=== PATIENT | female | born 1990 | race Caucasian/White ===

== ENCOUNTER 2022-12-20 09:59 | Emergency (ER) | payer OTHER, SELFPAY ==
[2022-12-20] VITALS (14 sets, daily range): BP systolic 111–128; BP diastolic 77; PULSE 69–89; RESP 13–20; TEMP 36.8; O2SAT 100
--- NOTE | ~2022-12-20 | XR_ITS ---
EXAMINATION: XR chest 1V portable DATE: 12/20/2022 13:24 INDICATION: Cough and shortness of breath. TECHNIQUE: A single frontal view of the chest was obtained. COMPARISON: None. FINDINGS: There is no pneumonia, pleural effusion, or pneumothorax. The heart size is normal. IMPRESSION: 1. No acute cardiopulmonary disease. Reviewed, dictated and finalized at location A.
--- NOTE | ~2022-12-20 | US_ITS ---
EXAMINATION: US OB <=14 wk fetus w TV DATE: 12/20/2022 13:08 INDICATION: Left lower quadrant abdominal pain. Early . TECHNIQUE: Real-time transabdominal and transvaginal pelvic ultrasound was performed. COMPARISON: None. FINDINGS: TRANSABDOMINAL ULTRASOUND: The uterus measures 9.9 x 6.1 x 7.1 cm. TRANSVAGINAL ULTRASOUND: There is an intrauterine gestational sac. A yolk sac is identified. The fet al crown rump length measures 2.8 cm, which correlates with an estimated gestational age of 9 weeks a nd 4 day(s) (+/-) 6 day(s). heart motion is identified measuring 171 beats per minute (bpm) by M-mode Doppler. The right ovary measures 3.7 x 2.0 x 2.0 cm. The left ovary measures 2.8 x 1.5 x 1.5 cm. There is normal vascular flow in the ovaries. There is no free fluid in the pelvis. IMPRESSION: 1. Single living intrauterine gestation with estimated date of delivery of 07/21/2023. Reviewed, dictated and finalized at location A. IMPRESSION: 1. Single living intrauterine gestation with estimated date of delivery of .
[2022-12-20 10:35] LABS: Basophils Percent Auto 0.4 % (0.2-1.2); Eosinophils Absolute Auto 0.1 K/mm3 (0-0.3); Eosinophils Percent Auto 0.6 % (0-4.4); Hematocrit 38.6 % (37.0-47.0); Hemoglobin 12.6 g/dL (12.0-15.0); Immature Granulocyte Absolute 0.02 K/mm3 (0.00-0.031); Immature Granulocyte Percent A 0.2 % (0-0.5); Lymphocytes Absolute Auto 2.27 K/mm3 (0.9-3.2); Lymphocytes Percent Auto 27.1 % (18.3-44.2); Mean Corpuscular HGB Conc 32.6 g/dl (32-36); Mean Corpuscular Hemoglobin 28.2 pg (26-34); Mean Corpuscular Volume 86.4 fl (80-100); Mean Platelet Volume 8.4 fl (7.4-10.4); Monocytes Absolute Auto 0.6 K/mm3 (0.1-0.6); Monocytes Percent Auto 6.9 % (2.6-8.5); Neutrophils Absolute Auto 5.4 K/mm3 (1.3-6.7); Neutrophils Percent Auto 64.8 % (45.5-73.1); Platelet Count Result 299 k/mm3 (150-375); Red Blood Count 4.47 M/mm3 (4.2-5.4); Red Cell Distribution Width 13.8 % (11.5-14.5); White Blood Count 8.4 K/mm3 (4.5-10.0)
--- NOTE | 2022-12-20 12:11 | ED.FEMALEGU ---
HPI - Female Genitourinary General Chief complaint: Vaginal Bleeding Stated complaint: abdominal pain, vaginal bleeding, Time Seen by Provider: 12/20/22 12:02 History of Present Illness HPI Narrative: Patient is a 32-year-old female presenting with abdominal pain in the setting of early . Patient states that she often has irregular cycles. States that she has been bleeding off and on for the last 6 weeks. States that the vaginal bleeding stopped about 2 weeks ago and over the last several days she has had left-sided abdominal pain. States that she took a test 3 days ago and it was positive. States that she called a new ANIMAL RESCUER who advised that she come in for evaluation. States that if she remains still her abdominal pain resolved. States that movement and coughing exacerbates it. Associated with nausea and intermittent vomiting. Denies fevers or chills, chest pain, dysuria, hematuria, constipation, leg swelling. States that she has had a cough off and on for the last several days. Related Data Home Medications Medication Instructions Recorded Confirmed alprazolam 0.25 mg tablet 0.25 mg PO DAILY 10/09/19 01/08/20 aripiprazole 5 mg tablet 5 mg PO DAILY 10/09/19 01/08/20 buspirone 10 mg tablet 10 mg PO TID 10/09/19 01/08/20 multivitamin 1 tablet PO DAILY 10/09/19 01/08/20 duloxetine 60 mg capsule,delayed 60 mg PO DAILY 01/08/20 01/08/20 release Allergies Allergy/AdvReac Type Severity Reaction Status Date / Time amoxicillin Allergy unknown Verified 01/15/20 14:42 tetracycline AdvReac Anxiety Verified 01/15/20 14:42 Review of Systems Review of Systems: All systems reviewed & are unremarkable except as noted in HPI and below PMFSH Past Medical History Medical History Anxiety Anxiety and depression Olfactory hallucination Tetanus Social History Social History Smoking status: Never smoker Alcohol use details: rarely Substance use: never Occupation/Education: occupation 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 HEAD: Normocephalic, atraumatic. EYES: PERRLA and EOMI. ENT: Nares clear, no rhinorrhea or epistaxis. Mucous membranes moist. NECK: Supple. CHEST: Clear to auscultation. No respiratory distress. HEART: Regular rate and rhythm. Normal peripheral pulses. ABDOMEN: Soft, +LLQ tenderness, no guarding or rebound EXTREMITIES: Normal range of motion. No edema. SKIN: Warm, dry, no rash. NEURO: No focal deficits. Alert and oriented x3. PSYCH: Normal mood and affect. Course Vital Signs Vital signs: Vital Signs Temperature 98.2 F 12/20/22 10:14 Pulse Rate 89 12/20/22 10:14 Respiratory Rate 16 12/20/22 10:14 Blood Pressure 128/77 12/20/22 10:14 Pulse Oximetry 100 12/20/22 10:14 Oxygen Delivery Room Air 12/20/22 10:14 Temperature 98.2 F 12/20/22 10:14 Pulse Rate 83 12/20/22 14:18 Respiratory Rate 20 12/20/22 14:18 Blood Pressure 112/77 12/20/22 14:18 Pulse Oximetry 100 12/20/22 14:18 Oxygen Delivery Room Air 12/20/22 10:57 MDM - Female Genitourinary MDM Narrative Medical decision making narrative: Patient is a 32-year-old female presenting with left-sided abdominal pain in the setting of early . Vital signs within normal limits. Exam remarkable for the above. Hemoglobin is stable. Beta hCG is 188,000. Blood type is O+. Plan for pelvic ultrasound and CXR. Pelvic ultrasound shows single intrauterine gestation at approximately 9 weeks and 4 days gestation. heartbeat is around 170. Chest x-ray shows no acute abnormalities. Patient is negative for COVID and flu. On reevaluation, the patient is resting comfortably. Discu
[2022-12-20 13:01] LABS: Influenza A QL RT-PCR Negative (Negative); Influenza B QL RT-PCR Negative (Negative); SARS-CoV-2 RNA PCR Negative (Negative)
== END 2022-12-20 14:20 | disposition home or self-care (01) ==
PROVIDERS: Emergency Medicine; Emergency Provider Emergency Medicine; PCP Obstetrics & Gynecology
DX: O26.891 Other specified pregnancy related conditions, first trimester (principal); R10.9 Unspecified abdominal pain; O99.341 Other mental disorders complicating pregnancy, first trimester; F41.8 Other specified anxiety disorders; Z20.822 Contact with and (suspected) exposure to COVID-19; Z3A.09 9 weeks gestation of pregnancy
CPT/HCPCS: 36415; 71045; 76801; 76817; 81025; 84702; 85025; 85461; 86850; 86900; 86901; 87636; 99284

== ENCOUNTER 2023-06-03 20:33 | Outpatient (CLI) | payer OTHER, SELFPAY ==
[2023-06-03 21:43] VITALS: BP 117/63; PULSE 93
== END 2023-06-03 22:15 | disposition home or self-care (01) ==
LOC: ANHOBOP 20:42 → ANHOBPP 20:42
PROVIDERS: PCP Obstetrics & Gynecology; Visit Provider Obstetrics & Gynecology
DX: O41.8X90 Other specified disorders of amniotic fluid and membranes, unspecified trimester, not applicable or unspecified (principal); Z3A.00 Weeks of gestation of pregnancy not specified
CPT/HCPCS: 99199

== ENCOUNTER 2023-07-07 10:34 | Observation (INO) | payer OTHER, SELFPAY ==
--- NOTE | ~2023-07-07 | US_ITS ---
EXAMINATION: US OB follow up DATE: 07/07/2023 12:12 INDICATION: Rupture of membranes. TECHNIQUE: Real-time ultrasound of the pelvis was performed. COMPARISON: Ultrasound 12/20/2022 FINDINGS: There is a single living fetus in vertex presentation. The placenta is on the right. heart rat e is 129 beats per minute (bpm). The amniotic fluid index is 7.2, which is low (5th percentile is 7.3 cm). The following biometric data were obtained: Biparietal diameter (BPD): 9.6 cm; head circumference (HC): 35.8 cm; abdominal circumference (AC): 35 .5 cm; femur length (FL): 7.5 cm. These measurements are concordant. Estimated weight is 3797 g +/- 570 g, which correlates with the 91st percentile when 07/21/23 i s used as estimated date of delivery. As single measurements, these parameters are each equal to the following estimated gestational ages: BPD: 39 weeks 1 days. HC: Out of range. AC: 39 weeks 3 days. FL: 38 weeks 4 days. estimated gestational age based solely on measurements from this exam is 39 weeks 0 days +/- 2 weeks 5 days. IMPRESSION: 1. Single living fetus in vertex presentation. 2. Large for gestational age. Estimated weight is 3797 g +/- 570 g, which correlates with the 9 1st percentile when 07/21/23 is used as estimated date of delivery. This date was set by ultrasound o n 12/20/2022. 3. Oligohydramnios. Reviewed, dictated and finalized at location A. [employer] IMPRESSION: 1. Single living fetus in vertex presentation. 2. Large for gestational age. Estimated weight is 3797 g +/- 570 g, which correlates with the 91st percentile when 07/21/23 is used as estimated date of delivery. This date was set by ultrasound on 12/20/2022. 3. Oligohydramnios.
[2023-07-07 11:31] VITALS: BP 119/73; PULSE 73
--- NOTE | 2023-08-07 17:51 | PM.OBTRLD ---
OB - Triage/Final Diagnosis Visit Information Comments/Additional reasons for admission: I have assessed the risk for this patient, Sommer Barboas, and determined that she would benefit from observation care. Final Diagnosis (1) Amniotic fluid leaking: Code(s): O42.90 - Premature rupture of membranes, unspecified as to length of time between rupture and onset of labor, unspecified weeks of gestation Status: Acute
== END 2023-07-07 12:50 | disposition home or self-care (01) ==
PROVIDERS: Admitting Provider Obstetrics & Gynecology; PCP Nurse Practitioner Family; Visit Provider Obstetrics & Gynecology
DX: O42.913 Preterm premature rupture of membranes, unspecified as to length of time between rupture and onset of labor, third trimester (principal); Z3A.38 38 weeks gestation of pregnancy
CPT/HCPCS: 71045; 76816; 84112; 96372; 99283; G0378; G0379; J2270

== ENCOUNTER 2023-07-07 23:31 | Emergency (ER) | payer OTHER, SELFPAY ==
--- NOTE | ~2023-07-07 | XR_ITS ---
EXAMINATION: XR chest 1V portable DATE: 07/08/2023 00:17 INDICATION: Right axillary rib pain. TECHNIQUE: frontal view of the chest was obtained. COMPARISON: Chest radiograph dated 12/20/2022 FINDINGS: The lungs are clear with no focal airspace opacities, pulmonary edema, pleural effusion or pneumothor ax. The cardiomediastinal silhouette is normal. Metallic foreign body external to the patient project ing over the right humeral head. Visualized bones and soft tissues are unremarkable. IMPRESSION: 1. No acute cardiopulmonary disease. Reviewed, dictated and finalized at location A. H CARE SPECIALIST
[2023-07-07 23:33] VITALS: BP 143/89; PULSE 113; RESP 22; TEMP 36.7; O2SAT 100
[2023-07-08] MEDS: MORPHINE SULFATE (*CRX) 4 MG/ML INJ IM (00:24)
--- NOTE | 2023-07-08 01:06 | ED.GENADULT ---
HPI - General Adult General Chief complaint: Unspecified Stated complaint: Rib pain Time Seen by Provider: 07/07/23 23:58 History of Present Illness HPI narrative: Patient 33-year-old female presents to emergency department with chief complaint of rib pain. Patient reports that she started having right-sided rib pain around 8:00 a.m. this evening a few she was having a Thanh Ayala contraction lifted her arm back and during that episode she coughed the patient reports she heard a crack in 1 of her ribs and has been having right-sided rib pain since then the patient denies crepitance denies abdominal pain patient reports she has been evaluated by OB earlier today and is planning on a induction on the . Related Data Home Medications Medication Instructions Recorded Confirmed aripiprazole 5 mg tablet 5 mg PO DAILY 10/09/19 06/21/23 vits no.126-ferrous fum 1 tablet PO DAILY 06/21/23 06/21/23 28 mg iron-folic acid 800 mcg tablet (Classic ) sertraline 50 mg tablet 50 mg PO DAILY 06/21/23 06/21/23 Allergies Allergy/AdvReac Type Severity Reaction Status Date / Time amoxicillin Allergy unknown Verified 06/21/23 12:10 tetracycline AdvReac Anxiety Verified 06/21/23 12:10 Review of Systems Review of Systems: A 10 system review of systems was completed on the patient and is negative except for what is stated in the HPI. Nursing and ancillary documentation was reviewed. 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 HEAD: Normocephalic, atraumatic. EYES: PERRLA and EOMI. ENT: Nares clear, no rhinorrhea or epistaxis. Mucous membranes moist. NECK: Supple. CHEST: Clear to auscultation. No respiratory distress. Right-side rib tenderness no crepitance no subcutaneous emphysema HEART: Regular rate and rhythm. No murmur heard. Normal peripheral pulses. ABDOMEN: Soft, nontender, nondistended, normal active bowel sounds. EXTREMITIES: Normal range of motion. No edema. SKIN: Warm, dry, no rash. NEURO: No focal deficits. Alert and oriented x3. PSYCH: Normal mood and affect. Course Vital Signs Vital signs: Vital Signs Temperature 36.7 C 07/07/23 23:33 Pulse Rate 113 H 07/07/23 23:33 Respiratory Rate 22 H 07/07/23 23:33 Blood Pressure 143/89 H 07/07/23 23:33 Pulse Oximetry 100 07/07/23 23:33 Oxygen Delivery Room Air 07/07/23 23:33 Temperature 36.7 C 07/07/23 23:33 Pulse Rate 113 H 07/07/23 23:33 Respiratory Rate 22 H 07/07/23 23:33 Blood Pressure 143/89 H 07/07/23 23:33 Pulse Oximetry 100 07/07/23 23:33 Oxygen Delivery Room Air 07/07/23 23:33 Medical Decision Making MDM Narrative Medical decision making narrative: Differential diagnosis: Rib fracture, rib contusion, pneumothorax, Patient's pain was controlled after discussing risks and benefits of narcotic pain medication. Plain film chest x-ray showed no evidence of pneumothorax and no evidence of displaced rib fracture Patient patient was instructed to perform incentive spirometry and given some spirometer in the emergency department Vital Signs Vital Signs: Vital Signs Temperature 36.7 C 07/07/23 23:33 Pulse Rate 113 H 07/07/23 23:33 Resp
== END 2023-07-08 01:18 | disposition home or self-care (01) ==
PROVIDERS: Emergency Provider Emergency Medicine; PCP Nurse Practitioner Family
DX: O9A.213 Injury, poisoning and certain other consequences of external causes complicating pregnancy, third trimester (principal); S29.9XXA Unspecified injury of thorax, initial encounter; O99.343 Other mental disorders complicating pregnancy, third trimester; F41.9 Anxiety disorder, unspecified; F32.A Depression, unspecified; Z3A.38 38 weeks gestation of pregnancy; X58.XXXA Exposure to other specified factors, initial encounter
CPT/HCPCS: 71045; 96372; 99283; J2270

== ENCOUNTER 2023-07-12 10:26 | Outpatient (CLI) | payer OTHER, SELFPAY ==
[2023-07-12 11:45] VITALS: BP 108/68; PULSE 76
== END 2023-07-12 11:50 | disposition home or self-care (01) ==
LOC: ANHOBOP 11:48 → ANHLDR 11:48
PROVIDERS: PCP Nurse Practitioner Family; Visit Provider Obstetrics & Gynecology
DX: O42.90 Premature rupture of membranes, unspecified as to length of time between rupture and onset of labor, unspecified weeks of gestation (principal)
CPT/HCPCS: 59025; 84112; 99199

== ENCOUNTER 2023-07-12 17:54 | Inpatient (IN) | payer OTHER, SELFPAY ==
[2023-07-12] VITALS (10 sets, daily range): BP systolic 102–119; BP diastolic 56–82; PULSE 78–103; BMI 38.9
--- NOTE | 2023-07-12 19:12 | WPDHPUPDATE1 ---
History and Physical Update Update Date/Time: 07/12/23 19:12 33-year-old primipara who presents with ruptured membranes. she is 38 weeks and 5 days gestation. She has reassuring heart tones. We will proceed with expectant management, consider augmentation. History and Physical has been reviewed, including an updated exam of the patient. There are NO changes in the patient's condition. Risks, benefits, and alternatives have been discussed and questions answered. Patient agrees to proceed with procedure.
[2023-07-12 19:24] LABS: Basophils Percent Auto 0.2 % (0.2-1.2); Eosinophils Absolute Auto 0.1 K/mm3 (0-0.3); Eosinophils Percent Auto 0.9 % (0-4.4); Hematocrit 32.1 % (37.0-47.0); Hemoglobin 9.8 g/dL (12.0-15.0); Immature Granulocyte Absolute 0.04 K/mm3 (0.00-0.031); Immature Granulocyte Percent A 0.4 % (0-0.5); Lymphocytes Absolute Auto 2.27 K/mm3 (0.9-3.2); Lymphocytes Percent Auto 20.6 % (18.3-44.2); Mean Corpuscular HGB Conc 30.5 g/dl (32-36); Mean Corpuscular Hemoglobin 24.9 pg (26-34); Mean Corpuscular Volume 81.5 fl (80-100); Mean Platelet Volume 8.7 fl (7.4-10.4); Monocytes Absolute Auto 0.7 K/mm3 (0.1-0.6); Monocytes Percent Auto 6.7 % (2.6-8.5); Neutrophils Absolute Auto 7.8 K/mm3 (1.3-6.7); Neutrophils Percent Auto 71.2 % (45.5-73.1); Platelet Count Result 297 k/mm3 (150-375); Red Blood Count 3.94 M/mm3 (4.2-5.4); Red Cell Distribution Width 15.8 % (11.5-14.5)
[2023-07-12] MEDS: OXYTOCIN 30 UNITS/NS 500 ML 30 UNITS/500 ML BAG IV CONT (19:36)
[2023-07-12] MEDS: LACTATED RINGERS 1,000 ML 125 ML IV CONT (19:37)
[2023-07-12] MEDS: CALCIUM CARBONATE (TUMS) 500 MG (200 MG ELEMENTAL) PO (20:57)
[2023-07-12] MEDS: SERTRALINE HCL 50 MG TABLET PO (21:32)
[2023-07-12] MEDS: ARIPiprazole 5 MG TABLET PO (21:32)
[2023-07-12] MEDS: ONDANSETRON INJ 4 MG/2 ML VIAL IV PUSH (22:29)
[2023-07-13] VITALS (156 sets, daily range): BP systolic 84–128; BP diastolic 44–91; PULSE 63–128; RESP 16–18; TEMP 36.6–37.3; O2SAT 96–100
[2023-07-13] MEDS: LACTATED RINGERS 1,000 ML 125 ML IV CONT ×2 (01:25→08:04)
--- NOTE | 2023-07-13 01:37 | WPDANESEPP ---
Anes - Eval Pre Procedure Procedure: labor epidural Date/Time: 07/13/23 01:37 Surgeon: nadja Preop Diagnosis: pain during labor Pre Op Diagnosis: Leaking Patient Data Age: 33 Gender: F Height: 1.63 m Weight: 103 kg Last Vital Signs Temp 36.8 C 07/13/23 00:00 Pulse 67 07/13/23 00:31 BP 102/68 07/13/23 00:31 O2 Del Method Room Air 07/12/23 18:46 Allergies Allergy/AdvReac Type Severity Reaction Status Date / Time amoxicillin Allergy unknown Verified 06/21/23 12:10 tetracycline AdvReac Anxiety Verified 06/21/23 12:10 Home Medications Medication Instructions Recorded Confirmed Type aripiprazole 5 mg tablet 5 mg PO HS 10/09/19 07/12/23 History vits no.126-ferrous fum 1 tablet PO DAILY 06/21/23 07/12/23 History 28 mg iron-folic acid 800 mcg tablet (Classic ) sertraline 50 mg tablet 50 mg PO HS 06/21/23 07/12/23 History Laboratory Tests 07/12/23 19:19 WBC 11.0 H K/mm3 (4.5-10.0) RBC 3.94 L M/mm3 (4.2-5.4) Hgb 9.8 L g/dL (12.0-15.0) Hct 32.1 L % (37.0-47.0) MCV 81.5 fl (80-100) MCH 24.9 L pg (26-34) MCHC 30.5 L g/dl (32-36) RDW 15.8 H % (11.5-14.5) Plt Count 297 k/mm3 (150-375) MPV 8.7 fl (7.4-10.4) Immature Gran % (Auto) 0.4 % (0-0.5) Neut % (Auto) 71.2 % (45.5-73.1) Lymph % (Auto) 20.6 % (18.3-44.2) [place] % (Auto) 6.7 % (2.6-8.5) Eos % (Auto) 0.9 % (0-4.4) Baso % (Auto) 0.2 % (0.2-1.2) Lymph # (Auto) 2.27 K/mm3 (0.9-3.2) [place] # (Auto) 0.7 H K/mm3 (0.1-0.6) Eos # (Auto) 0.1 K/mm3 (0-0.3) Baso # (Auto) 0.0 K/mm3 (0.0-0.1) Abs Immat Gran (auto) 0.04 H K/mm3 (0.00-0.031) Absolute Neuts (auto) 7.8 H K/mm3 (1.3-6.7) Absolute Nucleated RBC 0.0 K/mm3 (0.0-0.012) Nucleated RBC % 0.0 % (0.0-0.2) RPR Pending Blood Type O Positive Antibody Screen Negative Patient hx anesthesia problems: none Family hx anesthesia problems: none Results Review: All pre-operative results and documents have been reviewed as part of the pre-operative evaluation. [facility] Past Medical History Medical History (Updated 07/13/23 @ 01:38 by Yael Ocasio CRNA) Anxiety Anxiety and depression Intrauterine Obesity Olfactory hallucination Tetanus Family History Family History Mother Congenital hypothyroidism Sibling Narcolepsy Sibling Heart murmur Social History Social History Smoking status: Never smoker Second hand tobacco smoke exposure: No Alcohol use details: rarely Substance use: never Lack of Transportation: No Lack of Food: Never True Current Housing: I Have Housing Concerned About Future Housing: No Difficulty Paying Gas/Electric Bills: No Difficulty Paying for Meds: No Currently Unemployed: No Education: Master's Degree or Higher Difficulty w/ Childcare or Family Care: No 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
--- NOTE | 2023-07-13 08:25 | PM.OBPNVD ---
OB - PN: Subj Subjective Date/time seen: 07/13/23 08:25 Interval history: Appropriate progress in labor, reassuring heart tones. To start pushing soon. Adequate anesthesia. OB - PN: Obj Data Labs 07/12/23 19:19 Labs: Laboratory Results - last 24 hr 07/12/23 19:19 WBC 11.0 H RBC 3.94 L Hgb 9.8 L Hct 32.1 L MCV 81.5 MCH 24.9 L MCHC 30.5 L RDW 15.8 H Plt Count 297 MPV 8.7 Immature Gran % (Auto) 0.4 Neut % (Auto) 71.2 Lymph % (Auto) 20.6 [place] % (Auto) 6.7 Eos % (Auto) 0.9 Baso % (Auto) 0.2 Lymph # (Auto) 2.27 [place] # (Auto) 0.7 H Eos # (Auto) 0.1 Baso # (Auto) 0.0 Abs Immat Gran (auto) 0.04 H Absolute Neuts (auto) 7.8 H Absolute Nucleated RBC 0.0 Nucleated RBC % 0.0 Blood Type O Positive Antibody Screen Negative OB - PN A/P Time Spent With Patient Time: Total time spent is greater than 50% in coordination of care (as documented) at patient's floor/unit and/or counseling patient:
[2023-07-13] MEDS: ceFAZolin 2 GM/D5W 50 ML 2 GM/50 ML BAG IVPB (09:04)
--- NOTE | 2023-07-13 10:27 | P.PCNOB_ITS ---
OB - Vaginal Delivery Note Procedure Delivery date: 07/13/23 Induction method: None Delivery augmentation: Pitocin Delivery monitor: External FHT and External Uterine Route of delivery: Episiotomy description: None Laceration Description: Perineal - 2nd Degree Delivery repair: vicryl Quantitative Blood Loss (ml): 58 Anesthesia type: Epidural Disposition: Floor Complications: No immediate complications [place] Baby Date of : 07/13/23 Time of : 10:08 Weeks of gestation at delivery: 38 Infant gender: Female Weight (pounds): 8 Weight (ounces): 0 score one minute: 7 score five minutes: 8
[2023-07-13] MEDS: OXYTOCIN 30 UNITS/NS 500 ML 30 UNITS/500 ML BAG 125 UNITS IV CONT (10:48)
--- NOTE | 2023-07-13 13:05 | OBPPTRN ---
Patient transferred to post room # 283 via ( wheelchair ). Support person present. PT and fob both recipients of instructions and no barriers to learning identified at this time. PT received such instructions via one to one discussion, mom baby care guide and demonstrations this shift. PT oriented to unit, room, information board, rooming in, admission packet and security measures. Patient verbalizes understanding.
[2023-07-13] MEDS: IBUPROFEN 600 MG TABLET PO ×2 (13:36→21:18)
[2023-07-13 14:08] LABS: Rapid Plasma Reagin Non-Reactive (NonReactive)
[2023-07-13] MEDS: DOCUSATE SODIUM 100 MG CAPSULE PO (17:26)
[2023-07-13] MEDS: POLYSACCHARIDE IRON COMPLEX 150 MG CAPSULE PO (17:26)
[2023-07-13] MEDS: ACETAMINOPHEN 325 MG TABLET 650 MG PO ×2 (17:29→23:46)
[2023-07-13] MEDS: ARIPiprazole 5 MG TABLET PO (21:18)
[2023-07-13] MEDS: SERTRALINE HCL 50 MG TABLET PO (21:18)
[2023-07-14] MEDS: IBUPROFEN 600 MG TABLET PO ×2 (04:48→15:59)
[2023-07-14 05:28] LABS: Hematocrit 28.7 % (37.0-47.0); Hemoglobin 8.6 g/dL (12.0-15.0)
--- NOTE | 2023-07-14 07:37 | P.PNOB_ITS ---
OB - PN: Subj Subjective Date/time seen: 07/14/23 07:37 Interval history: pp day 1 doing well breast and bottle OB - PN: Obj Data Labs 07/14/23 04:49 Labs: Laboratory Results - last 24 hr 07/12/23 07/14/23 19:19 04:49 Hgb 8.6 L Hct 28.7 L RPR Non-reactive OB - PN A/P Plan day: 1 Plan: routine care Time Spent With Patient Time: Total time spent is greater than 50% in coordination of care (as documented) at patient's floor/unit and/or counseling patient: Review of Systems Review of Systems: All systems reviewed & are unremarkable except as noted in HPI and below Exam 2 Const: General: cooperative and healthy appearing Chest: Chest palpation & inspection: normal inspection of the chest Resp: Effort & Inspection: normal respiratory effort Back/Spine/Pelvis: Back: no CVA tenderness Skin: General skin exam: normal color Extrem: Right lower extremity: normal to inspection Left lower extremity: normal to inspection
[2023-07-14 09:09] VITALS: BP 100/59; PULSE 78; RESP 18; TEMP 36.6; O2SAT 78
[2023-07-14] MEDS: ACETAMINOPHEN 325 MG TABLET 650 MG PO ×2 (09:58→19:40)
[2023-07-14] MEDS: POLYSACCHARIDE IRON COMPLEX 150 MG CAPSULE PO ×2 (09:58→15:59)
[2023-07-14] MEDS: MULTIVIT/MIN/PREN/FOL AC/IRON TABLET 1 TAB PO (09:58)
[2023-07-14] MEDS: DOCUSATE SODIUM 100 MG CAPSULE PO ×2 (09:58→15:59)
--- NOTE | 2023-07-14 11:39 | WPDANLDPN2 ---
Anes-Prog Note L&D Date/Time: 07/14/23 11:39 Comfortable throughout: labor and delivery Neuraxial method: epidural Epidural/Spinal procedure site: clean & non-tender Neuro status: Neuro function grossly intact. Cardiovascular status: normal Respiratory status: normal Airway patency: baseline Mental status: baseline Post-Op hydration status: normal Vital Signs: Last Vital Signs Temp 97.9 F 07/14/23 09:09 Pulse 78 07/14/23 09:09 Resp 18 07/14/23 09:09 BP 100/59 L 07/14/23 09:09 Pulse Ox 78 L 07/14/23 09:09 O2 Del Method Room Air 07/14/23 07:35 Pain score (VAS): 0 Post-procedural complaints: none Patient feedback: Patient satisfied with anesthetic care.
--- NOTE | 2023-07-14 17:08 | PC.NURSE ---
0820 Introductions were made, then consulted with patient to assess needs related to . Mother led the conversation with her?plans to feed?her and the?experience so far. Encouraged understanding of the benefits of skin to skin (demonstrating unwrapping infant and placing upright on her chest), stimulating with massage touch, changing positions to encourage wakefulness, how to watch for early feeding cues, responsive feeding, feeding on demand (aiming for 8-12 times in 24 hours, about every 2-3 hours), milk production, building/maintaining a milk supply, duration of feeding, signs of adequate intake/output and how to record on the feeding sheet. Mother works well with her with encouragement and education. Reviewed use of nipple shield for flattened nipples. Reviewed positioning and ear, shoulder, hip alignment, supporting the breast to facilitate a deep latch, asymmetrical latch (off-center), leading with the chin with a big, open, wide gape and body close to mother. Infant latched optimally to the both breasts in football position. Education given to the mother of how to visualize the suckling (with good rocking jaw motion), swallows (dropping of the lower jaw) and how to listen for drinking at the breast (the ka sound). Infant was able to maintain latch without pain to mother protecting the nipple with optimal positioning and latching while using the nipple shield. Reviewed comfort measures of healing with a warm, wet washcloth to rinse breast, then leave open to air-dry, good handwashing when or touching the breast/nipples to prevent infection. Mother voiced understanding of skin to skin, stimulating with massage touch, responsive feedings, hand expressed colostrum, talking to to encourage if it has been 2 -2.5 hours since the start of the last , to call if infant does not latch, or if there is discomfort with . Resources used for education were facilitated with the mom and baby guide, Inpatient resources provided with business card, feeding sheet, name written on the communication board, and the mom/baby guide. Parents voiced understanding of information, demonstrated learning and will call if there is a request for assistance. Reported to the Primary RN.
[2023-07-14 19:35] VITALS: BP 105/63; PULSE 94; RESP 16; TEMP 36.8
[2023-07-14] MEDS: SERTRALINE HCL 50 MG TABLET PO (20:47)
[2023-07-14] MEDS: ARIPiprazole 5 MG TABLET PO (20:47)
--- NOTE | 2023-07-15 08:32 | P.PNOB_ITS ---
OB - PN: Subj Subjective Date/time seen: 07/15/23 08:32 Interval history: pp day 1 doing well breast and bottle Patient comments: no complaints, pain well controlled and tolerating diet OB - PN: Obj Data Labs 07/14/23 04:49 OB - PN A/P Plan day: 2 Plan: routine care and discharge home Time Spent With Patient Time: Total time spent is greater than 50% in coordination of care (as documented) at patient's floor/unit and/or counseling patient: Exam Const: General: comfortable and no acute distress Resp: Effort & Inspection: normal respiratory effort Auscultation: no ra les, no rhonchi and no wheezes Cardio: Rate: regular rate Heart sounds: no click, no murmurs and no rubs GI: GI Palp: Yes Soft to palpation and No Tenderness to palpation present (GI) Auscultation: normal bowel sounds Extrem: General: normal to inspection, no pedal edema and no calf tenderness
--- NOTE | 2023-07-15 08:33 | PM.OBDSVD ---
DS: Admitting Diagnosis Discharge Date July 15, 2023 Admitting Diagnosis term OB - DS: Summary OB Procedures : None OB Procedures Intrapartum: Spontaneous Vag Delivery OB Procedures: : None Peripartum Data Laceration Description: Perineal - 2nd Degree Episiotomy description: None Time Spent with Patient Time attestation: Total time spent providing and/or coordinating discharge services: Discharge Plan Discharge Discharging Clinician: Vilma Velasquez Patient Disposition: Home, Self-Care Activity: pelvic rest Diet: regular Patient Instructions: Antibiotic Form Stand Alone Forms: General Discharge Information Follow-up/Referrals: Vilma Velasquez MD [Physician] - Discharge Medications: Continued aripiprazole 5 mg tablet 5 mg PO HS sertraline 50 mg tablet 50 mg PO HS Classic 28 mg iron- 800 mcg Tablet 1 tablet PO DAILY Date of admission: 07/12/23 17:54 Primary Care Provider: Rosa,Autumn Chung Admitting Provider: Vilma Velasquez Attending physician on admission: Vilma Velasquez Condition: Stable
[2023-07-15] MEDS: MULTIVIT/MIN/PREN/FOL AC/IRON TABLET 1 TAB PO (08:45)
[2023-07-15] MEDS: POLYSACCHARIDE IRON COMPLEX 150 MG CAPSULE PO (08:45)
[2023-07-15] MEDS: DOCUSATE SODIUM 100 MG CAPSULE PO (08:45)
[2023-07-15] MEDS: IBUPROFEN 600 MG TABLET PO (08:45)
[2023-07-15 08:55] VITALS: BP 103/71; PULSE 63; RESP 18; TEMP 36.9; O2SAT 98
--- NOTE | 2023-07-15 11:25 | WPDANLDPN2 ---
Anes-Prog Note L&D Date/Time: 07/15/23 11:25 Comfortable throughout: labor and delivery Neuraxial method: epidural Epidural/Spinal procedure site: clean & non-tender Neuro status: Neuro function grossly intact. Cardiovascular status: normal Respiratory status: normal Airway patency: baseline Mental status: baseline Post-Op hydration status: normal Vital Signs: Last Vital Signs Temp 98.5 F 07/15/23 08:55 Pulse 63 07/15/23 08:55 Resp 18 07/15/23 08:55 BP 103/71 07/15/23 08:55 Pulse Ox 98 07/15/23 08:55 O2 Del Method Room Air 07/14/23 07:35 Pain score (VAS): 2 I/O: Intake & Output 07/14/23 07/15/23 07/15/23 23:59 07:59 15:59 Intake Total 240 Balance 240 Post-procedural complaints: none Patient feedback: Patient satisfied with anesthetic care. 2nd day visit per request of RN due to pt having complaints of back back radiating around sides & small bruise to back. spoke with patient. pt concerned re back pain radiating to sides, pt also reports experiencing rib injury prior to admission. states tenderness to back mild. no further complaints. site clean with sm redness/bruiseing to insertion site. reassurance provided. instructed on heating pad/ice/ibuprofen.
--- NOTE | 2023-07-15 11:31 | PC.NURSE ---
Patient viewed the discharge video Mother & Baby Care, The First Two Weeks online. Patient was given the opportunity and encouraged to ask questions. Patient verbalized understanding of information shared and has been given the mother/baby guide for home reference.
== END 2023-07-15 13:25 | disposition home or self-care (01) | DRG 807 ==
LOC: ANHLDR 18:24 → ANHOB2 07-13 13:14
PROVIDERS: Admitting Provider Obstetrics & Gynecology; PCP Nurse Practitioner Family; Visit Provider Obstetrics & Gynecology
DX: O69.81X0 Labor and delivery complicated by cord around neck, without compression, not applicable or unspecified (principal); Z37.0 Single live birth; O70.1 Second degree perineal laceration during delivery; Z3A.38 38 weeks gestation of pregnancy
CPT/HCPCS: 36415; 59025; 84112; 85014; 85018; 85025; 86592; 86850; 86900; 86901; 99199; A9270; J0690; J2405; J2590; J2795; J7120

== ENCOUNTER 2023-07-19 17:20 | Outpatient (CLI) | payer OTHER, SELFPAY ==
[2023-07-19 17:45] VITALS: BP 125/79; PULSE 69
[2023-07-19 17:46] VITALS: BP 118/77; PULSE 70
[2023-07-19 18:00] VITALS: BP 118/79; PULSE 63
[2023-07-19 18:15] VITALS: BP 118/68; PULSE 66
--- NOTE | 2023-07-19 18:51 | PM.IMHP ---
H&P: HPI History of Present Illness Date/Time: 07/19/23 18:51 Chief Complaint: pt came in for evaluation delivered on 07/13/23. Pt c/o headache, bilateral rib pain, mild swelling of bilateral extremities and foul vaginal odor x 2 days. blood pressures within normal range. breast feeding [facility] Past Medical History Medical History (Updated 07/19/23 @ 18:55 by Thais Dick CNM) Anxiety Anxiety and depression Intrauterine Obesity Olfactory hallucination Tetanus Family History Family History Mother Congenital hypothyroidism Sibling Narcolepsy Sibling Heart murmur Social History Social History Smoking status: Never smoker Second hand tobacco smoke exposure: No Alcohol use details: rarely Substance use: never Lack of Transportation: No Lack of Food: Never True Current Housing: I Have Housing Concerned About Future Housing: No Difficulty Paying Gas/Electric Bills: No Difficulty Paying for Meds: No Currently Unemployed: No Education: Master's Degree or Higher Difficulty w/ Childcare or Family Care: No Occupation/Education: occupation Additional occupation/education comments: [employer] Gender identity (if verbalized by the patient): Female Spiritual care concerns: No Meds Home Medications and Allergies Home Medications Medication Instructions Recorded Confirmed Type aripiprazole 5 mg tablet 5 mg PO HS 10/09/19 07/12/23 History vits no.126-ferrous fum 1 tablet PO DAILY 06/21/23 07/12/23 History 28 mg iron-folic acid 800 mcg tablet (Classic ) sertraline 50 mg tablet 50 mg PO HS 06/21/23 07/12/23 History Allergies Allergy/AdvReac Type Severity Reaction Status Date / Time amoxicillin Allergy unknown Verified 06/21/23 12:10 tetracycline AdvReac Anxiety Verified 06/21/23 12:10 Vital Signs Vital Signs - 24 hr 07/19/23 17:45 07/19/23 17:46 07/19/23 18:00 Pulse Rate 69 70 63 Blood Pressure 125/79 118/77 118/79 07/19/23 18:15 Pulse Rate 66 Blood Pressure 118/68 Exam Const: General: cooperative Chest: Chest palpation & inspection: normal inspection of the chest Resp: Effort & Inspection: normal respiratory effort Cardio: Rate: regular rate GI: Other: soft : Other: speculum exam small amount of bloody discharge noted, odor noted. bimanual exam negative Back/Spine/Pelvis: Back: no CVA tenderness Skin: General skin exam: normal color Neuro: General: oriented to person and patient oriented x3 Extrem: Right lower extremity: edema Details: non-pitting and 1+ Left lower extremity: edema Details: non-pitting and 1+ Psych: Appearance: grossly normal Assessment and Plan Assessment and plan (1) Headache: Code(s): R51.9 - Headache, unspecified Status: Acute (2) Vaginitis: Code(s): N76.0 - Acute vaginitis Status: Acute Plan labs ordered awaiting results
[2023-07-19] MEDS: ACETAMINOPHEN/BUTALBITAL/CAFFEINE 325-50-40 MG TABLET (FIORICET) 1 TAB PO (19:30)
[2023-07-19] MEDS: metroNIDAZOLE 500 MG TABLET PO (19:33)
[2023-07-19 19:36] LABS: Basophils Absolute Auto 0.1 K/mm3 (0.0-0.1); Basophils Percent Auto 0.6 % (0.2-1.2); Eosinophils Absolute Auto 0.2 K/mm3 (0-0.3); Eosinophils Percent Auto 1.7 % (0-4.4); Hematocrit 35.7 % (37.0-47.0); Hemoglobin 10.5 g/dL (12.0-15.0); Immature Granulocyte Absolute 0.04 K/mm3 (0.00-0.031); Immature Granulocyte Percent A 0.5 % (0-0.5); Lymphocytes Absolute Auto 1.95 K/mm3 (0.9-3.2); Lymphocytes Percent Auto 22.4 % (18.3-44.2); Mean Corpuscular HGB Conc 29.4 g/dl (32-36); Mean Corpuscular Hemoglobin 24.6 pg (26-34); Mean Corpuscular Volume 83.6 fl (80-100); Mean Platelet Volume 8.2 fl (7.4-10.4); Monocytes Absolute Auto 0.5 K/mm3 (0.1-0.6); Monocytes Percent Auto 5.9 % (2.6-8.5); Neutrophils Percent Auto 68.9 % (45.5-73.1); Platelet Count Result 367 k/mm3 (150-375); Red Blood Count 4.27 M/mm3 (4.2-5.4); Red Cell Distribution Width 16.6 % (11.5-14.5); White Blood Count 8.7 K/mm3 (4.5-10.0)
[2023-07-19] MEDS: LACTATED RINGERS 1,000 ML 999 ML IV CONT (19:40)
[2023-07-19 19:48] LABS: Alanine Aminotransferase 22 U/L (6-35); Albumin Level 3.7 g/dL (3.5-5.1); Alkaline Phosphatase 133 U/L (38-126); Anion Gap 6 mmol/L (8-16); Aspartate Amino Transferase 29 U/L (14-36); Bilirubin,Total 0.6 mg/dL (0.2-1.3); Blood Urea Nitrogen 10 mg/dL (7-17); Calcium 8.8 mg/dL (8.4-10.2); Carbon Dioxide 22 mmol/L (22-30); Chloride 111 mmol/L (98-107); Estimated Glomerular Filt Rate > 60; Glucose 86 mg/dL (65-110); Potassium 4.2 mmol/L (3.4-5.0); Sodium 139 mmol/L (137-145); Uric Acid 5.5 mg/dL (2.5-7.5)
[2023-07-19 19:55] LABS: Hypochromasia 1+ (NORMAL); Platelet Estimate Adequate (Adequate); Schistocytes None Seen (NORMAL)
[2023-07-19 19:56] LABS: Anisocytosis 2+ (NORMAL)
== END 2023-07-19 20:35 | disposition home or self-care (01) ==
LOC: ANHOBOP 17:27 → ANHOBPP 17:27
PROVIDERS: Advanced Practice Midwife; PCP Nurse Practitioner Family; Visit Provider Obstetrics & Gynecology
DX: N76.0 Acute vaginitis (principal); R51.9 Headache, unspecified
CPT/HCPCS: 36415; 80053; 84550; 85025; 99199; A9270; J7120

== ENCOUNTER 2025-05-09 11:29 | Outpatient (CLI) | payer OTHER, SELFPAY ==
--- NOTE | ~2025-05-09 | US_ITS ---
EXAMINATION: US pelvic complete w TV DATE: 05/09/2025 12:28 INDICATION: Abnormal uterine bleeding. TECHNIQUE: Multiple transabdominal sonographic images of the pelvis were obtained. COMPARISON: None. FINDINGS: The uterus measures 9.0 x 3.7 x 5.8 cm. There is no free fluid in the pelvis. The endometrial complex measures 9 mm in thickness. The right ovary measures 2.1 x 2.7 x 1.8 cm. The left ovary measures 2.0 x 5.0 x 2.5 cm. There is normal vascular flow in the ovaries. IMPRESSION: 1. Normal pelvis. Reviewed, dictated and finalized at location E. IMPRESSION: 1. Normal pelvis.
--- OUTSIDE RECORDS SUMMARY | 2025-05-09 11:33 | XMS_ITS | Encounter Summary ---
Author Organization [facility] Address [address] [place] [id number] Care Team Providers Care Jigman Name Role Phone Autumn Lee NP Primary Care Provider [phone] Encounter Details Date Type Department Care Team (Late st Contact Info) Description 04/30/2024 DNN Corpt Message Enc [facility] Family & Internal Medicine [facility] [id number] [place] [phone] [place], [facility] Provider Appt needs to be reset Social History Tobacco Use Types Packs/Day Years Used Date Smoking Tobacco: Never Smokeless Tobacco: Never Alcohol Use Standard Drinks/Week Comments Yes 0 (1 standard drink = 0.6 oz pur e alcohol) social AUDIT-C Answer Date Recorded Frequency of Alcohol Consumption Never 06/26/2018 Average Number of Drinks Not on file 018 Frequency of Binge Drinking Not on file 06/08 PHQ-2 Answer Date Recorded Patient Health Questionnaire-2 Score 0 10/11/2023 Comments No Sex and Gender Information Value Date Recorded Sex Assigned at Female 12/20/2024 10:51 AM CDT Legal Sex Female 5:30 PM CDT Gender Identity Female 03/07/2025 7:25 AM CDT Sexual Orientation Not on file documented as of this encounter Plan of Treatment Not on file documented as of this encounter Visit Diagnoses Not on filedocumented in this encounter Additional Health Concerns Assessment Noted Time PHQ-9 Depression Total Score: 4 10/19/19 23 9:41 AM CDT documented as of this encounter Care Teams Jigman Relationship Specialty [place] [address] [facility] [address] [place] [address] PCP - General Nurse Practitioner Family 06/21/22 documented as of this encounter
--- OUTSIDE RECORDS SUMMARY | 2025-05-09 11:34 | XMS_ITS | Clinical Summary ---
Author Organization [facility] Address [facility] [place] [address] Care Team Providers Care Dismantler Name Role Phone Autumn Lee NP Primary Care Provider Allergies No known active allergies Medications Cholecalciferol (VITAMIN D3) 2000 units Cap Take 1 capsule by mouth daily. 01/31/2017 Active vitamin D2, ergocalciferol, (DRISDOL) 1.25 mg capsule Take 1 capsule (1.25 mg total) by mouth once a week. 10/13/2023 Active atomoxetine (STRATTERA) 40 MG capsule daily. Active sertraline (ZOLOFT) 100 MG tablet Take 1 tablet (100 mg total) by mouth every morning. FOR 14 DAYS Active hydrOXYzine (ATARAX) 25 MG tablet Take 1 tablet (25 mg total) by mouth 3 (three) times daily. 10/03/2024 Active sertraline (ZOLOFT) 50 MG tablet Take 1 tablet (50 mg total) by mouth daily. 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 Olfactory hallucinations 03/16/2025 Right foot pain 03/16/2025 S/P ankle arthrodesis 03/16/2025 Low folate 03/16/2025 Sciatica 06/13/2023 Overview (06/13/2023): resolved Obesity (BMI 30-39.9) 08/08/2022 Acne 03/07/2018 Tennis elbow 03/07/2018 Anxiety disorder 03/08/2016 Headache 03/08/2016 Migraine 03/08/2016 Resolved Problems Problem Noted Date Diagnosed Date Resolved Date ([facility]) 01/18/2023 03/07/20 25 Encounters Date Type Department Care Team Description 03/07/2025 7:20 AM CDT Office Visit [facility] Family & Internal Medicine [address] [phone] Autumn Lee NP Anxiety (Follow up anxiety / medications) 03/07/2025 Travel from Last 3 Months Immunizations Immunization Administration Dates Next Due Fluzone 6 Months+ Quad (0.5 mL Prefilled Syringe ) 06/22/2022 Tdap (Historical Only-select from magnify glass) 01/30/2019 Family History Medical History Relation Comments broken back Father Relation Status Comments Father Alive Mother Alive Social History Tobacco Use Types Packs/Day Years Used Date Smoking Tobacco: Never Smokeless Tobacco: Never Tobacco Cessation:Counseling Given: No Alcohol Use Standard Drinks/Week Comments Yes 0 (1 standard drink = 0.6 oz pur e alcohol) social AUDIT-C Answer Date Recorded Frequency of Alcohol Consumption Never 06/26/2018 Average Number of Drinks Not on file 018 Frequency of Binge Drinking Not on file 06/08 PHQ-2 Answer Date Recorded Patient Health Questionnaire-2 Score 0 03/07/2025 Comments No Sex and Gender Information Value Date Recorded Sex Assigned at Female 12/20/2024 10:51 AM CDT Legal Sex Female 5:30 PM CDT Gender Identity Female 03/07/2025 7:25 AM CDT Sexual Orientation Not on file Last Filed Vital Signs Vital Sign Reading Time Taken Comments Blood Pressure 105/74 03/07/2025 7:25 AM CDT Pulse 75 03/07/2025 7:25 AM CDT Temperature 36.7 C (98.1 F) 03/07/2025 7:25 AM CDT Respiratory Rate 18 03/07/2025 7:25 AM CDT Oxygen Saturation 98% 03/07/2025 7:25 AM CDT Inhaled Oxygen Concentration - - Weight 93.1 kg (205 lb 3.2 oz) 03/07/2025 7:25 A M CDT Height 160 cm (5' 3) 03/07/2025 7:25 AM CDT Body Mass Index 36.35 03/07/2025 7:25 AM CDT Plan of Treatment Health Maintenance Due Date Last Done Comments Annual Physical 01/20/1991 Hepatitis C 01/20/2006 HPV Vaccines (1 - 3-dose SCD M series) 01/20/2015 Cervical Cancer Screening Pa p with HPV Testing (Age 30 to 64) Every 5 Years 01/20/2018 COVID-19 Vaccine (2 - 2024-2 6 season) 2025 05/23/2022 Influenza Adult (#1) 2025 06/22/2022 Hepatitis B Vaccines (1 of 3 - 19+ 3-dose series) 03/07/2026 Postponed from 01/05 (Patient/Guardian Refusal) Cervical Cancer Screening Pa p Smear (Age 30 to 64) Every 3 Years 10/10/2026 10/11/2023, 08/22/2018 Cervical Cancer Screening with HPV 10/10/2026 DTaP, Tdap and Td Vaccines ( 2 - Td or Tdap) 01/30/2029 01/30/2019 PHQ-2 (Physician [place]) Completed 03/07/2025 Meningococcal B Vaccine Aged Out No l onger eligible based on patient's age to complete this topic Meningococcal Vaccine Aged Out No marge harlan eligible based on patient's age to complete this topic Pneumococcal Vaccine: Pediatrics (0 to 5 Years) and At-Risk Patients (6 to 49 Years) Aged Out No longer eligible b ased on patient's age to complete this topic RSV Immunizations Under 20 Months Aged Out No longer eligible b ased on patient's age to complete this topic Procedures Procedure Name Priority Date/Time Associated Diagnosis Comments OUTSIDE CYTOPATH CERV/VAG INTERPRET (PAP) (SCAN ORDER) 08/22/2018 from Last 3 Months or Most Recently Relevant to Health Maintenance Results * PAP SMEAR (08/22/2018) 08/22/2018 Narrative 08/22/2018 Ordered by an unspecified provider. us Documents Scanned SCANNING Final Result from Last 3 Months or Most Recently Relevant to Health Maintenance Insurance [facility] Care Teams Dismantler Relationship Specialty [place] [id number] [address] [place] [address] PCP - General Nurse Practitioner Family 06/21/22
--- OUTSIDE RECORDS SUMMARY | 2025-05-09 11:34 | XMS_ITS | Data Portability ---
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 Discussed plan. Not available 07/11/2023 10:40:32 07/25/2023 07/25/2023 No Charge Visit. consult. [email or web address] Not available 07/25/2023 12:50:00 10/11/2023 10/11/2023 Annual gynecological exam performed. Patient will come back in a year unless there are new symptoms. Not available 10/11/2023 14:16:17 Plan of Treatment Reminders Order Date Submit Date Provider Last Modified By Organization Details Last Modified Time Details Appointments None recorded. Lab CBC w/ auto diff 2023 024 [facility] (Lab), [address], [place], [address], 4 03:48:06 CMP, serum or plasma 2023 024 [facility] (Lab), [address], [place], [address], 4 03:48:07 lipid panel, blood 2023 024 [facility] (Lab), [address], [place], [address], 4 03:48:07 TSH, serum or plasma 2023 024 [facility] (Lab), [address], [place], [address], 4 03:48:08 vitamin D, 25-hydroxy, total, serum 2023 024 [facility] (Lab), [address], [place], [address], 4 03:48:08 Referral None recorded. Procedures None recorded. Surgeries None recorded. Imaging US, obstetric, biophysical profile + non-stress test 2022 023 [email or web address] [place], [facility] [address], [address], [place], [address], 3 18:44:36 Medication Orders None recorded. Patient TargetsNo targets recorded. Patient InstructionsNo instructions recorded. Reason for Referral None Reported. Results Created Date Observation Date Name Description Value Unit Range Abnormal Flag Note LastModifiedBy Organization Detail LastModifiedTime 06/26/2006/26/2023 CULTU RE: GROUP B STREP SCREE N, REFLE X SUSCE PTIBI LITY result report SEE RESULT S BELOW Test: Cultu re: Group B Strep , Refle x Susce ptibi lity ([facility] ) Speci men Sourc e: Vagin a/Rec morgan Speci men Type: Vagin al/Re ctal Speci men Date: 06/26 3:26 PM Resul t Date: 06/29 2:52 PM Resul t Statu s: Final resul t Abnor mal: No Resul ting Lab: [facility] [address] [facility] [address] Tel: CULTU RE ----- ----- ----- --- No Group B strep isola eula at 2 days (anup ctive broth trip salter t) Not Available [facility] (Lab) [address], [place], [address], 06/29/2023 15:55:42 10/11/19 24 10/11/2023 CBC W/DIF F WBC 6.2 10'3/ uL 3.5-10 .5 Not Available [facility] (Lab) [address], [place], [address], 10/12/2023 03:48:03 10/11/19 24 10/11/2023 CBC W/DIF F RBC 5.08 10'6/ uL (based on docume nted legal sex) 3.80-5 .20 Not Available [facility] (Lab) [address], [place], [address], 10/12/2023 03:48:03 10/11/19 24 10/11/2023 CBC W/DIF F HGB 12.3 g/dL (based on docume nted legal sex) 11.6-1 5.4 Not Available [facility] (Lab) [address], [place], [address], 10/12/2023 03:48:03 10/11/19 24 10/11/2023 CBC W/DIF F HCT 39.9 % (based on docume nted legal sex) 34.0-4 5.0 Not Available [facility] (Lab) [address], [place], [address], 10/12/2023 03:48:03 10/11/19 24 10/11/2023 CBC W/DIF F MCV 78.5 fL 80.0-9 9.0 low Not Available [facility] (Lab) [address], [address], 10/12/2023 03:48:03 10/11/19 24 10/11/2023 CBC W/DIF F MCH 24.2 pg 27.0-3 4.0 low Not Available [facility] (Lab) [address], [place], [address], 10/12/2023 03:48:03 10/11/19 24 10/11/2023 CBC W/DIF F MCHC 30.8 g/dL 32.0-3 5.5 low Not Available [facility] (Lab) [address], [place], [address], 10/12/2023 03:48:03 10/11/19 24 10/11/2023 CBC W/DIF F RDW 15.5 % 11.0-1 5.0 high Not Available [facility] (Lab) [address], [place], [address], 10/12/2023 03:48:03 10/11/19 24 10/11/2023 CBC W/DIF F plt 412 10'3/ uL 150-40 0 high Not Available [facility] (Lab) [address], [place], [address], 10/12/2023 03:48:03 10/11/19 24 10/11/2023 CBC W/DIF F MPV 9.1 fL 8.8-12 .1 Not Available [facility] (Lab) [address], [place], [address], 10/12/2023 03:48:03 10/11/19 24 10/11/2023 CBC W/DIF F NRBC's 0.0 % 0.0 Not Available [facility] (Lab) [address], [place], [address], 10/12/2023 03:48:03 10/11/19 24 10/11/2023 CBC W/DIF F absolute NRBCs 0.0 10'3/ uL 0.0 Not Available [facility] (Lab) [address], [place], [address], 10/12/2023 03:48:03 10/11/19 24 10/11/2023 CBC W/DIF F neutrophils 59.6 % 34.0-7 3.0 Not Available [facility] (Lab) [address], [place], [address], 10/12/2023 03:48:03 10/11/19 24 10/11/2023 CBC W/DIF F lymphocytes 32.2 % 15.0-5 0.0 Not Available [facility] (Lab) [address], [place], [address], 10/12/2023 03:48:03 10/11/19 24 10/11/2023 CBC W/DIF F monocytes 6.6 % 1.0-15 .0 Not Available [facility] (Lab) [address], [place], [address], 10/12/2023 03:48:03 10/11/19 24 10/11/2023 CBC W/DIF F eosinophils 0.8 % 0.0-8. 0 Not Available [facility] (Lab) [address], [place], [address], 10/12/2023 03:48:03 10/11/19 24 10/11/2023 CBC W/DIF F basophils 0.5 % 0.0-2. 0 Not Available [facility] (Lab) [address], [place], [address], 10/12/2023 03:48:03 10/11/19 24 10/11/2023 CBC W/DIF F immature granulocytes 0.3 % no define d refere nce range Not Available [facility] (Lab) [address], [place], [address], 10/12/2023 03:48:03 10/11/19 24 10/11/2023 CBC W/DIF F absolute neutrophils 3.7 10'3/ uL 1.5-8. 0 Not Available [facility] (Lab) [address] [place], [address], 10/12/2023 03:48:03 10/11/19 24 10/11/2023 CBC W/DIF F absolute lymphocytes 2.0 10'3/ uL 1.0-4. 0 Not Available [facility] (Lab) [address], [place], [address], 10/12/2023 03:48:03 10/11/19 24 10/11/2023 CBC W/DIF F absolute monocytes 0.4 10'3/ uL 0.2-1. 0 Not Available [facility] (Lab) [address], [place], [address], 10/12/2023 03:48:03 10/11/19 24 10/11/2023 CBC W/DIF F absolute eosinophils 0.1 10'3/ uL 0.0-0. 6 Not Available [facility] (Lab) [address], [place], [address], 10/12/2023 03:48:03 10/11/19 24 10/11/2023 CBC W/DIF F absolute basophils 0.0 10'3/ uL 0.0-0. 3 Not Available [facility] (Lab) [address], [place], [address], 10/12/2023 03:48:03 10/11/19 24 10/11/2023 CBC W/DIF F absolute immature granulocytes 0.0 10'3/ uL 0.00-0 .10 024 1:12 AM: P indic ates parti al resul ts on a panel have been relea sed. Addit ional resul ts will follo w. 024 1:12 AM: This resul t has been final verif ied. No addit ional or wilder ed resul ts are expec eula. Not Available [facility] (Lab) [address], [place], [address], 10/12/2023 03:48:03 10/11/19 24 10/11/2023 LIPID PANEL ,AMA (LDL- CALC) total cholesterol 141 mg/dL 0-199 Not Available [facility] (Lab) [address] [place], [address], 10/12/2023 03:48:07 10/11/19 24 10/11/2023 LIPID PANEL ,AMA (LDL- CALC) triglyceride s 84 mg/dL 0.00-1 50.00 NCEP Refer ence Value s for Trigl yceri pili: Margoth l: <150 mg/dL Borde rline High: 150 - 199 mg/dL High: 200 - 499 mg/dL Very High: >/= 500 mg/dL Not Available [facility] (Lab) [address] [place], [address], 10/12/2023 03:48:07 10/11/19 24 10/11/2023 LIPID PANEL ,AMA (LDL- CALC) HDL cholesterol 46 mg/dL >40 Not Available [facility] (Lab) [address] [place], [address], 10/12/2023 03:48:07 10/11/19 24 10/11/2023 LIPID PANEL ,AMA (LDL- CALC) LDL cholesterol 79 mg/dL 0-99 Cutof f value s recom flavio d by the Natio nal Bonnie stero l Educa tion Progr am: SIERRA ABLE: Bonnie stero l <200 mg/dL LDL <100 mg/dL BORDE RLINE : Bonnie stero l 200-2 39 mg/dL LDL 101-1 59 mg/dL HIGHE R RISK: Bonnie stero l >240 mg/dL LDL >160 mg/dL , HDL <40 mg/dL Not Available [facility] (Lab) [address] [place], [address], 10/12/2023 03:48:07 10/11/19 24 10/11/2023 LIPID PANEL ,AMA (LDL- CALC) non-HDL cholesterol 95 mg/dL no refere nce range A reaso nable goal for non-H DL bonnie stero l is one that is 30 mg/dL highe r than the LDL bonnie stero l goal. Not Available [facility] (Lab) [address] [place], [address], 10/12/2023 03:48:07 10/11/19 24 10/11/2023 LIPID PANEL ,AMA (LDL- CALC) chol/HDL ratio 3.1 . 0.0-5. 0 On November 29, 2022, [facility] labor atori barber wilder ed the equat ion for calcu latin g estim ated low-d ensit y lipop rotei n-cho leste rol (LDL- C) from the Fried yina equat ion to the Dona n/Cecy chaudhry equat ion. This new equat ion is only valid for lipid panel s with trigl yceri pili < 400 mg/dL . Studi es have demon strat ed that this new equat ion will impro ve the accur acy of LDL-C , espec ially in scena howard when LDL-C emeterio ntrat ions are relat ively low (< 100 mg/dL ), trigl yceri pili are eleva eula, or patie nt is non-f astin g. Refer ences : - Dona suresh, Mahendra Chauhan, Harpreet Aviles , Fadi rodrigues, Jasson Deal, Jasson burnette, Dontrell Kaminski. Tonio cadena , and Satish Abdi . 2013. Comp ariso n of a Novel Metho d vs the Fried yina Equat ion for Estim ating Low-D ensit y Lipop rotei n Bonnie stero l Level s from the Stand lucille Lipid Profi le. ALBERTO: The Journ al of the Ameri can Medic al Assoc iatio n 310 (19): 2060- . - Neida montoya V, Lorrie J, Jose ar A, Ashley M, Bernard e R, Génesis montoya E, Tonio cadena RS, Jin SR, Dona suresh SS. Fast ing Versu s Nonfa sting and Low-D ensit y Lipop rotei n Bonnie stero l Accur acy. Circu latclaudette n. 2017Aug 08;137 (1):1 0-19. Not Available [facility] (Lab) [address], [place], [address], 10/12/2023 03:48:07 10/11/19 24 10/11/2023 CMP(C OMPRE HENSI VE METAB OLIC PANEL ) sodium 140 mmol/ L 133-14 6 Not Available [facility] (Lab) [address], [place], [address], 10/12/2023 03:48:07 10/11/19 24 10/11/2023 CMP(C OMPRE HENSI VE METAB OLIC PANEL ) potassium 3.8 mmol/ L 3.5-5. 1 Not Available [facility] (Lab) [address], [place], [address], 10/12/2023 03:48:07 10/11/19 24 10/11/2023 CMP(C OMPRE HENSI VE METAB OLIC PANEL ) chloride 104 mmol/ L 98-107 Not Available [facility] (Lab) [address], [place], [address], 10/12/2023 03:48:07 10/11/19 24 10/11/2023 CMP(C OMPRE HENSI VE METAB OLIC PANEL ) carbon dioxide 25 mmol/ L 21-31 Not Available [facility] (Lab) [address], [place], [address], 10/12/2023 03:48:07 10/11/19 24 10/11/2023 CMP(C OMPRE HENSI VE METAB OLIC PANEL ) anion gap 11 mmol/ L 4-13 Not Available [facility] (Lab) [address], [place], [address], 10/12/2023 03:48:07 10/11/19 24 10/11/2023 CMP(C OMPRE HENSI VE METAB OLIC PANEL ) blood urea nitrogen 9 mg/dL 7-25 Not Available [facility] (Lab) [address] [place], [address], 10/12/2023 03:48:07 10/11/19 24 10/11/2023 CMP(C OMPRE HENSI VE METAB OLIC PANEL ) creatinine 1.00 mg/dL 0.60-1 .30 Not Available [facility] (Lab) [address], [place], [address], 10/12/2023 03:48:07 10/11/19 24 10/11/2023 CMP(C OMPRE HENSI VE METAB OLIC PANEL ) egfrcr (CKD-epi 2020) 75 mL/mi n/1.7 3_m2 >=60 Not Available [facility] (Lab) [address], [place], [address], 10/12/2023 03:48:07 10/11/19 24 10/11/2023 CMP(C OMPRE HENSI VE METAB OLIC PANEL ) calcium 9.3 mg/dL 8.3-10 .5 Not Available [facility] (Lab) [address], [place], [address], 10/12/2023 03:48:07 10/11/19 24 10/11/2023 CMP(C OMPRE HENSI VE METAB OLIC PANEL ) glucose 87 mg/dL 70-100 Not Available [facility] (Lab) [address], [place], [address], 10/12/2023 03:48:07 10/11/19 24 10/11/2023 CMP(C OMPRE HENSI VE METAB OLIC PANEL ) protein, total 7.3 g/dL 6.4-8. 3 Not Available [facility] (Lab) [address], [place], [address], 10/12/2023 03:48:07 10/11/19 24 10/11/2023 CMP(C OMPRE HENSI VE METAB OLIC PANEL ) albumin 4.5 g/dL 3.5-5. 0 Not Available [facility] (Lab) [address], [place], [address], 10/12/2023 03:48:07 10/11/19 24 10/11/2023 CMP(C OMPRE HENSI VE METAB OLIC PANEL ) ALT 19 units /L 9-43 Not Available [facility] (Lab) [address] [place], [address], 10/12/2023 03:48:07 10/11/19 24 10/11/2023 CMP(C OMPRE HENSI VE METAB OLIC PANEL ) alkaline phosphatase 80 units /L 34-104 Not Available [facility] (Lab) [address], [place], [address], 10/12/2023 03:48:07 10/11/19 24 10/11/2023 CMP(C OMPRE HENSI VE METAB OLIC PANEL ) AST 20 units /L 13-39 Not Available [facility] (Lab) [address], [place], [address], 10/12/2023 03:48:07 10/11/19 24 10/11/2023 CMP(C OMPRE HENSI VE METAB OLIC PANEL ) bilirubin, total 0.6 mg/dL 0.2-1. 2 Not Available [facility] (Lab) [address] [place], [address], 10/12/2023 03:48:07 10/11/19 24 10/11/2023 TSH, REFLE X FREE T4 TSH 1.22 uIU/m L 0.30-5 .33 Not Available [facility] (Lab) [address] [place], [address], 10/12/2023 03:48:08 10/11/19 24 10/11/2023 VITAM IN D, 25-OH (TOTA L D2/D3 ) vitamin D, 25-hydroxy, total 20.9 NG/mL 30.0-1 00.0 low Sugge stive of Defic iency : <20 ng/mL Sugge stive of Insuf ficie ncy: 20-29 ng/mL Sugge stive of Suffi cienc y: 30-10 0 ng/mL Sugge stive of Toxic ity: >150 ng/mL Not Available [facility] (Lab) [address] [place], [address], 10/12/2023 03:48:08 10/11/19 24 10/11/2023 IMAGE GUIDE D PAP AND HPV REGAR DLESS image guided Pap, HPV regardless of Pap result SEE RESULT S BELOW CASE REPOR T: Cytol ogy Gynec ologi britney Repor t Case: [id number] Autho joel chu Provi soraya: Meme Velasquez MD Colle cted: 10/10 1442 Order ing Locat ion: [place] Path[facility] Recei talya: 10/11 0056 First Scree n: Delfino lazar, Eh ace, CT Speci men: Myla robles Pap - Image d, Cervi x STATE MENT OF ADEQU ACY: Satis facto ry for evalu ation Trans forma tion zone compo nent prese nt FINAL DIAGN OSIS: Negat gloria for Intra epith elial Lesclaudette suresh or Danish hickman (NIL) . Elect maribel hanley vijaya d by Eh Kaur am, CT on 2023 at 9:58 AM ----- ----- ----- ----- ----- ----- ----- ----- ----- ----- ----- ----- ----- ----- ----- ----- ----- ---- HPV RESUL TS: HPV mRNA E6/E7 : No HPV mRNA Detec eula NOTE: This high risk HPV mRNA assay detec ts fourt een high- risk HPV types (16, 18, 31, 33, 35, 39, 45, 51, 52, 56, 58, 59, 66, 68) witho ut diffe renti ation . COMME NT: This speci men was revie wed by a Cytot echno logis t and/o r Patho logis t (as indic ated in this repor t) after evalu ation using the Thinp rep Imagi ng Syste m. CLINI BRITNEY INFOR MATIO N: Menst rual Statu s: LMP (if appli cable ): Clini britney Histo ry/Pr eviou s Pap: Type of Neopl marivel (if appli cable ): Signi fican t Clini britney Findi ngs: Other Histo ry: Hormo tressa (if appli cable ): PAP EDUCA ANDREW L NOTE: The Pap Test is a scree travis test with an inher ent false negat gloria rate. Liqui d-bas ed sampl ing may decre ase, but will not elimi kennedy, false negat gloria resul ts. A negat gloria resul t does not precl ude the prese nce and/o r devel opmen t of disea se, since the prese nce of abnor mal cells in the sampl e depen ds on the locat ion of the lesio n and sampl ing techn ique. Elliot nued regul ar scree travis is the best metho d of cance r preve ntion . If repor eula cytol ogic findi ng do not corre late with physi britney and/o r histo rical findi ngs, furth er inves tigat ion is recom flavio d, as clini lorraine warra nted. Not Available [facility] (Lab) [address], [place], [address], 10/16/2023 11:00:24 07/04/20 23 07/04/2023 non-s tress test No observ ation record ed. [email or web address] [place] [address], [place], [address], 07/04/2023 14:27:05 07/04/20 23 non-s tress test No observ ation record ed. [email or web address] Not Available 07/04 15:56:50 07/06/20 23 07/06/2023 non-s tress test No observ ation record ed. [place] [address], [place], [address], 07/06/2023 17:06:18 07/06/20 23 non-s tress test No observ ation record ed. [email or web address] Not Available 07/06 17:10:42 07/07/20 23 07/07/2023 US, obste tric, follo w-up No observ ation record ed. [email or web address] [facility] [address], [place], [address], 07/10/2023 17:43:10 07/11/20 23 07/11/2023 US, obste tric, bioph ysica l profi le + non-s tress test No observ ation record ed. [email or web address] [place] [address], [place], [address], 07/11/2023 13:11:20 07/11/20 23 08/14/2023 non-s tress test No observ ation record ed. [place] [address], [place], [address], 08/14/2023 13:19:26 07/11/20 23 07/11/2023 non-s tress test No observ ation record ed. [place] [address], [place], [address], 07/11/2023 12:15:14 07/11/20 23 07/11/2023 US, obste tric, follo w-up No observ ation record ed. [email or web address] [address], [place], [address], 07/12/2023 08:07:22 Result Notes None recorded. Problems Name Problem SNOMED Code Status Onset Date Resolution Date Notes Provider Name and Address Organization Details Recorded Time Sciatica 79852942 Completed resolved Kaleigh leos [facility] 3 10:57:42 [id number] Completed 202207/17/2023 Kaleigh leos [facility] 10:57:47 Notes:Some problems listed i n Document: #[id number] could not be added to this patient's chart. Please review this document and add these problems to the patient's chart manually as needed. Problem Notes None recorded. Procedures Surgical History Date Name Laterality Status Provider Name and Address Organization Details Recorded Time 3 Date of Last Pap Smear completed [facility] 08/14/2023 10:52:33 7 procedure on lower leg completed [facility] 01/18/2023 14:39:21 Imaging Results None recorded. Procedure Notes None recorded. Medical Equipment None Reported. Allergies No known drug allergies Medications Name Sig Start Date Stop Date Status Note LastModified by Organization Details LastModified Time amoxicillin 500 mg capsule TAKE 1 CAPSULE BY MOUTH EVERY 6 HOURS UNTIL GONE 10/10 completed Not Available Not Available Not Available hydrocodone 5 mg-acetamin ophen 325 mg tablet TAKE 1 TABLET BY MOUTH EVERY 6 HOURS NEEDED FOR PAIN FOR 3 DAYS 10/10 completed Not Available Not Available Not Available metronidazo le 0.75 % (37.5 mg/5 gram) vaginal gel INSERT 1 APPLICATO RFUL VAGINALLY AT BEDTIME FOR 5 DAYS 10/10 completed Not Available Not Available Not Available ondansetron HCl 4 mg tablet Take 1 tablet by mouth as needed every 4-6 hours for nausea. 10/10 completed Not Available Not Available Not Available sertraline 100 mg tablet TAKE 1 TABLET BY MOUTH ONCE DAILY IN THE MORNING active Not Available Not Available No t Available metronidazo le 500 mg tablet TAKE 1 TABLET BY MOUTH TWICE DAILY FOR 7 DAYS 10/10 completed Not Available Not Available Not Available buspirone 10 mg tablet TAKE 1 TABLET BY MOUTH TWICE DAILY DIRECTED 01/18 completed Not Available Not Available Not Available ergocalcife rol (vitamin D2) 1,250 mcg (50,000 unit) capsule TAKE 1 CAPSULE BY MOUTH ONCE A WEEK FOR 12 WEEKS active Not Available Not Available No t Available sertraline 50 mg tablet TAKE 1 TABLET BY MOUTH ONCE DAILY AT BEDTIME 10/10 completed Not Available Not Available Not Available metoclopram [place] 10 mg tablet TAKE 1 TABLET BY MOUTH THREE TIMES DAILY FOR 14 DAYS 10/10 completed Not Available Not Available Not Available aripiprazol e 15 mg tablet TAKE 1/2 (ONE-HALF ) TABLET BY MOUTH ONCE DAILY AT BEDTIME active Not Available Not Available No t Available nitrofurant oin monohydrate /macrocryst als 100 mg capsule TAKE 1 CAPSULE BY MOUTH TWICE DAILY FOR 5 DAYS 01/18 completed Not Available Not Available Not Available duloxetine 30 mg capsule,del ayed release TAKE 1 CAPSULE BY MOUTH ONCE DAILY AT BEDTIME FOR A TOTAL DOSE OF 90MG 01/18 completed Not Available Not Available Not Available duloxetine 60 mg capsule,del ayed release TAKE 1 CAPSULE BY MOUTH ONCE DAILY IN THE MORNING 01/18 completed Not Available Not Available Not Available sertraline 01/18 completed Not Available Not Available Not Available active Not Available Not Avai lable Not Available aripiprazol e 01/18 completed Not Available Not Available Not Available clindamycin 1.2 % (1 % base)-benzo yl peroxide 5 % topical gel APPLY THIN LAYER TOPICALLY ONCE DAILY NEEDED 01/18 completed Not Available Not Available Not Available Vitals Date Recorded Body height Body mass index (BMI) Body weight Systolic And Diastolic Provider Name and Address Organization Details Last Updated DateTime 08/14/2023 162.56 cm 36.4 kg/m2 77380.58 g 113/75 mm[Hg] Tracie Deidre [facility] 08/14/2023 10:51:43 Date Recorded Body height Body mass index (BMI) Body weight Systolic And Diastolic Provider Name and Address Organization Details Last Updated DateTime 10/11/2023 162.56 cm 35 kg/m2 97568.84 g 109/74 mm[Hg] Heidi Medeiros [facility] 10/11/2023 14:17:44 Date Recorded Body weight Provider Name an d Address Organization Details Last Updated DateTime 07/11/2023 253059.38954 g Abilio Velasquez MD [address], [place], [address], [facility] 07/11/2023 11:15:05 Date Recorded Body height Body mass index (BMI) Systolic And Diastolic Provider Name and Address Organization Details Last Updated DateTime 07/11/2023 162.56 cm 39 kg/m2 121/78 mm[Hg] Tracie Jiang [facility] 07/11/2023 10:40:46 Social History Question Answer Notes LastModified by Organizat ion Details LastModified Time Tobacco Smoking Status Never Smoker Heidi Medeiros deric, [facility] 10/11/2023 14:19:22 How Many Years Have You Consumed Alcohol? 11 Information not available 01/18/2023 Are You Blind Or Do You Have Difficulty Seeing? No Information n ot available 01/18/2023 What Is Your Level Of Caffeine Consumption? None Information not available 01/18/2023 How Much Tobacco Do You Chew? None Information not available 01/18/2023 In The 14 Days Before Symptom Onset, Have You Had Close Contact With A Laboratory-confirm ed COVID-19 While That Case Was Ill? No Information n ot available 01/18/2023 In The 14 Days Before Symptom Onset, Have You Had Close Contact With A Person Who Is Under Investigation For COVID-19 While That Person Was Ill? No Information not available 01/18/2023 Have You Been To An Area Known To Be High Risk For COVID-19? No Information not available 01/18/2023 What Type Of Diet Are You Following? REGULAR Information n ot available 01/18/2023 What Is The Highest Grade Or Level Of School You Have Completed Or The Highest Degree You Have Received? [id number] Information not available 01/18/2023 Are There Any Guns Present In Your Home? Yes Information not available 01/18/2023 Do You Use Protection During Sex? No Information not available 01/18/2023 Do You Use Your Seat Belt Or Car Seat Routinely? Yes Information not available 01/18/2023 Do You Have Smoke And Carbon Monoxide Detectors In Your Home? Yes Information not available 01/18/2023 How Much Tobacco Do You Smoke? No Information not available 01/18/2023 Do You Use Sunscreen Routinely? No Information not available 01/18/2023 Have You Used IV Drugs? No Information not available 01/18/2023 Do You Have Difficulty Walking Or Climbing Stairs? No Information not available 10/11/2023 Sex: Unknown Functional Status Question Answer Note LastModified by Organizat ion Details LastModified Time Do you use any illicit or recreational drugs? No Information not available 01/18/2023 What is your level of alcohol consumption? None Information not available 01/18/2023 Are you able to walk independently without assistance or assistive devices? YESWOREST Information not available 01/18/2023 Are you able to care for yourself independently? Yes Information not available 10/11/2023 What is your occupation? [email or web address] Information not available 01/18/2023 Do you have difficulty dressing, bathing, grooming, or toileting? No Information not available 10/11/2023 What is your exercise level? Moderate Information not available 01/18/2023 Mental Status Question Answer Note LastModified by Organization D etails LastModified Time Do you feel stressed (tense, restless, nervous, or anxious, or unable to sleep at night)? [id number] Information not available 01/18/2023 Family History Relationship Description Onset Age of this Age Resolved Age Notes LastModified by Organization Details LastModified Time Mother Anxiety disorder Not available 2022 14:17:32 Mother Depressive disorder Not available 2022 14:17:32 Maternal Aunt Anxiety disorder Not available 2022 14:17:32 Maternal Aunt Depressive disorder Not available 2022 14:17:32 Maternal Grandmother Anxiety disorder Not available 2022 14:17:32 Maternal Grandmother Depressive disorder Not available 2022 14:17:32 Medical History Condition Response Allergies (Food, seasonal, environmental ) N Other N Breast Cancer N Drug/Latex Allergies/Reactions N Blood Transfusion N Dermatologic Disorders N Lung Disease N Defects or Inherited Disease N Breast Problem N Gestational Diabetes N Hematologic disorders N Anesthesia Complications N History of STI N Deep Vein Thrombosis N Polycystic ovary syndrome N Anxiety Disorder N Autoimmune disease N Arthritis N Infertility N Polyps N Acid Reflux (GERD) N History of abnormal pap N Cancer N Stroke N Varicosities N Neurologic/Epilepsy N Endometriosis N High Cholesterol N Headaches N Fibromyalgia N Kidney Disease N Heart Problems N Kidney or Bladder Problems N Thyroid Problems N GI Problems N Eating Disorder N Anemia N Art (IVF or FET) N Psychiatric Illness N Ovarian Cancer N Diabetes N Pulmonary (TB, Asthma) N Hepatitis/Liver Disease N No Past Medical History N Eczema N Urinary Tract Infection N Abuse/Domestic Violence N Asthma N Trauma/Violence N Depression/ depression N Heart Disease N Pre-Eclampsia N Hypertension N Osteoporosis N Thrombophilias N Gynecological History Statement/Question Response Flow Moderate Date of LMP 10/07/2023 On BCP's at Conception? N N STIs/STDs N Was last menstrual period normal N HPV Vaccine N Current Control Method None Sexually Active? Y Age of first menstrual cycle 10 Date of Last Pap Smear 01/18/2023 Sexual Problems? Y Desired Control Method Partner Vas ectomy LMP Approximate N Obstetrics History GPAL:G 10 P 1 0 9 1 Type Value Full Term 1 Induced 1 Spontaneous 8 Living 1 Total 10 Past Encounters Encounter ID Performer Location Encounter Start Date Encounter Closed Date Diagnosis/Indication Diagnosis SNOMED-CT Code Diagnosis ICD10 Code Diagnosis IMO Codes Diagnosis Note [id number] Abilio Velasquez MD [facility] [address] [address] 01/18/2023 13:28:40 01/18/2023 14:49:37 screening [id number] Z36.82 [id number] Abilio Velasquez MD [facility] [address] [address] 01/18/2023 13:29:02 01/18/2023 15:43:34 Routine care [id number] Z34.81 [id number] Abilio Velasquez MD [facility] [address] [address] 02/13/2023 15:10:32 02/13/2023 16:54:39 Routine care [id number] Z34.81 [id number] MD Jamil Queen [address],[place] [address] 03/06/2023 14:30:57 03/06/2023 15:49:37 screening for malformation 115503714 Z36.3 [id number] MD Jamil Queen [address],[place] [address] 03/06/2023 14:31:35 03/06/2023 16:55:54 Routine care [id number] Z34.81 [id number] MD Jamil Queen [address],[place] [address] 04/06/2023 14:56:27 04/06/2023 16:01:13 Routine care [id number] Z34.81 [id number] MD Jamil Queen [address],[place] [address] 04/20/2023 16:43:15 04/20/2023 17:29:24 Reduced movement [id number] O36.8199 [id number] DEBORAH MITCHELL MD [facility] [address],[place] [address] 04/27/2023 09:12:57 04/27/2023 10:08:45 Vaginitis in [id number] O23.599 - 2 week duration- will treat empiricall y for BV while awaiting swab results- discussed vaseline for barrier protection to help with healing [id number] MD Jamil Queen [address],[place] [address] 05/04/2023 09:41:55 05/04/2023 11:32:16 Routine care [id number] Z34.81 [id number] MD Jamil Queen [address],[place] [address] 05/18/2023 14:03:47 05/19/2023 08:59:42 Routine care [id number] Z34.81 [id number] MD Jamil Queen [address],[place] [address] 06/01/2023 12:33:42 06/01/2023 15:34:42 Routine care [id number] Z34.81 [id number] MD Jamil Queen [address],[place] [address] 06/15/2023 10:04:27 06/15/2023 11:04:57 Routine care [id number] Z34.81 [id number] MD Jamil Queen [address],[place] [address] 06/26/2023 09:44:49 06/26/2023 11:12:55 Routine care [id number] Z34.81 [id number] MD Jamil Queen [address],[place] [address] 07/03/2023 09:31:07 07/03/2023 11:59:59 Routine care 736261224 Z34.81 [id number] MD Jamil Queen [address],[place] [address] 07/04/2023 13:24:49 07/04/2023 14:24:06 Reduced movement 944614091 O36.8199 Z3A.37 [id number] MD Jamil Queen [address],[place] [address] 07/06/2023 16:24:23 07/06/2023 17:08:18 Reduced movement 769351510 O36.8199 Z3A.37 [id number] MD Jamil Queen [address],[place] [address] 07/11/2023 10:11:56 07/11/2023 11:20:11 Routine care [id number] Z34.81 [id number] MD Jamil Queen [address],[place] [address] 07/11/2023 10:20:36 07/11/2023 11:55:36 Oligohydramnios [id number] O41.03X0 [id number] Abilio Velasquez MD [facility] [address],[place] [address] 07/11/2023 10:20:36 07/11/2023 11:55:36 Oligohydramnios [id number] O41.03X0 Z3A.38 [id number] Abilio Velasquez MD [facility] [address],[place] [address] 07/11/2023 11:58:53 07/11/2023 12:21:52 Oligohydramnios [id number] O41.03X0 Z3A.38 [id number] Abilio Velasquez MD [facility] [address],[place] [address] 07/25/2023 10:16:56 07/25/2023 14:56:22 management [id number] Z39.1 Phone consult. Pt is 12 days post and her breast milk has not come in. Pt states the was tongue tied and did not nurse well after delivery and during their hospital stay. Pt states she started pumping when the was approximat liborio 24 hours old because she had still not successful ly latched and nursed since delivery. Pt states she has been pumping around the clock since then. Pt states she initially got small amounts of colostrum but now she gets nothing when she pumps. Pt states the infant's frenulum was clipped by the pediatrici an and she is now bottle feeding well but she has not attempted to breast feed because she knows she does not have milk. Pt states she has tried multiple supplement s, mother's milk tea, and cookies. Pt has been pumping around the clock and has changed her pumping routine and completed power pumping and a pumping schedule to mimic an infant nursing during a growth spurt. Pt is discourage d and sad. Pt denies thyroid disease and denies difficult placenta delivery and retained products. Pt states she does have abnormal menstrual cycles, a history of 8 miscarriag es, and suspected PCOS. Pt informed abnormal hormone levels could be why her breast milk has never came in. Pt informed she is doing everything that is recommende d to help increase breast milk supply. Pt informed there is no evidenced based research to support prescripti on medication and increased prolactin levels and increase breast milk supply but some providers still prescribe reglan. Pt asked to try. Pt was tearful and states she is overwhelme d and sad due to her stress over not being able to breast feed. Pt is currently taking sertraline 50mg qday and does not feel it is effective. I offered the pt an appt to discuss her mood, symptoms, and medication due to her history of anxiety and depression . Pt states she has an appointmen t with her therapist this week and they plan to discuss changing her medication s and restarted Buspar. Pt will call if she has questions about medication safety and breast feeding. Pt prescribed reglan per SP and I will follow up with pt next week. Mamie morrisseyr, DENTAL BILLING SPECIALIST [facility] [id number] Abilio Velasquez MD [facility] [address] [address] 08/14/2023 10:04:31 08/14/2023 11:58:49 care [id number] Z39.2 33-year-ol d female who presents for follow-up. She is doing well. The baby is doing well. Baby is bottle feeding. Mother denies any mood concerns. She is going to wait on contracept ion. She is concerns about her psychiatri c issues and hormonal contracept ion. She is bleeding very lightly. She is not had sex. Patient was instructed to call with any problems. She will follow up in 2-3 months for well-woman . [id number] Abilio Velasquez MD [facility] [address] [address] 10/11/2023 13:53:36 10/11/2023 14:56:11 Gynecologic examination [id number] Z01.419 Z11.51 Z11.3 Z11.8 Annual gynecologi britney exam performed. Patient will come back in a year unless there are new symptoms. Suggest Calcium with Vitamin D if not eating in diet. Patient advised to get annual flu shot. Recommend yearly physicals and preform monthly breast exams. Genetic testing is available for patients with family history of cancer. Engage in safe sexual practices, use condoms. Encouraged to have daily exercise. Avoid tobacco and illicit drugs, moderation of alcohol. If BMI greater than 25 dietary consult advised. If you have any questions please call or email. Pap smear- today laboratory evaluation -today Health Concerns Section Related Observation LastModified by Organization Detai ls LastModified Time None Recorded Concern Status LastModified by Organization Details LastModified Time None Recorded Advance Directives Directive None Recorded Payers Insurance Date Sequence Insurance Name Policy Number Policy Hughes Covered Member ID Hughes Member ID Guarantor Name 10/11/2023 2 [facility] [id number] Jude Dimaspherd [id number] Sommer Barbosa 11/21/2023 PAYMENT PLAN Sommer Barbosa 04/23/2024 1 [facility] [id number] Jude Hemant Zuniga [id number] Sommer Barbosa Notes Date Note Type Note Provider Name and Address Organization Details Recorded Time 07/11/20 23 text/htm l Generic HPI TemplateReported by Patient Abilio Velasquez MD [address], [place], [address], [facility] 07/11/2023 11:16:18 08/14/19 24 text/htm l VisitReported by Patient 33-year-old female who presents for follow-up. She is doing well. The baby is doing well. Baby is bottle feeding. Mother denies any mood concerns. She is going to wait on contraception. She is concerns about her psychiatric issues and hormonal contraception. She is bleeding very lightly. She is not had sex. Patient was instructed to call with any problems. She will follow up in 2-3 months for well-woman. Tracie leos, [facility] 08/16/2023 17:11:03 10/11/19 24 text/htm l Annual GYNReported by PatientHistoryFor history, patient reportsno gynecologic complaints.Genitourinary symptomsFor menstrual cycle, patient reportsnormal menses. For urinary symptoms, patient reportsno hematuria. For vulva, patient reportsno genital lesion. For vagina, patient reportsnormal vaginal discharge.Breast symptomsFor breast, patient reportsno breast painandno breast lump.ContraceptionFor current contraception, patient reportspartner had vasectomy.Endocrine symptomsFor sexual complaints, patient reportsno sexual complaintsandno pain during intercourse.Psychological symptomsFor psychological symptoms, patient reportsno depressionandno anxiety.Preventative measuresFor preventive measures, patient reportsencourage self breast examinationandencourage regular exercise. Abilio Velasquez MD [address], [place], [address], [facility] 10/11/2023 14:55:35 OBGyn Episode Ob Episode Information Episode Created Date Number of Fetuses Patient Bloodtype Patient rh Status Prepregnancy Weight lbs Domestic Partner Domestic Partner Phone Father Name Radio Announcer Status 01/19/20 23 1 O Positive CLOSED Fetus Data First Name Last Name Admitted to NICU Weight (g) Sex Living Outcome Pediatric Complications Fetus ID Race Codes Race Delivery Type 3628.73 6 F Full Term Vaginal Delivery Problems Problem Notes Problem Name Start Date End Date Resolution Snomed Code Not e Sciatica [id number] resolved Steven Calculation Initial Steven Date Initial Exam Date Initial Exam Provider Initial Ultrasound Date Last Menstrual Period Date Ultra Sound Weeks Gestation 07/21/2023 01/18/2023 12/20/2022 9 Eighteen To Twenty Week Steven Update Ultra Sound Date Fundal Height At Umbil Quickening Date Ultra Sound Latest Weeks Gestation Final Steven Confirmed By Final Steven Confirmed Date Final Steven Date Ultra Sound Latest Days Gestation 0 [email or web address] 01/18/2023 07/21/20 23 0 Pre- Flowsheet Flowsheet Date 01/18/2023 Minaya Score Blood Edema Fundus Height Fundus Units Glucose Ketones Leukocytes Nitrite Labor Signs Protein Cervic Dilation Cervic Effacement Cervic Station Type Weight in lbs Pre/Post Dialysis Refused Weight 197.378102218567 BP Diastolic BP Location Tested BP Systolic BP Type 71 R arm 110 sitting Fetus Heart Rate Present Fetus Movement Comments this patient is a 34 10 para 0090 at 13 weeks gestation who presents for initial was unremarkable medical, surgical, obstetric history. She has no complaints today. We talked about care in detail. We talked about vaccinations. She is vaccinated for COVID. Begin routine care. Flowsheet Date 02/13/2023 Minaya Score Blood Edema Fundus Height Fundus Units Glucose Ketones Leukocytes Nitrite Labor Signs Protein Cervic Dilation Cervic Effacement Cervic Station Type Weight in lbs Pre/Post Dialysis Refused BP Diastolic BP Location Tested BP Systolic BP Type Fetus Heart Rate Present Fetus Movement Comments Flowsheet Date 02/13/2023 Minaya Score Blood Edema Fundus Height Fundus Units Glucose Ketones Leukocytes Nitrite Labor Signs Protein Cervic Dilation Cervic Effacement Cervic Station 17 Type Weight in lbs Pre/Post Dialysis Refused Weight 197.083164317659 BP Diastolic BP Location Tested BP Systolic BP Type 75 R arm 118 sitting Fetus Heart Rate Present A 140 Fetus Movement A No Comments intestinal bloating, given r ecommendations, sciatic pain, using 10s unit, applying heat, round ligament pain. Flowsheet Date 03/06/2023 Minaya Score Blood Edema Fundus Height Fundus Units Glucose Ketones Leukocytes Nitrite Labor Signs Protein Cervic Dilation Cervic Effacement Cervic Station Type Weight in lbs Pre/Post Dialysis Refused BP Diastolic BP Location Tested BP Systolic BP Type Fetus Heart Rate Present Fetus Movement Comments Flowsheet Date 03/06/2023 Minaya Score Blood Edema Fundus Height Fundus Units Glucose Ketones Leukocytes Nitrite Labor Signs Protein Cervic Dilation Cervic Effacement Cervic Station neg none 20 none trace Type Weight in lbs Pre/Post Dialysis Refused Weight 201.646475855518 BP Diastolic BP Location Tested BP Systolic BP Type 68 106 Fetus Heart Rate Present A 145 Fetus Movement A Yes Comments completed anatomy scan today , no complaints, precautions about car travel, follow-up in 4 weeks Flowsheet Date 04/06/2023 Minaya Score Blood Edema Fundus Height Fundus Units Glucose Ketones Leukocytes Nitrite Labor Signs Protein Cervic Dilation Cervic Effacement Cervic Station 25 none trace Type Weight in lbs Pre/Post Dialysis Refused Weight 210.299796491377 BP Diastolic BP Location Tested BP Systolic BP Type 73 R arm 114 sitting Fetus Heart Rate Present A 145 Fetus Movement A Yes Comments pt. states had spotting with wiping x2days after vigorous housework. Flowsheet Date 04/20/2023 Minaya Score Blood Edema Fundus Height Fundus Units Glucose Ketones Leukocytes Nitrite Labor Signs Protein Cervic Dilation Cervic Effacement Cervic Station Type Weight in lbs Pre/Post Dialysis Refused Weight 215.686028296802 BP Diastolic BP Location Tested BP Systolic BP Type 80 134 Fetus Heart Rate Present Fetus Movement Comments Flowsheet Date 04/27/2023 Minaya Score Blood Edema Fundus Height Fundus Units Glucose Ketones Leukocytes Nitrite Labor Signs Protein Cervic Dilation Cervic Effacement Cervic Station trace none neg Type Weight in lbs Pre/Post Dialysis Refused Weight 216.566194106726 BP Diastolic BP Location Tested BP Systolic BP Type 66 105 Fetus Heart Rate Present A 140 Fetus Movement A Yes Comments Patient presents for vaginal discharge. See note. Flowsheet Date 05/04/2023 Minaya Score Blood Edema Fundus Height Fundus Units Glucose Ketones Leukocytes Nitrite Labor Signs Protein Cervic Dilation Cervic Effacement Cervic Station 28 Type Weight in lbs Pre/Post Dialysis Refused Weight 216.134029229303 BP Diastolic BP Location Tested BP Systolic BP Type 73 R arm 118 sitting Fetus Heart Rate Present A 146 Fetus Movement A Yes Comments discharge resolved. improved sciatica with new shoes Flowsheet Date 05/18/2023 Minaya Score Blood Edema Fundus Height Fundus Units Glucose Ketones Leukocytes Nitrite Labor Signs Protein Cervic Dilation Cervic Effacement Cervic Station none trace Type Weight in lbs Pre/Post Dialysis Refused Weight 220.126093048413 BP Diastolic BP Location Tested BP Systolic BP Type 69 R arm 115 sitting Fetus Heart Rate Present Fetus Movement A Yes Comments No complaints, no problems, routine care. Flowsheet Date 06/01/2023 Minaya Score Blood Edema Fundus Height Fundus Units Glucose Ketones Leukocytes Nitrite Labor Signs Protein Cervic Dilation Cervic Effacement Cervic Station 33 Type Weight in lbs Pre/Post Dialysis Refused Weight 222.76347877866 BP Diastolic BP Location Tested BP Systolic BP Type 69 R arm 113 sitting Fetus Heart Rate Present A 145 Fetus Movement A Yes Comments no complaints, no problems, routine care Flowsheet Date 06/15/2023 Minaya Score Blood Edema Fundus Height Fundus Units Glucose Ketones Leukocytes Nitrite Labor Signs Protein Cervic Dilation Cervic Effacement Cervic Station 35 Type Weight in lbs Pre/Post Dialysis Refused Weight 225.437408004280 BP Diastolic BP Location Tested BP Systolic BP Type 74 R arm 109 sitting Fetus Heart Rate Present A 134 Fetus Movement A Yes Comments no complaints, no problems, Flowsheet Date 06/26/2023 Minaya Score Blood Edema Fundus Height Fundus Units Glucose Ketones Leukocytes Nitrite Labor Signs Protein Cervic Dilation Cervic Effacement Cervic Station 1+ trace Type Weight in lbs Pre/Post Dialysis Refused Weight 225.696590558786 BP Diastolic BP Location Tested BP Systolic BP Type 77 R arm 117 sitting Fetus Heart Rate Present A 142 Fetus Movement Comments no complaints, no problems, routine care Flowsheet Date 07/03/2023 Minaya Score Blood Edema Fundus Height Fundus Units Glucose Ketones Leukocytes Nitrite Labor Signs Protein Cervic Dilation Cervic Effacement Cervic Station 2+ trace Type Weight in lbs Pre/Post Dialysis Refused Weight 224.209822611563 BP Diastolic BP Location Tested BP Systolic BP Type 72 R arm 119 sitting Fetus Heart Rate Present A 136 Fetus Movement A Yes Comments no complaints, no problems , routine care Flowsheet Date 07/04/2023 Minaya Score Blood Edema Fundus Height Fundus Units Glucose Ketones Leukocytes Nitrite Labor Signs Protein Cervic Dilation Cervic Effacement Cervic Station Type Weight in lbs Pre/Post Dialysis Refused BP Diastolic BP Location Tested BP Systolic BP Type Fetus Heart Rate Present Fetus Movement Comments Flowsheet Date 07/06/2023 Minaya Score Blood Edema Fundus Height Fundus Units Glucose Ketones Leukocytes Nitrite Labor Signs Protein Cervic Dilation Cervic Effacement Cervic Station Type Weight in lbs Pre/Post Dialysis Refused BP Diastolic BP Location Tested BP Systolic BP Type 78 122 Fetus Heart Rate Present Fetus Movement Comments Flowsheet Date 07/11/2023 Minaya Score Blood Edema Fundus Height Fundus Units Glucose Ketones Leukocytes Nitrite Labor Signs Protein Cervic Dilation Cervic Effacement Cervic Station none trace Type Weight in lbs Pre/Post Dialysis Refused Weight 227.011282288868 BP Diastolic BP Location Tested BP Systolic BP Type 78 R arm 121 sitting Fetus Heart Rate Present Fetus Movement Comments Flowsheet Date 07/11/2023 Minaya Score Blood Edema Fundus Height Fundus Units Glucose Ketones Leukocytes Nitrite Labor Signs Protein Cervic Dilation Cervic Effacement Cervic Station Type Weight in lbs Pre/Post Dialysis Refused BP Diastolic BP Location Tested BP Systolic BP Type Fetus Heart Rate Present Fetus Movement Comments Flowsheet Date 07/11/2023 Minaya Score Blood Edema Fundus Height Fundus Units Glucose Ketones Leukocytes Nitrite Labor Signs Protein Cervic Dilation Cervic Effacement Cervic Station 38 1cm 80% -1 Type Weight in lbs Pre/Post Dialysis Refused BP Diastolic BP Location Tested BP Systolic BP Type Fetus Heart Rate Present A 145 Fetus Movement Comments Severe chest wall pain, to i nduce on Monday, testing pending, borderline oligo. Flowsheet Date 07/11/2023 Minaya Score Blood Edema Fundus Height Fundus Units Glucose Ketones Leukocytes Nitrite Labor Signs Protein Cervic Dilation Cervic Effacement Cervic Station Type Weight in lbs Pre/Post Dialysis Refused BP Diastolic BP Location Tested BP Systolic BP Type Fetus Heart Rate Present Fetus Movement Comments Menstrual History Last Menstrual Date Menses Monthly On Bcp Conception Prior Menses Frequency Hcg Plus Date Menarche Onset Age Genetic Screening And Infection History Question Response Note Mental Retardation/Autism false Patient's Age Will Be 35 Years Or Older At Estim ated Date of Delivery false Thalassemia (East Timorese, Lithuanian, Mediterranean, Or Background): MCV < 80 false Neural Tube Defect (Meningomyelocele, Spina Bifi da, Or Anencephaly) false Congenital Heart Defect false Down Syndrome false Ld-Sachs (eg, Baptist, Cajun, Panamanian-[place]) f alse Oracio Disease false Sickle Cell Disease Or Trait () false Hemophilia Or Other Blood Disorders false Muscular Dystrophy false Cystic Fibrosis false Oneida's Chorea false Intellectual Disability/Autism false If Yes, Was Person Tested For Fragile X? false Other Inherited Genetic Or Chromosomal Disorder false Maternal Metabolic Disorder (eg, Type 1 Diabetes , PKU) false Patient Or Baby's Father Had A Child With Defects Not Listed Above false Recurrent Loss, Or A Stillbirth false Medications (including Suppl ements, Vitamins, Herbs, OTC Drugs), Illicit/Recreational Drugs, Alcohol false If Yes, Agent(s) And Strength/Dosage false Any Other Genetic History false Live With Someone With TB Or Exposed To TB false Patient Or Partner Has History Of Genital Herpes false Rash Or Viral Illness Since Last Menstrual Perio d false History Of STD, Gonorrhea, Chlamydia, HPV, Syphi lis false Other Infection History false History of HIV false History of Hepatitis false Prior GBS-infected child false Hemoglobinopathy Or Carrier false Other Structural Defect false Recent Travel History Outside of Country false Delivery Information Delivery Date Delivery Type Labor Anesthesia Weeks Gestation Incision Type Labor Labor Length Hrs Delivered By Post Complications Tubal Sterilization Discharge Date Comments [facility] idural 38.6 false Abilio Velasquez MD Discharge Information Feeding Method Contraceptive Method Maternal HG B and HCT Levels Ob Episode Information Episode Created Date Number of Fetuses Patient Bloodtype Patient rh Status Prepregnancy Weight lbs Domestic Partner Domestic Partner Phone Father Name Radio Announcer Status 01/19/20 23 1 CLOSED Fetus Data First Name Last Name Admitted to NICU Weight (g) Sex Living Outcome Pediatric Complications Fetus ID Race Codes Race Delivery Type , Induced Steven Calculation Initial Steven Date Initial Exam Date Initial Exam Provider Initial Ultrasound Date Last Menstrual Period Date Ultra Sound Weeks Gestation 0 Eighteen To Twenty Week Steven Update Ultra Sound Date Fundal Height At Umbil Quickening Date Ultra Sound Latest Weeks Gestation Final Steven Confirmed By Final Steven Confirmed Date Final Steven Date Ultra Sound Latest Days Gestation 0 0 Menstrual History Last Menstrual Date Menses Monthly On Bcp Conception Prior Menses Frequency Hcg Plus Date Menarche Onset Age Delivery Information Delivery Date Delivery Type Labor Anesthesia Weeks Gestation Incision Type Labor Labor Length Hrs Delivered By Post Complications Tubal Sterilization Discharge Date Comments 8 Discharge Information Feeding Method Contraceptive Method Maternal HG B and HCT Levels"
--- OUTSIDE RECORDS SUMMARY | 2025-05-09 11:34 | XMS_ITS | Patient Health Record ---
Author Organization [facility] [employer] [facility] Address [address] [place] [address] Care Team Providers Care Vocational Psychologist Name Role Phone Autumn Aguirre Primary Care Provider Jesi Porter Unavailable [phone] Eleanor Whelan Unavailable [phone] Allergies Allergen (clinical drug ingredient) Drug/Non Drug Allergy documented on EMR Reaction Allergy Type Onset Date Status ethinyl estradiol / norgestimate Tri-Sprintec Unknown Drug Allergy 12/07/2023 Active Reason For Referral No Information Medications Medication SIG (Take, Route, Frequency, Duration) Notes Start Date End Date Status ARIPiprazole 10 MG Tablet 1 tablet Oral at bedtime; Duration: 90 days 04/11/2025 Active Sertraline HCl 100 MG Tablet 1 tablet Oral Once a day; Duration: 90 days 04/11/2025 Active Sertraline HCl 50 MG Tablet 1 tablet Orally Once a day; Duration: 90 days total 150 mg daily 04/11/2025 Active hydrOXYzine HCl 25 MG Tablet 1 tablet Orally three times a day; Duration: 90 days 04/11/2025 Active Atomoxetine HCl 40 MG Capsule 1 capsule in the morning Orally Once a day; Duration: 90 days Active ARIPiprazole 10 MG Tablet 1 tablet Oral at bedtime; Duration: 30 days appointment needed Active Sertraline HCl 50 MG Tablet TAKE 1 TABLET BY MOUTH ONCE DAILY . APPOINTMENT REQUIRED FOR FUTURE REFILLS; Duration: 30 Active Immunizations Vaccine Route Administration Date Status Comme nts Influenza virus vaccine, quadrivalent (IIV4), split virus, 0.25 mL dosage Unknown 05/27/2019 Administered Influenza, injectable, MDCK, preservative free Unknown 05/27/2019 Administered Influenza, quadrivalent, split virus Unknown 05/27/2019 Administered Source VFC Code: V00 - VFC eligibility not determined/unknown Biju Covid-19 Vaccine Unknown 05/23/2022 Administered Tdap Unknown 12/05/2018 Administered Tdap Unknown 01/30/2019 Administered Social History Tobacco Use: Social History Observation Description Date Details (start date - stop date) Never Smoker NA - NA Sex Assigned At : Social History Observation Description Sex Assigned At Female Social History Miscellaneous: Social Info Question Answer Notes Advance Care Planning Are you your own decision-maker No Do you have Power of Investment Director for Health or [facility]? No Tobacco Use: Social Info Question Answer Notes Tobacco Control (Standard) Tobacco use: Nonsmoker Additional Details Category Social Info Options Details Migrated Social History Migrated Social History Alcohol Intake: Occasional 10/09/2023,Tobacco Years: Never smoker 06/09/2020,Smoking Status: 0 09/07/2023, Alcohol Intake: Occasional 10/09/2023,Tobacco Years: Never smoker 06/09/2020,Smoking Status: 0 09/07/2023 Drug/Alcohol: Do you smoke marijuana? Adm its, very rare, Admits, very rare Do you drink alcohol? Socially, Socially Section Notes: Reviewed Social History Substance UseDo you or have you ever smoked tobacco?: Never smokerHow many years have you smoked tobacco?: 0How much tobacco do you smoke?: NoneDo you or have you ever used any other forms of tobacco or nicotine?: NoDo you or have you ever used e-cigarettes or vape?: Never used electronic cigarettesDo you or have you ever used smokeless tobacco?: Never used smokeless tobaccoHow much tobacco do you chew?: noneWhat was the date of your most recent tobacco screening?: 12/07/2023Has tobacco cessation counseling been provided?: NoWhat is your level of alcohol consumption?: OccasionalHow many years have you consumed alcohol?: 12Have you ever been counseled for unhealthy alcohol use?: NoIf you are , what was your level of alcohol consumption prior to ?: NoneDo you use any illicit or recreational drugs?: NoWhich illicit or recreational drugs have you used?: cannabis but stoppedHow many years have you used illicit or recreational drugs?: 0Have you used IV drugs?: NoWhat is your level of caffeine consumption?: ModerateEducation and OccupationWhat is the highest grade or level of school you have completed or the highest degree you have received?: Bachelor's degree (e.g., BA, AB, BS)Are you currently in school?: NoAre you currently employed?: YesWho is your employer?: [employer]Marriage and SexualityWhat is your relationship status?: MarriedAre you sexually active?: YesDo you use protection during sex?: UsuallyHow many children do you have?: 3Home and EnvironmentAre you a caregiver?: NoDo you have any siblings?: 4Do you have any pets?: YesDo you have smoke and carbon monoxide detectors in your home?: YesAre you passively exposed to smoke?: NoAre there any smokers in your house?: NoAre there any guns present in your home?: YesDiet and ExerciseWhat type of diet are you following?: RegularWhat is your exercise level?: NoneHow many days of moderate to strenuous exercise, like a brisk walk, did you do in the last 7 days?: 0LifestyleDo you feel stressed (tense, restless, nervous, or anxious, or unable to sleep at night)?: Only a littleDo you use your seat belt or car seat routinely?: YesAdvance DirectiveDo you have an advance directive?: NoWhat is your code status?: Full CodeDo you have a medical power of toucher up?: NoPublic Health and TravelHave you been to an area known to be high risk for COVID-19?: NoIn the 14 days before symptom onset, have you had close contact with a laboratory-confirmed COVID-19 while that case was ill?: NoIn the 14 days before symptom onset, have you had close contact with a person who is under investigation for COVID-19 while that person was ill?: NoDo you reside in or have you traveled to an area where Ebola virus transmission is active?: NoActivities of Daily LivingAre you able to care for yourself?: YesAre you blind or do you have difficulty seeing?: NoAre you deaf or do you have serious difficulty hearing? : NoDo you have difficulty concentrating, remembering or making decisions?: NoDo you have difficulty walking or climbing stairs?: NoDo you have difficulty dressing or bathing?: NoDo you have difficulty doing errands alone?: NoAre you able to walk?: Yes: walks without restrictionsOtherAccident Related Injury: NoAuto related injury?: NoDrugs Abused: noneEducation: 4 Year CollegeFamily history of heart disease?: NoHow many days in the past year have you had a heavy drinking consumption (4+ female, 5+ male)?: 0High blood pressure: NoHigh Cholesterol: NoHigh number of sexual partners: NoHistory of inconsistent/no condom use: NoHIV Risk factors: NoIllicit drugs pre-: noneMarital status: MarriedPast steroid/HgH use?: NoGender Identity and LGBTQ IdentityGender identity: Identifies as FemaleAssigned sex at : FemaleSexual orientation: Straight or heterosexual Reviewed Social History Substance UseDo you or have you ever smoked tobacco?: Never smokerHow many years have you smoked tobacco?: 0How much tobacco do you smoke?: NoneDo you or have you ever used any other forms of tobacco or nicotine?: NoDo you or have you ever used e-cigarettes or vape?: Never used electronic cigarettesDo you or have you ever used smokeless tobacco?: Never used smokeless tobaccoHow much tobacco do you chew?: noneWhat was the date of your most recent tobacco screening?: 12/07/2023Has tobacco cessation counseling been provided?: NoWhat is your level of alcohol consumption?: OccasionalHow many years have you consumed alcohol?: 12Have you ever been counseled for unhealthy alcohol use?: NoIf you are , what was your level of alcohol consumption prior to ?: NoneDo you use any illicit or recreational drugs?: NoWhich illicit or recreational drugs have you used?: cannabis but stoppedHow many years have you used illicit or recreational drugs?: 0Have you used IV drugs?: NoWhat is your level of caffeine consumption?: ModerateEducation and OccupationWhat is the highest grade or level of school you have completed or the highest degree you have received?: Bachelor's degree (e.g., BA, AB, BS)Are you currently in school?: NoAre you currently employed?: YesWho is your employer?: [employer]Marriage and SexualityWhat is your relationship status?: MarriedAre you sexually active?: YesDo you use protection during sex?: UsuallyHow many children do you have?: 3Home and EnvironmentAre you a caregiver?: NoDo you have any siblings?: 4Do you have any pets?: YesDo you have smoke and carbon monoxide detectors in your home?: YesAre you passively exposed to smoke?: NoAre there any smokers in your house?: NoAre there any guns present in your home?: YesDiet and ExerciseWhat type of diet are you following?: RegularWhat is your exercise level?: NoneHow many days of moderate to strenuous exercise, like a brisk walk, did you do in the last 7 days?: 0LifestyleDo you feel stressed (tense, restless, nervous, or anxious, or unable to sleep at night)?: Only a littleDo you use your seat belt or car seat routinely?: YesAdvance DirectiveDo you have an advance directive?: NoWhat is your code status?: Full CodeDo you have a medical power of toucher up?: NoPublic Health and TravelHave you been to an area known to be high risk for COVID-19?: NoIn the 14 days before symptom onset, have you had close contact with a laboratory-confirmed COVID-19 while that case was ill?: NoIn the 14 days before symptom onset, have you had close contact with a person who is under investigation for COVID-19 while that person was ill?: NoDo you reside in or have you traveled to an area where Ebola virus transmission is active?: NoActivities of Daily LivingAre you able to care for yourself?: YesAre you blind or do you have difficulty seeing?: NoAre you deaf or do you have serious difficulty hearing? : NoDo you have difficulty concentrating, remembering or making decisions?: NoDo you have difficulty walking or climbing stairs?: NoDo you have difficulty dressing or bathing?: NoDo you have difficulty doing errands alone?: NoAre you able to walk?: Yes: walks without restrictionsOtherAccident Related Injury: NoAuto related injury?: NoDrugs Abused: noneEducation: 4 Year CollegeFamily history of heart disease?: NoHow many days in the past year have you had a heavy drinking consumption (4+ female, 5+ male)?: 0High blood pressure: NoHigh Cholesterol: NoHigh number of sexual partners: NoHistory of inconsistent/no condom use: NoHIV Risk factors: NoIllicit drugs pre-: noneMarital status: MarriedPast steroid/HgH use?: NoGender Identity and LGBTQ IdentityGender identity: Identifies as FemaleAssigned sex at : FemaleSexual orientation: Straight or heterosexual Reviewed Social History Substance UseDo you or have you ever smoked tobacco?: Never smokerHow many years have you smoked tobacco?: 0How much tobacco do you smoke?: NoneDo you or have you ever used any other forms of tobacco or nicotine?: NoDo you or have you ever used e-cigarettes or vape?: Never used electronic cigarettesDo you or have you ever used smokeless tobacco?: Never used smokeless tobaccoHow much tobacco do you chew?: noneWhat was the date of your most recent tobacco screening?: 12/07/2023Has tobacco cessation counseling been provided?: NoWhat is your level of alcohol consumption?: OccasionalHow many years have you consumed alcohol?: 12Have you ever been counseled for unhealthy alcohol use?: NoIf you are , what was your level of alcohol consumption prior to ?: NoneDo you use any illicit or recreational drugs?: NoWhich illicit or recreational drugs have you used?: cannabis but stoppedHow many years have you used illicit or recreational drugs?: 0Have you used IV drugs?: NoWhat is your level of caffeine consumption?: ModerateEducation and OccupationWhat is the highest grade or level of school you have completed or the highest degree you have received?: Bachelor's degree (e.g., BA, AB, BS)Are you currently in school?: NoAre you currently employed?: YesWho is your employer?: [employer]Marriage and SexualityWhat is your relationship status?: MarriedAre you sexually active?: YesDo you use protection during sex?: UsuallyHow many children do you have?: 3Home and EnvironmentAre you a caregiver?: NoDo you have any siblings?: 4Do you have any pets?: YesDo you have smoke and carbon monoxide detectors in your home?: YesAre you passively exposed to smoke?: NoAre there any smokers in your house?: NoAre there any guns present in your home?: YesDiet and ExerciseWhat type of diet are you following?: RegularWhat is your exercise level?: NoneHow many days of moderate to strenuous exercise, like a brisk walk, did you do in the last 7 days?: 0LifestyleDo you feel stressed (tense, restless, nervous, or anxious, or unable to sleep at night)?: Only a littleDo you use your seat belt or car seat routinely?: YesAdvance DirectiveDo you have an advance directive?: NoWhat is your code status?: Full CodeDo you have a medical power of toucher up?: NoPublic Health and TravelHave you been to an area known to be high risk for COVID-19?: NoIn the 14 days before symptom onset, have you had close contact with a laboratory-confirmed COVID-19 while that case was ill?: NoIn the 14 days before symptom onset, have you had close contact with a person who is under investigation for COVID-19 while that person was ill?: NoDo you reside in or have you traveled to an area where Ebola virus transmission is active?: NoActivities of Daily LivingAre you able to care for yourself?: YesAre you blind or do you have difficulty seeing?: NoAre you deaf or do you have serious difficulty hearing? : NoDo you have difficulty concentrating, remembering or making decisions?: NoDo you have difficulty walking or climbing stairs?: NoDo you have difficulty dressing or bathing?: NoDo you have difficulty doing errands alone?: NoAre you able to walk?: Yes: walks without restrictionsOtherAccident Related Injury: NoAuto related injury?: NoDrugs Abused: noneEducation: 4 Year CollegeFamily history of heart disease?: NoHow many days in the past year have you had a heavy drinking consumption (4+ female, 5+ male)?: 0High blood pressure: NoHigh Cholesterol: NoHigh number of sexual partners: NoHistory of inconsistent/no condom use: NoHIV Risk factors: NoIllicit drugs pre-: noneMarital status: MarriedPast steroid/HgH use?: NoGender Identity and LGBTQ IdentityGender identity: Identifies as FemaleAssigned sex at : FemaleSexual orientation: Straight or heterosexual Reviewed Social History Substance UseDo you or have you ever smoked tobacco?: Never smokerHow many years have you smoked tobacco?: 0How much tobacco do you smoke?: NoneDo you or have you ever used any other forms of tobacco or nicotine?: NoDo you or have you ever used e-cigarettes or vape?: Never used electronic cigarettesDo you or have you ever used smokeless tobacco?: Never used smokeless tobaccoHow much tobacco do you chew?: noneWhat was the date of your most recent tobacco screening?: 12/07/2023Has tobacco cessation counseling been provided?: NoWhat is your level of alcohol consumption?: OccasionalHow many years have you consumed alcohol?: 12Have you ever been counseled for unhealthy alcohol use?: NoIf you are , what was your level of alcohol consumption prior to ?: NoneDo you use any illicit or recreational drugs?: NoWhich illicit or recreational drugs have you used?: cannabis but stoppedHow many years have you used illicit or recreational drugs?: 0Have you used IV drugs?: NoWhat is your level of caffeine consumption?: ModerateEducation and OccupationWhat is the highest grade or level of school you have completed or the highest degree you have received?: Bachelor's degree (e.g., BA, AB, BS)Are you currently in school?: NoAre you currently employed?: YesWho is your employer?: [employer]Marriage and SexualityWhat is your relationship status?: MarriedAre you sexually active?: YesDo you use protection during sex?: UsuallyHow many children do you have?: 3Home and EnvironmentAre you a caregiver?: NoDo you have any siblings?: 4Do you have any pets?: YesDo you have smoke and carbon monoxide detectors in your home?: YesAre you passively exposed to smoke?: NoAre there any smokers in your house?: NoAre there any guns present in your home?: YesDiet and ExerciseWhat type of diet are you following?: RegularWhat is your exercise level?: NoneHow many days of moderate to strenuous exercise, like a brisk walk, did you do in the last 7 days?: 0LifestyleDo you feel stressed (tense, restless, nervous, or anxious, or unable to sleep at night)?: Only a littleDo you use your seat belt or car seat routinely?: YesAdvance DirectiveDo you have an advance directive?: NoWhat is your code status?: Full CodeDo you have a medical power of toucher up?: NoPublic Health and TravelHave you been to an area known to be high risk for COVID-19?: NoIn the 14 days before symptom onset, have you had close contact with a laboratory-confirmed COVID-19 while that case was ill?: NoIn the 14 days before symptom onset, have you had close contact with a person who is under investigation for COVID-19 while that person was ill?: NoDo you reside in or have you traveled to an area where Ebola virus transmission is active?: NoActivities of Daily LivingAre you able to care for yourself?: YesAre you blind or do you have difficulty seeing?: NoAre you deaf or do you have serious difficulty hearing? : NoDo you have difficulty concentrating, remembering or making decisions?: NoDo you have difficulty walking or climbing stairs?: NoDo you have difficulty dressing or bathing?: NoDo you have difficulty doing errands alone?: NoAre you able to walk?: Yes: walks without restrictionsOtherAccident Related Injury: NoAuto related injury?: NoDrugs Abused: noneEducation: 4 Year CollegeFamily history of heart disease?: NoHow many days in the past year have you had a heavy drinking consumption (4+ female, 5+ male)?: 0High blood pressure: NoHigh Cholesterol: NoHigh number of sexual partners: NoHistory of inconsistent/no condom use: NoHIV Risk factors: NoIllicit drugs pre-: noneMarital status: MarriedPast steroid/HgH use?: NoGender Identity and LGBTQ IdentityGender identity: Identifies as FemaleAssigned sex at : FemaleSexual orientation: Straight or heterosexual Problems Problem Type SNOMED Code ICD Code Onset Dates Problem Status W/U Status Risk Notes Problem Psychotic disorder (09867439) 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) 10/09/19 24 Active confirmed Problem Mild recurrent major depression (72914970) Major depressive disorder, recurrent, mild (F33.0) 12/07/19 24 Active confirmed Problem Generalized anxiety disorder (81465514) Generalized anxiety disorder (F41.1) 12/07/19 24 Active confirmed Problem Posttraumatic stress disorder (37000655) Post-traumatic stress disorder, chronic (F43.12) 12/07/19 Active confirmed Problem Attention deficit hyperactivity disorder, 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, predominantly inattentive type (F90.0) 12/07/19 Active confirmed Problem Long-term current use of drug therapy (189589140) Other exterminator termite (current) drug therapy (Z79.899) 12/07/19 24 Active confirmed Problem Moderate recurrent major depression (39940648) MDD (major depressive disorder), recurrent episode, moderate (F33.1) Active confirmed Problem Mild recurrent major depression (91489079) MDD (major depressive disorder), recurrent episode, mild (F33.0) Active confirmed Problem Severe major depression, single episode, without psychotic features (36559128) MDD (major depressive disorder), severe (F32.2) Active confirmed Problem depression (23223701) Post depression (F53.0) Active confirmed Vital Signs Heart Rate 85 /min 04/11/2025 Respiratory Rate 18 /min 04/11/2025 Blood pressure diastolic 73 mm Hg 04/11/2025 Height-cm 162.56 cm 04/11/2025 Weight-kg 95.71 kg 04/11/2025 Height 64.00 in 04/11/2025 Blood pressure systolic 127 mm Hg 04/11/2025 Weight 211 lbs 04/11/2025 BMI 36.21 kg/m2 04/11/2025 Encounters Encounter Location Date Provider Diagnosis [facility] [employer] [address] [facility] [address] [place] [address] 05/13/2024 Eleanor Whelan Attention-deficit hyperactivity disorder, predominantly inattentive type F90.0 ; Post-traumatic stress disorder, chronic F43.12 and Post depression F53.0 [facility] [employer] [address] [place] [address] 05/13/2024 Jesi Dao Generalized anxiety disorder F41.1 ; MDD (major depressive disorder), recurrent episode, moderate F33.1 ; Attention-deficit hyperactivity disorder, predominantly inattentive type F90.0 ; Post-traumatic stress disorder, chronic F43.12 ; 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 and Post depression F53.0 [facility] [address] [place] [address] 05/20/2024 Eleanor Hemann Attention-deficit hyperactivity disorder, predominantly inattentive type F90.0 ; Post-traumatic stress disorder, chronic F43.12 and Post depression F53.0 [facility] [address] [place] [address] 05/20/2024 Jesi Dao Generalized anxiety disorder F41.1 ; MDD (major depressive disorder), recurrent episode, moderate F33.1 ; Attention-deficit hyperactivity disorder, predominantly inattentive type F90.0 ; Post-traumatic stress disorder, chronic F43.12 ; Other skilled nursing (current) drug therapy Z79.899 and Post depression F53.0 [facility] [address] [place] [address] 05/27/2024 Eleanor Hemann Post-traumatic stres s disorder, chronic F43.12 ; Attention-deficit hyperactivity disorder, predominantly inattentive type F90.0 and MDD (major depressive disorder), severe F32.2 [facility] [address] [place] [address] 05/27/2024 Jesi Dao Generalized anxiety disorder F41.1 ; MDD (major depressive disorder), recurrent episode, mild F33.0 ; Attention-deficit hyperactivity disorder, predominantly inattentive type F90.0 ; Post-traumatic stress disorder, chronic F43.12 ; 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 and Post depression F53.0 [facility] [address] [place] [address] 06/07/2024 Eleanor Hemann Post-traumatic stres s disorder, chronic F43.12 ; Attention-deficit hyperactivity disorder, predominantly inattentive type F90.0 and MDD (major depressive disorder), severe F32.2 [facility] [address] [place] [address] 06/07/2024 Jesi Dao Generalized anxiety disorder F41.1 ; Attention-deficit hyperactivity disorder, predominantly inattentive type F90.0 ; MDD (major depressive disorder), recurrent episode, mild F33.0 ; Post-traumatic stress disorder, chronic F43.12 ; Other skilled nursing (current) drug therapy Z79.899 and Post depression F53.0 [facility] [address] [facility] [address] [place] [address] 06/10/2024 Eleanor Hemann Post-traumatic stres s disorder, chronic F43.12 ; Attention-deficit hyperactivity disorder, predominantly inattentive type F90.0 ; Post depression F53.0 and Generalized anxiety disorder F41.1 [place] [address] [facility] [address] [place] [address] 06/10/2024 Jesi Therjohann Generalized anxiety disorder F41.1 ; Attention-deficit hyperactivity disorder, predominantly inattentive type F90.0 ; MDD (major depressive disorder), recurrent episode, mild F33.0 ; Post-traumatic stress disorder, chronic F43.12 ; 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 and Post depression F53.0 [place] [address] [address] 06/21/2024 Eleanor Hemann Post-traumatic stres s disorder, chronic F43.12 ; Attention-deficit hyperactivity disorder, predominantly inattentive type F90.0 ; Post depression F53.0 and Generalized anxiety disorder F41.1 [facility] [place] [id number] [address] 06/21/2024 Jesi Therjohann Generalized anxiety disorder F41.1 ; Attention-deficit hyperactivity disorder, predominantly inattentive type F90.0 ; MDD (major depressive disorder), recurrent episode, mild F33.0 ; Post-traumatic stress disorder, chronic F43.12 ; 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 and Post depression F53.0 [facility] [address] [address] 06/28/2024 Eleanor Hemann Post-traumatic stres s disorder, chronic F43.12 ; Attention-deficit hyperactivity disorder, predominantly inattentive type F90.0 ; Post depression F53.0 and Generalized anxiety disorder F41.1 [place] [address] [address] 07/09/2024 Eleanor Hemann Post-traumatic stres s disorder, chronic F43.12 ; Attention-deficit hyperactivity disorder, predominantly inattentive type F90.0 ; Post depression F53.0 and Generalized anxiety disorder F41.1 [facility] [address] [place] [address] 07/09/2024 Jesi Therjohann Generalized anxiety disorder F41.1 ; Attention-deficit hyperactivity disorder, predominantly inattentive type F90.0 ; MDD (major depressive disorder), recurrent episode, mild F33.0 ; Post-traumatic stress disorder, chronic F43.12 ; Other skilled nursing (current) drug therapy Z79.899 and Post depression F53.0 [place] [id number] [facility] [address] [place] [address] 07/16/2024 Jesi Therjohann Generalized anxiety disorder F41.1 ; Attention-deficit hyperactivity disorder, predominantly inattentive type F90.0 ; MDD (major depressive disorder), recurrent episode, mild F33.0 ; Post-traumatic stress disorder, chronic F43.12 ; 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 and Post depression F53.0 [facility] [address] [address] 07/18/2024 Eleanor Hemann Post-traumatic stres s disorder, chronic F43.12 ; Attention-deficit hyperactivity disorder, predominantly inattentive type F90.0 ; Post depression F53.0 and Generalized anxiety disorder F41.1 [facility] [address] [address] 07/29/2024 Jesi Therjohann Generalized anxiety disorder F41.1 ; Attention-deficit hyperactivity disorder, predominantly inattentive type F90.0 ; MDD (major depressive disorder), recurrent episode, mild F33.0 ; Post-traumatic stress disorder, chronic F43.12 ; Other skilled nursing (current) drug therapy Z79.899 and Post depression F53.0 [facility] [address] [place] [address] 08/05/2024 Jesi Therjohann Generalized anxiety disorder F41.1 ; Attention-deficit hyperactivity disorder, predominantly inattentive type F90.0 ; MDD (major depressive disorder), recurrent episode, mild F33.0 ; Post-traumatic stress disorder, chronic F43.12 ; Other skilled nursing (current) drug therapy Z79.899 and Post depression F53.0 [facility] [address] [place] [address] 08/08/2024 Eleanor Hemann Post-traumatic stres s disorder, chronic F43.12 ; Attention-deficit hyperactivity disorder, predominantly inattentive type F90.0 ; Post depression F53.0 and Generalized anxiety disorder F41.1 [facility] [address] [place] [address] 08/15/2024 Eleanor Hemann Post-traumatic stres s disorder, chronic F43.12 ; Attention-deficit hyperactivity disorder, predominantly inattentive type F90.0 ; Post depression F53.0 and Generalized anxiety disorder F41.1 [facility] [address] [place] [address] 08/19/2024 Jesi Dao Generalized anxiety disorder F41.1 ; Attention-deficit hyperactivity disorder, predominantly inattentive type F90.0 ; MDD (major depressive disorder), recurrent episode, mild F33.0 ; Post-traumatic stress disorder, chronic F43.12 ; Other skilled nursing (current) drug therapy Z79.899 and Post depression F53.0 [facility] [address] [address] 08/22/2024 Eleanor Hemann Post-traumatic stres s disorder, chronic F43.12 ; Attention-deficit hyperactivity disorder, predominantly inattentive type F90.0 ; Post depression F53.0 and Generalized anxiety disorder F41.1 [facility] [address] [place] [address] 08/26/2024 Jesi Dao Generalized anxiety disorder F41.1 ; Attention-deficit hyperactivity disorder, predominantly inattentive type F90.0 ; MDD (major depressive disorder), recurrent episode, mild F33.0 ; Post-traumatic stress disorder, chronic F43.12 ; Other skilled nursing (current) drug therapy Z79.899 and Post depression F53.0 [place] [address] [place] [address] 08/29/2024 Eleanor Hemann Post-traumatic stres s disorder, chronic F43.12 ; Attention-deficit hyperactivity disorder, predominantly inattentive type F90.0 ; Post depression F53.0 and Generalized anxiety disorder F41.1 [facility] [address] [facility] [address] [place] [address] 09/02/2024 Jesi Dao Generalized anxiety disorder F41.1 ; Attention-deficit hyperactivity disorder, predominantly inattentive type F90.0 ; MDD (major depressive disorder), recurrent episode, mild F33.0 ; Post-traumatic stress disorder, chronic F43.12 ; Other skilled nursing (current) drug therapy Z79.899 and Post depression F53.0 [facility], [facility] [address] [facility] [address] [place] [address] 09/05/2024 Eleanor Hemann Post-traumatic stres s disorder, chronic F43.12 ; Attention-deficit hyperactivity disorder, predominantly inattentive type F90.0 ; Post depression F53.0 and Generalized anxiety disorder F41.1 [facility] [address] [facility] [address] [place] [address] 10/03/2024 Eleanor Hemann Post-traumatic stres s disorder, chronic F43.12 ; Attention-deficit hyperactivity disorder, predominantly inattentive type F90.0 ; Post depression F53.0 and Generalized anxiety disorder F41.1 [facility] [address] [address] 04/11/2025 Jesi Dao Generalized anxiety disorder F41.1 ; Attention-deficit hyperactivity disorder, predominantly inattentive type F90.0 ; MDD (major depressive disorder), recurrent episode, mild F33.0 ; Post-traumatic stress disorder, chronic F43.12 ; 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 and Post depression F53.0 [facility], [facility] [address] [facility] [address] [place] [address] 07/17/2024 Jesi Dao [facility], [facility] [address] [address] 09/05/2024 Jesi Dao [facility], [place] [address] [place] [address] 04/04/2025 Jesi Dao Attention-deficit hyperactivity disorder, predominantly inattentive type F90.0 [facility] [address] [place] [address] 08/29/2024 Jesi Dao Assessments Encounter Date Diagnosis (ICD Code) Assessment Notes Treatment Notes Treatment Clinical Notes Section Notes 06/07/2024 Post-traumatic stress disorder, chronic (ICD-10 - F43.12) 06/07/2024 Attention-defic it hyperactivity disorder, predominantly inattentive type (ICD-10 - F90.0) 06/07/2024 Generalized anxiety disorder (ICD-10 - F41.1) Learning About Generalized Anxiety Disorder material was published, Generalized Anxiety Disorder: Care Instructions material was published, Learning About Generalized Anxiety Disorder material was published, Generalized Anxiety Disorder: Care Instructions material was published, Learning About Anxiety Disorders material was published rx all sent 90 days 05/13/24 major depression- DCFS 04/17/24 removal of children and returned 05/27/24 depression Abilify 10 mg at night for depression Sertraline 150 mg at bedtime for depression and anxiety disucss and educated on IOP program discuss [facility], [facility], [facility], [facility]- patient will check into IOP programs continue therapy will see weekly r/t post- educated on all medications, benefits, side effects and risk, and educated on depression, anxiety, and ADHD, mood d/o and educated on compliance of medications, appointment's, continue therapy discussion with patient about course of treatment and patient instructions. 2. Generalized anxiety disorder - Sertraline 150 mg daily Vistaril 25 mg three times a day as needed for anxiety and panic Medication Management and Follow-Up- Plan:- Schedule follow-up appointments every 2-3 months to monitor the patient's response to the medication regimen.- Reinforce the importance of avoiding recreational drug use due to potential neurotoxicity and interactions with prescribed medications. THERAPY WEEKLY 3. Chronic post-traumatic stress disorder -therapy 4. Attention deficit hyperactivity disorder, predominantly inattentive type - ADHD testing reviewed JANA-2 possible dxn, no age in childhood dxn per patient issues with test, stresses in home noted, treated computer test like video game no rx for ADHD prescribed r/t cannabis- REPORTED USE OCCASIONAL will work on concentration and focus in therapy discuss Straterra - educated on rx - Straterra 40 mg daily in am no control substance prescribed r/t cannabis use educated on decrease cannabis and risk cannabis and medications http_s://www.nimh.n .gov/health/topic s/zverri-urmvmr-ter ications http_s://www.[facility].o rg/Wrrkh-Tapyau-Qfv ness/Treatments/Men sjv-Uzvdvz-Juqvywqy ons http_s://www.[facility].o rg/Ymxss-Vurcvh-Vtm ness/Mental-Health- Conditions http_s://[employer]/depression/t yu-yvagmuzex-brepvl xu-zx-ypytdbaoju#tr eatments http__s://www.nimh. nih.gov/health/topi cs/mlipfo-ztikcl-hb dications http__s://www.[facility]. org/Tjgth-Upwqmw-Zy lness/Treatments/Me rera-Edilzx-Lejiowb ions Recommend decrease/stop cannabis use as it may be negatively impacting mood, motivation, anxiety, sleep, focus; can also contribute to development of psychosis Patient educated on all medications including potential benefits, side effects, risks. Educated on proper dosing schedule and importance of compliance 5. Long-term drug therapy 06/21/2024 Post-traumatic stress disorder, chronic (ICD-10 - F43.12) 06/21/2024 Attention-defic it hyperactivity disorder, predominantly inattentive type (ICD-10 - F90.0) 06/21/2024 Generalized anxiety disorder (ICD-10 - F41.1) Learning About Generalized Anxiety Disorder material was published, Generalized Anxiety Disorder: Care Instructions material was published, Learning About Generalized Anxiety Disorder material was published, Generalized Anxiety Disorder: Care Instructions material was published, Learning About Anxiety Disorders material was published rx all sent 90 days 05/13/24 continue therapy major depression- improved, stable DCFS 04/17/24 removal of children and returned 05/27/24 depression Abilify 10 mg at night for depression Sertraline 150 mg at bedtime for depression and anxiety disucss and educated on IOP program discuss [facility], [facility], [facility], [facility]- patient will check into IOP programs continue therapy will see weekly r/t post- educated on all medications, benefits, side effects and risk, and educated on depression, anxiety, and ADHD, mood d/o and educated on compliance of medications, appointment's, continue therapy discussion with patient about course of treatment and patient instructions. 2. Generalized anxiety disorder - improved and stable Sertraline 150 mg daily Vistaril 25 mg three times a day as needed for anxiety and panic Medication Management and Follow-Up- Plan:- Schedule follow-up appointments every 2-3 months to monitor the patient's response to the medication regimen.- Reinforce the importance of avoiding recreational drug use due to potential neurotoxicity and interactions with prescribed medications. THERAPY WEEKLY 3. Chronic post-traumatic stress disorder -therapy stable 4. Attention deficit hyperactivity disorder, predominantly inattentive type - stable ADHD testing reviewed JANA-2 possible dxn, no age in childhood dxn per patient issues with test, stresses in home noted, treated computer test like video game no rx for ADHD prescribed r/t cannabis- REPORTED USE OCCASIONAL will work on concentration and focus in therapy discuss Straterra - educated on rx - Straterra 40 mg daily in am no control substance prescribed r/t cannabis use educated on decrease cannabis and risk cannabis and medications http_s://www.nimh.n ih.gov/health/topic s/wbqfvg-ikbxah-ovt ications http_s://www.[facility]udson.o /Ijyvi-Lyfnpo-Ogo ness/Treatments/Men thi-Tcuraz-Kklvugsg ons http_s://www.[facility]udson.o /Irtnl-Symnxv-Vuw ness/Mental-Health- Conditions http_s://[employer]r [employer].com/depression/t ad-lkuzppuic-uesfub di-fq-knkougunrd#tr eatments http__s://www.nimh. nih.gov/health/topi cs/rzninx-lgmbhm-fj dications http__s://www.[facility]. org/Muoeb-Mhzbak-In lness/Treatments/Me nmbv-Pzjncg-Rhplcjk ions Recommend decrease/stop cannabis use as it may be negatively impacting mood, motivation, anxiety, sleep, focus; can also contribute to development of psychosis Patient educated on all medications including potential benefits, side effects, risks. Educated on proper dosing schedule and importance of compliance 5. Long-term drug therapy 06/28/2024 Post-traumatic stress disorder, chronic (ICD-10 - F43.12) 06/28/2024 Attention-defic it hyperactivity disorder, predominantly inattentive type (ICD-10 - F90.0) 07/09/2024 Post-traumatic stress disorder, chronic (ICD-10 - F43.12) 07/09/2024 Attention-defic it hyperactivity disorder, predominantly inattentive type (ICD-10 - F90.0) 07/09/2024 Generalized anxiety disorder (ICD-10 - F41.1) Learning About Generalized Anxiety Disorder material was published, Generalized Anxiety Disorder: Care Instructions material was published, Learning About Generalized Anxiety Disorder material was published, Generalized Anxiety Disorder: Care Instructions material was published, Learning About Anxiety Disorders material was published rx all sent 90 days 07/09/24 continue therapy major depression- improved, stable DCFS 04/17/24 removal of children and returned 05/27/24 depression Abilify 10 mg at night for depression Sertraline 150 mg at bedtime for depression and anxiety disucss and educated on IOP program discuss [facility], [facility], [facility], [facility]- patient will check into IOP programs continue therapy will see weekly r/t post- educated on all medications, benefits, side effects and risk, and educated on depression, anxiety, and ADHD, mood d/o and educated on compliance of medications, appointment's, continue therapy discussion with patient about course of treatment and patient instructions. 2. Generalized anxiety disorder - improved and stable Sertraline 150 mg daily Vistaril 25 mg three times a day as needed for anxiety and panic Medication Management and Follow-Up- Plan:- Schedule follow-up appointments every 2-3 months to monitor the patient's response to the medication regimen.- Reinforce the importance of avoiding recreational drug use due to potential neurotoxicity and interactions with prescribed medications. THERAPY WEEKLY 3. Chronic post-traumatic stress disorder -therapy stable 4. Attention deficit hyperactivity disorder, predominantly inattentive type - stable ADHD testing reviewed JANA-2 possible dxn, no age in childhood dxn per patient issues with test, stresses in home noted, treated computer test like video game no rx for ADHD prescribed r/t cannabis- REPORTED USE OCCASIONAL will work on concentration and focus in therapy discuss Straterra - educated on rx - Straterra 40 mg daily in am no control substance prescribed r/t cannabis use educated on decrease cannabis and risk cannabis and medications http_s://www.nimh.n ih.gov/health/topic s/hsncsk-bgkvhb-hea ications http_s://www.[facility]udson.o rg/Dwmfq-Zbdbyc-Pfy ness/Treatments/Men zcg-Ekofdh-Qglorcpm ons http_s://www.[facility]udson.o rg/Ecsbd-Aiuyul-Izu ness/Mental-Health- Conditions http_s://psych[employer]op[employer]yr [employer].com/depression/t wi-wywjxeusl-fnnwuu xy-gb-lfbwjgzgjx#tr eatments http__s://www.nimh. nih.gov/health/topi cs/jzzbtq-vwgzoq-qi dications http__s://www.[facility]. org/Xvsud-Xfxznq-Is lness/Treatments/Me zvst-Epdkcn-Evznrho ions Recommend decrease/stop cannabis use as it may be negatively impacting mood, motivation, anxiety, sleep, focus; can also contribute to development of psychosis Patient educated on all medications including potential benefits, side effects, risks. Educated on proper dosing schedule and importance of compliance 5. Long-term drug therapy 07/16/2024 Generalized anxiety disorder (ICD-10 - F41.1) Learning About Generalized Anxiety Disorder material was published, Generalized Anxiety Disorder: Care Instructions material was published, Learning About Generalized Anxiety Disorder material was published, Generalized Anxiety Disorder: Care Instructions material was published, Learning About Anxiety Disorders material was published rx all sent 90 days 07/09/24 continue therapy patient has made progress and improved in depression and anxiety, major depression- improved, stable DCFS 04/17/24 removal of children and returned 05/27/24 depression Abilify 10 mg at night for depression Sertraline 150 mg at bedtime for depression and anxiety educated on all medications, benefits, side effects and risk, and educated on depression, anxiety, and ADHD, mood d/o and educated on compliance of medications, appointment's, continue therapy discussion with patient about course of treatment and patient instructions. 2. Generalized anxiety disorder - improved and stable Sertraline 150 mg daily Vistaril 25 mg three times a day as needed for anxiety and panic Medication Management and Follow-Up- Plan:- Schedule follow-up appointments every 2-3 months to monitor the patient's response to the medication regimen.- Reinforce the importance of avoiding recreational drug use due to potential neurotoxicity and interactions with prescribed medications. THERAPY conitnue 3. Chronic post-traumatic stress disorder -therapy stable 4. Attention deficit hyperactivity disorder, predominantly inattentive type - stable ADHD testing reviewed JANA-2 possible dxn, no age in childhood dxn per patient issues with test, stresses in home noted, treated computer test like video game no rx for ADHD prescribed r/t cannabis- REPORTED USE OCCASIONAL and none recently will work on concentration and focus in therapy discuss Straterra - educated on rx - Straterra 40 mg daily in am no control substance prescribed r/t cannabis use educated on decrease cannabis and risk cannabis and medications http_s://www.nim.n .gov/health/topic s/iadisc-oemnml-woo ications http_s://www.[facility].o rg/Rwmya-Qmsjjs-Ato ness/Treatments/Men uwh-Coojic-Mcrqdcih ons http_s://www.[facility]udson.o /Wkcrn-Oqeubk-Ckp ness/Mental-Health- Conditions http_s://[employer]/depression/t ke-uhcteofzj-kyzuza kc-qq-iyihdetbyv#tr eatments http__s://www.nimh. nih.gov/health/topi cs/tolwzu-ydypwz-yu dications http__s://www.[facility]. org/Vmagp-Utkpoc-Xl lness/Treatments/Me wgza-Qgrgrg-Rkqvxyv ions Recommend decrease/stop cannabis use as it may be negatively impacting mood, motivation, anxiety, sleep, focus; can also contribute to development of psychosis Patient educated on all medications including potential benefits, side effects, risks. Educated on proper dosing schedule and importance of compliance 5. Long-term drug therapy 07/29/2024 Generalized anxiety disorder (ICD-10 - F41.1) Learning About Generalized Anxiety Disorder material was published, Generalized Anxiety Disorder: Care Instructions material was published, Learning About Generalized Anxiety Disorder material was published, Generalized Anxiety Disorder: Care Instructions material was published, Learning About Anxiety Disorders material was published rx all sent 90 days 07/09/24 continue therapy patient has made progress and improved in depression and anxiety, major depression- improved, stable DCFS 04/17/24 removal of children and returned 05/27/24 depression hx Abilify 10 mg at night for depression Sertraline 150 mg at bedtime for depression and anxiety patient has made good progress and been in therapy and complaince with all appointments and medications, educated on all medications, benefits, side effects and risk, and educated on depression, anxiety, and ADHD, mood d/o and educated on compliance of medications, appointment's, continue therapy discussion with patient about course of treatment and patient instructions. 2. Generalized anxiety disorder - improved and stable Sertraline 150 mg daily Vistaril 25 mg three times a day as needed for anxiety and panic Medication Management and Follow-Up- Plan:- Schedule follow-up appointments every 2-3 months to monitor the patient's response to the medication regimen.- Reinforce the importance of avoiding recreational drug use due to potential neurotoxicity and interactions with prescribed medications. THERAPY conitnue 3. Chronic post-traumatic stress disorder -therapy stable 4. Attention deficit hyperactivity disorder, predominantly inattentive type - stable ADHD testing reviewed JANA-2 possible dxn, no age in childhood dxn per patient issues with test, stresses in home noted, treated computer test like video game no rx for ADHD prescribed r/t cannabis- REPORTED USE OCCASIONAL and none recently will work on concentration and focus in therapy discuss Straterra - educated on rx - Straterra 40 mg daily in am no control substance prescribed r/t cannabis use educated on decrease cannabis and risk cannabis and medications http_s://www.nimh.n ih.gov/health/topic s/jkbohv-hicsmi-pog ications http_s://www.[facility].o /Rplzr-Ghlkpu-Qok ness/Treatments/Men xuj-Ctnwom-Pvipqjgl ons http_s://www.[facility].o /Wjovm-Rtlbeo-Rqp ness/Mental-Health- Conditions http_s://psychcentr [employer].com/depression/t yz-jcztsadjc-iqpfyn nz-xz-astoqzdjvp#tr eatments http__s://www.nimh. nih.gov/health/topi cs/nxdzjq-rjzgtp-ug dications http__s://www.[facility]. org/Kwqfh-Zpzbmd-Uj lness/Treatments/Me dxbo-Bqnezj-Isuxogv ions Recommend decrease/stop cannabis use as it may be negatively impacting mood, motivation, anxiety, sleep, focus; can also contribute to development of psychosis Patient educated on all medications including potential benefits, side effects, risks. Educated on proper dosing schedule and importance of compliance 5. Long-term drug therapy 08/05/2024 Generalized anxiety disorder (ICD-10 - F41.1) Learning About Generalized Anxiety Disorder material was published, Generalized Anxiety Disorder: Care Instructions material was published, Learning About Generalized Anxiety Disorder material was published, Generalized Anxiety Disorder: Care Instructions material was published, Learning About Anxiety Disorders material was published rx all sent 90 days 07/09/24 continue therapy patient has made progress and improved in depression and anxiety, major depression- improved, stable DCFS 04/17/24 removal of children and returned 05/27/24 depression hx Abilify 10 mg at night for depression Sertraline 150 mg at bedtime for depression and anxiety patient has made good progress and been in therapy and complaince with all appointments and medications, educated on all medications, benefits, side effects and risk, and educated on depression, anxiety, and ADHD, mood d/o and educated on compliance of medications, appointment's, continue therapy discussion with patient about course of treatment and patient instructions. 2. Generalized anxiety disorder - improved and stable Sertraline 150 mg daily Vistaril 25 mg three times a day as needed for anxiety and panic Medication Management and Follow-Up- Plan:- Schedule follow-up appointments every 2-3 months to monitor the patient's response to the medication regimen.- Reinforce the importance of avoiding recreational drug use due to potential neurotoxicity and interactions with prescribed medications. THERAPY conitnue 3. Chronic post-traumatic stress disorder -therapy stable 4. Attention deficit hyperactivity disorder, predominantly inattentive type - stable ADHD testing reviewed JANA-2 possible dxn, no age in childhood dxn per patient issues with test, stresses in home noted, treated computer test like video game no rx for ADHD prescribed r/t cannabis- not using will work on concentration and focus in therapy discuss Straterra - educated on rx - Straterra 40 mg daily in am no control substance prescribed r/t cannabis use educated on decrease cannabis and risk cannabis and medications http_s://www.nimh.n ih.gov/health/topic s/cesecx-gbdtce-aql ications http_s://www.[facility].o rg/Ouisz-Quxtmj-Qry ness/Treatments/Men yvw-Tkhvmn-Nbtrsspb ons http_s://www.[facility].o rg/Sexse-Wclajb-Uag ness/Mental-Health- Conditions http_s://psychcentr al.com/depression/t zi-qkjyvetfc-iqultp xd-mg-iiqrccnqkn#tr eatments http__s://www.nimh. nih.gov/health/topi cs/yucyjk-ezmslw-ga dications http__s://www.[facility]. org/Nnqkx-Ybenyu-Hz lness/Treatments/Me bbub-Tiyygd-Xdpzqxe ions Recommend decrease/stop cannabis use as it may be negatively impacting mood, motivation, anxiety, sleep, focus; can also contribute to development of psychosis Patient educated on all medications including potential benefits, side effects, risks. Educated on proper dosing schedule and importance of compliance 5. Long-term drug therapy 08/08/2024 Post-traumatic stress disorder, chronic (ICD-10 - F43.12) 08/08/2024 Attention-defic it hyperactivity disorder, predominantly inattentive type (ICD-10 - F90.0) 08/15/2024 Post-traumatic stress disorder, chronic (ICD-10 - F43.12) 08/15/2024 Attention-defic it hyperactivity disorder, predominantly inattentive type (ICD-10 - F90.0) 08/19/2024 Generalized anxiety disorder (ICD-10 - F41.1) Learning About Generalized Anxiety Disorder material was published, Generalized Anxiety Disorder: Care Instructions material was published, Learning About Generalized Anxiety Disorder material was published, Generalized Anxiety Disorder: Care Instructions material was published, Learning About Anxiety Disorders material was published rx all sent 90 days 07/09/24 continue therapy patient has made progress and improved in depression and anxiety, and continue therapy major depression- improved, stable DCFS 04/17/24 removal of children and returned 05/27/24 depression hx Abilify 10 mg at night for depression Sertraline 150 mg at bedtime for depression and anxiety patient has made good progress and been in therapy and complaince with all appointments and medications, she is stable on rx and ok to schedule every 1-2 months appointments educated on all medications, benefits, side effects and risk, and educated on depression, anxiety, and ADHD, mood d/o and educated on compliance of medications, appointment's, continue therapy discussion with patient about course of treatment and patient instructions. 2. Generalized anxiety disorder - improved and stable Sertraline 150 mg daily Vistaril 25 mg three times a day as needed for anxiety and panic Medication Management and Follow-Up- Plan:- Schedule follow-up appointments every 2-3 months to monitor the patient's response to the medication regimen.- Reinforce the importance of avoiding recreational drug use due to potential neurotoxicity and interactions with prescribed medications. THERAPY conitnue 3. Chronic post-traumatic stress disorder -therapy stable 4. Attention deficit hyperactivity disorder, predominantly inattentive type - stable ADHD testing reviewed JANA-2 possible dxn, no age in childhood dxn per patient issues with test, stresses in home noted, treated computer test like video game no rx for ADHD prescribed r/t cannabis- not using will work on concentration and focus in therapy discuss Straterra - educated on rx - Straterra 40 mg daily in am no control substance prescribed r/t cannabis use educated on decrease cannabis and risk cannabis and medications http_s://www.[facility].gov/health/topic s/ksjauw-thbezo-eqb ications http_s://www.[facility].o /Dmruf-Keokis-Wau ness/Treatments/Men cfa-Cmugqb-Pugfafzn ons http_s://www.[facility].o /Rnmlm-Mgpdee-Tby ness/Mental-Health- Conditions http_s://[employer].com/depression/t fl-jothqqxiu-uamsuq bb-te-jnvchmzmef#tr eatments http__s://www.nimh. nih.gov/health/topi cs/oqwwtr-tickvj-uq dications http__s://www.[facility]. org/Vqbgf-Syoenl-Rg lness/Treatments/Me gwws-Ihtshi-Rouacbt ions Recommend decrease/stop cannabis use as it may be negatively impacting mood, motivation, anxiety, sleep, focus; can also contribute to development of psychosis Patient educated on all medications including potential benefits, side effects, risks. Educated on proper dosing schedule and importance of compliance 5. Long-term drug therapy 08/22/2024 Post-traumatic stress disorder, chronic (ICD-10 - F43.12) 08/22/2024 Attention-defic it hyperactivity disorder, predominantly inattentive type (ICD-10 - F90.0) 08/26/2024 Generalized anxiety disorder (ICD-10 - F41.1) Learning About Generalized Anxiety Disorder material was published, Generalized Anxiety Disorder: Care Instructions material was published, Learning About Generalized Anxiety Disorder material was published, Generalized Anxiety Disorder: Care Instructions material was published, Learning About Anxiety Disorders material was published rx all sent 90 days 07/09/24 continue therapy patient has made progress and improved in depression and anxiety, and continue therapy major depression- improved, stable DCFS 04/17/24 removal of children and returned 05/27/24 depression hx Abilify 10 mg at night for depression Sertraline 150 mg at bedtime for depression and anxiety patient has made good progress and been in therapy and complaince with all appointments and medications, she is stable on rx and ok to schedule every 1-2 months appointments educated on all medications, benefits, side effects and risk, and educated on depression, anxiety, and ADHD, mood d/o and educated on compliance of medications, appointment's, continue therapy discussion with patient about course of treatment and patient instructions. 2. Generalized anxiety disorder - improved and stable Sertraline 150 mg daily Vistaril 25 mg three times a day as needed for anxiety and panic Medication Management and Follow-Up- Plan:- Schedule follow-up appointments every 2-3 months to monitor the patient's response to the medication regimen.- Reinforce the importance of avoiding recreational drug use due to potential neurotoxicity and interactions with prescribed medications. THERAPY conitnue 3. Chronic post-traumatic stress disorder -therapy stable 4. Attention deficit hyperactivity disorder, predominantly inattentive type - stable ADHD testing reviewed JANA-2 possible dxn, no age in childhood dxn per patient issues with test, stresses in home noted, treated computer test like video game no rx for ADHD prescribed r/t cannabis- not using will work on concentration and focus in therapy discuss Straterra - educated on rx - Straterra 40 mg daily in am no control substance prescribed r/t cannabis use educated on decrease cannabis and risk cannabis and medications http_s://www.nimh.n ih.gov/health/topic s/iznzpe-rjeodi-grc ications http_s://www.[facility].o rg/Lxzlv-Eeoldh-Uns ness/Treatments/Men ojn-Jflmmh-Nmuiehsb ons http_s://www.[facility].o rg/Xxnpn-Nrlupc-Lgf ness/Mental-Health- Conditions http_s://psychcentr [employer].com/depression/t hj-ujffleljx-fcmtdu te-th-nviqcvarhn#tr eatments http__s://www.nimh. nih.gov/health/topi cs/zrtjek-cbwvoc-ii dications http__s://www.[facility]. org/Jxrec-Erknzm-Gi lness/Treatments/Me dehu-Igynpd-Grtrurr ions Recommend decrease/stop cannabis use as it may be negatively impacting mood, motivation, anxiety, sleep, focus; can also contribute to development of psychosis Patient educated on all medications including potential benefits, side effects, risks. Educated on proper dosing schedule and importance of compliance 5. Long-term drug therapy 09/02/2024 Generalized anxiety disorder (ICD-10 - F41.1) Learning About Generalized Anxiety Disorder material was published, Generalized Anxiety Disorder: Care Instructions material was published, Learning About Generalized Anxiety Disorder material was published, Generalized Anxiety Disorder: Care Instructions material was published, Learning About Anxiety Disorders material was published rx all sent 90 days 09/02/24 continue therapy patient has made progress and improved in depression and anxiety, and continue therapy major depression- improved, stable DCFS 04/17/24 removal of children and returned 05/27/24 depression hx Abilify 10 mg at night for depression Sertraline 150 mg at bedtime for depression and anxiety patient has made good progress and been in therapy and complaince with all appointments and medications, she is stable on rx and ok to schedule every 1-2 months appointments educated on all medications, benefits, side effects and risk, and educated on depression, anxiety, and ADHD, mood d/o and educated on compliance of medications, appointment's, continue therapy discussion with patient about course of treatment and patient instructions. 2. Generalized anxiety disorder - improved and stable Sertraline 150 mg daily Vistaril 25 mg three times a day as needed for anxiety and panic Medication Management and Follow-Up- Plan:- Schedule follow-up appointments every 2-3 months to monitor the patient's response to the medication regimen.- Reinforce the importance of avoiding recreational drug use due to potential neurotoxicity and interactions with prescribed medications. THERAPY conitnue 3. Chronic post-traumatic stress disorder -therapy stable 4. Attention deficit hyperactivity disorder, predominantly inattentive type - stable ADHD testing reviewed JANA-2 possible dxn, no age in childhood dxn per patient issues with test, stresses in home noted, treated computer test like video game no rx for ADHD prescribed r/t cannabis- not using will work on concentration and focus in therapy discuss Straterra - educated on rx - Straterra 40 mg daily in am no control substance prescribed r/t cannabis use educated on decrease cannabis and risk cannabis and medications http_s://www.nimh.n .gov/health/topic s/wykfmy-oloirw-jwc ications http_s://www.[facility].o rg/Ynsdz-Zsomml-Dci ness/Treatments/Men wnk-Ukedwi-Tdfdvdma ons http_s://www.[facility].o /Ckiwz-Usirwa-Dfq ness/Mental-Health- Conditions http_s://[employer]/depression/t cn-eixhnzejx-sggejh fu-at-egixhigmad#tr eatments http__s://www.nimh. nih.gov/health/topi cs/erhffi-yapkor-hc dications http__s://www.[facility]. org/Aioxw-Rpqbbj-Xp lness/Treatments/Me rzaa-Jprbgo-Nscccux ions Recommend decrease/stop cannabis use as it may be negatively impacting mood, motivation, anxiety, sleep, focus; can also contribute to development of psychosis Patient educated on all medications including potential benefits, side effects, risks. Educated on proper dosing schedule and importance of compliance 5. Long-term drug therapy 09/05/2024 Post-traumatic stress disorder, chronic (ICD-10 - F43.12) 09/05/2024 Attention-defic it hyperactivity disorder, predominantly inattentive type (ICD-10 - F90.0) 10/03/2024 Post-traumatic stress disorder, chronic (ICD-10 - F43.12) 10/03/2024 Attention-defic it hyperactivity disorder, predominantly inattentive type (ICD-10 - F90.0) 04/04/2025 Attention-defic it hyperactivity disorder, predominantly inattentive type (ICD-10 - F90.0) 04/11/2025 Generalized anxiety disorder (ICD-10 - F41.1) Learning About Generalized Anxiety Disorder material was published, Generalized Anxiety Disorder: Care Instructions material was published, Learning About Generalized Anxiety Disorder material was published, Generalized Anxiety Disorder: Care Instructions material was published, Learning About Anxiety Disorders material was published rx all sent 90 days continue therapy patient has made progress and improved in depression and anxiety, and continue therapy 1. major depression- stable DCFS 04/17/24 removal of children and returned 05/27/24 depression hx Abilify 10 mg at night for depression Sertraline 150 mg at bedtime for depression and anxiety aims= 0 04/11/25 educated on all medications, benefits, side effects and risk, and educated on depression, anxiety, and ADHD, mood d/o and educated on compliance of medications, appointment's, continue therapy discussion with patient about course of treatment and patient instructions. 2. Generalized anxiety disorder - stable Sertraline 150 mg daily Vistaril 25 mg three times a day as needed for anxiety and panic Medication Management and Follow-Up- Plan:- Schedule follow-up appointments every 2-3 months to monitor the patient's response to the medication regimen.- Reinforce the importance of avoiding recreational drug use due to potential neurotoxicity and interactions with prescribed medications. THERAPY conitnue 3. Chronic post-traumatic stress disorder - therapy stable 4. Attention deficit hyperactivity disorder, predominantly inattentive type - stable ADHD testing reviewed JANA-2 possible dxn, no age in childhood dxn per patient issues with test, stresses in home noted, treated computer test like video game no rx for ADHD prescribed r/t cannabis- not using will work on concentration and focus in therapy discuss Straterra - educated on rx - Straterra 40 mg daily in am no control substance prescribed r/t cannabis use educated on decrease cannabis and risk cannabis and medications http_s://www.nimh.n ih.gov/health/topic s/ljomov-pkings-aum ications http_s://www.[facility].o rg/Qshrd-Bdonen-Ftv ness/Treatments/Men ruu-Ozjkmx-Ufsepckz ons http_s://www.[facility].o rg/Enjwa-Hzgdov-Rbb ness/Mental-Health- Conditions http_s://psychcentr al.com/depression/t hg-qtvqvatnk-aolkyo jt-wh-wtlfgfrifn#tr eatments http__s://www.nimh. nih.gov/health/topi cs/cyybbf-pbnzrb-kg dications http__s://www.[facility]. org/Choit-Nbvoqo-Kk lness/Treatments/Me excd-Vkrmql-Ufjhbne ions Recommend decrease/stop cannabis use as it may be negatively impacting mood, motivation, anxiety, sleep, focus; can also contribute to development of psychosis Patient educated on all medications including potential benefits, side effects, risks. Educated on proper dosing schedule and importance of compliance 5. Long-term drug therapy 07/18/2024 Post-traumatic stress disorder, chronic (ICD-10 - F43.12) 07/18/2024 Attention-defic it hyperactivity disorder, predominantly inattentive type (ICD-10 - F90.0) 06/10/2024 Generalized anxiety disorder (ICD-10 - F41.1) Learning About Generalized Anxiety Disorder material was published, Generalized Anxiety Disorder: Care Instructions material was published, Learning About Generalized Anxiety Disorder material was published, Generalized Anxiety Disorder: Care Instructions material was published, Learning About Anxiety Disorders material was published rx all sent 90 days 05/13/24 major depression- improved, stable DCFS 04/17/24 removal of children and returned 05/27/24 depression Abilify 10 mg at night for depression Sertraline 150 mg at bedtime for depression and anxiety disucss and educated on IOP program discuss [facility], [facility], [facility], [facility]- patient will check into IOP programs continue therapy will see weekly r/t post- educated on all medications, benefits, side effects and risk, and educated on depression, anxiety, and ADHD, mood d/o and educated on compliance of medications, appointment's, continue therapy discussion with patient about course of treatment and patient instructions. 2. Generalized anxiety disorder - improved and stable Sertraline 150 mg daily Vistaril 25 mg three times a day as needed for anxiety and panic Medication Management and Follow-Up- Plan:- Schedule follow-up appointments every 2-3 months to monitor the patient's response to the medication regimen.- Reinforce the importance of avoiding recreational drug use due to potential neurotoxicity and interactions with prescribed medications. THERAPY WEEKLY 3. Chronic post-traumatic stress disorder -therapy stable 4. Attention deficit hyperactivity disorder, predominantly inattentive type - stable ADHD testing reviewed JANA-2 possible dxn, no age in childhood dxn per patient issues with test, stresses in home noted, treated computer test like video game no rx for ADHD prescribed r/t cannabis- REPORTED USE OCCASIONAL will work on concentration and focus in therapy discuss Straterra - educated on rx - Straterra 40 mg daily in am no control substance prescribed r/t cannabis use educated on decrease cannabis and risk cannabis and medications http_s://www.nimh.n ih.gov/health/topic s/wnxlbd-wzdcqn-xiu ications http_s://www.[facility].o rg/Lyoui-Wrhyve-Pzw ness/Treatments/Men fup-Vowvwn-Kwatdmoh ons http_s://www.[facility].o rg/Xmzxy-Qpchyp-Oos ness/Mental-Health- Conditions http_s://[employer].com/depression/t ch-mvkqsevyy-fxlbgy cd-to-ryngdewkdb#tr eatments http__s://www.nimh. nih.gov/health/topi cs/nmzzvb-qyacgi-dx dications http__s://www.[facility]. org/Mftkd-Aubxbu-Xw lness/Treatments/Me qjua-Mgfvhw-Zgajigm ions Recommend decrease/stop cannabis use as it may be negatively impacting mood, motivation, anxiety, sleep, focus; can also contribute to development of psychosis Patient educated on all medications including potential benefits, side effects, risks. Educated on proper dosing schedule and importance of compliance 5. Long-term drug therapy 06/10/2024 Post-traumatic stress disorder, chronic (ICD-10 - F43.12) 06/10/2024 Attention-defic it hyperactivity disorder, predominantly inattentive type (ICD-10 - F90.0) 05/27/2024 Generalized anxiety disorder (ICD-10 - F41.1) Learning About Generalized Anxiety Disorder material was published, Generalized Anxiety Disorder: Care Instructions material was published, Learning About Generalized Anxiety Disorder material was published, Generalized Anxiety Disorder: Care Instructions material was published, Learning About Anxiety Disorders material was published rx all sent 90 days today 05/13/24 recurrent major depression- DCFS 04/17/24 removal of children depression Abilify 10 mg at night for depression Sertraline 150 mg at bedtime for depression and anxiety disucss and educated on IOP program discuss [facility], [facility], [facility]- patient will check into IOP programs continue therapy will see WEEKLY NOW r/t post- educated on all medications, benefits, side effects and risk, and educated on depression, anxiety, and ADHD, mood d/o and educated on compliance of medications, appointment's, continue therapy discussion with patient about course of treatment and patient instructions. 2. Generalized anxiety disorder - Sertraline 150 mg daily Vistaril 25 mg three times a day as needed for anxiety and panic Medication Management and Follow-Up- Plan:- Schedule follow-up appointments every 2-3 months to monitor the patient's response to the medication regimen.- Reinforce the importance of avoiding recreational drug use due to potential neurotoxicity and interactions with prescribed medications. THERAPY WEEKLY 3. Chronic post-traumatic stress disorder -therapy 4. Attention deficit hyperactivity disorder, predominantly inattentive type - ADHD testing reviewed JANA-2 possible dxn, no age in childhood dxn per patient issues with test, stresses in home noted, treated computer test like video game no rx for ADHD prescribed r/t cannabis- REPORTED USE OCCASIONAL will work on concentration and focus in therapy discuss Straterra - educated on rx - Straterra 40 mg daily in am no control substance prescribed r/t cannabis use educated on decrease cannabis and risk cannabis and medications http_s://www.[facility].n .gov/health/topic s/pldezt-xyojtw-uwb ications http_s://www.[facility].o /Qstqb-Bvptvm-Afl ness/Treatments/Men gqu-Mfxbqk-Afqifzza ons http_s://www.[facility].o /Xkwrr-Hlsgsm-Zze ness/Mental-Health- Conditions http_s://psych[facility]r [employer].com/depression/t wn-ehtzxucvw-stbzjj hy-ru-qhlwderamk#tr eatments http__s://www.nimh. nih.gov/health/topi cs/wkjrob-bpzocv-ii dications http__s://www.[facility]. org/Bspij-Nqzzoi-Oi lness/Treatments/Me ikxr-Zemict-Bzddhjz ions Recommend decrease/stop cannabis use as it may be negatively impacting mood, motivation, anxiety, sleep, focus; can also contribute to development of psychosis Patient educated on all medications including potential benefits, side effects, risks. Educated on proper dosing schedule and importance of compliance 5. Long-term drug therapy 05/27/2024 MDD (major depressive disorder), recurrent episode, mild (ICD-10 - F33.0) rx all sent 90 days today 05/13/24 recurrent major depression- DCFS 04/17/24 removal of children depression Abilify 10 mg at night for depression Sertraline 150 mg at bedtime for depression and anxiety disucss and educated on IOP program discuss [facility], [facility], [facility]- patient will check into IOP programs continue therapy will see WEEKLY NOW r/t post- educated on all medications, benefits, side effects and risk, and educated on depression, anxiety, and ADHD, mood d/o and educated on compliance of medications, appointment's, continue therapy discussion with patient about course of treatment and patient instructions. 2. Generalized anxiety disorder - Sertraline 150 mg daily Vistaril 25 mg three times a day as needed for anxiety and panic Medication Management and Follow-Up- Plan:- Schedule follow-up appointments every 2-3 months to monitor the patient's response to the medication regimen.- Reinforce the importance of avoiding recreational drug use due to potential neurotoxicity and interactions with prescribed medications. THERAPY WEEKLY 3. Chronic post-traumatic stress disorder -therapy 4. Attention deficit hyperactivity disorder, predominantly inattentive type - ADHD testing reviewed JANA-2 possible dxn, no age in childhood dxn per patient issues with test, stresses in home noted, treated computer test like video game no rx for ADHD prescribed r/t cannabis- REPORTED USE OCCASIONAL will work on concentration and focus in therapy discuss Straterra - educated on rx - Straterra 40 mg daily in am no control substance prescribed r/t cannabis use educated on decrease cannabis and risk cannabis and medications http_s://www.nimh.n ih.gov/health/topic s/hevjkz-qlsbal-edm ications http_s://www.[facility].o rg/Cfnks-Wlynyo-Hwe ness/Treatments/Men onw-Ihthtm-Clfwxnbm ons http_s://www.[facility].o rg/Gcoee-Wdocfl-Dcj ness/Mental-Health- Conditions http_s://psychcentr al.com/depression/t ce-ljdehpecg-jbslar lm-qw-etzwtcsioe#tr eatments http__s://www.nimh. nih.gov/health/topi cs/gdlypx-ffpqop-bp dications http__s://www.[facility]. org/Bpgdp-Sxtqjg-Qn lness/Treatments/Me vcxz-Gyxqua-Zsiuaer ions Recommend decrease/stop cannabis use as it may be negatively impacting mood, motivation, anxiety, sleep, focus; can also contribute to development of psychosis Patient educated on all medications including potential benefits, side effects, risks. Educated on proper dosing schedule and importance of compliance 5. Long-term drug therapy 05/27/2024 Post-traumatic stress disorder, chronic (ICD-10 - F43.12) 05/27/2024 Attention-defic it hyperactivity disorder, predominantly inattentive type (ICD-10 - F90.0) 05/20/2024 Generalized anxiety disorder (ICD-10 - F41.1) Learning About Generalized Anxiety Disorder material was published, Generalized Anxiety Disorder: Care Instructions material was published, Learning About Generalized Anxiety Disorder material was published, Generalized Anxiety Disorder: Care Instructions material was published, Learning About Anxiety Disorders material was published rx all sent 90 days today 05/13/24 recurrent major depression- DCFS 04/17/24 removal of children depression Abilify 10 mg at night for depression Increase Sertraline 150 mg at bedtime for depression and anxiety disucss and educated on IOP program discuss [facility], [facility], [facility], [facility]- patient will check into IOP programs continue therapy will see WEEKLY NOW r/t post- educated on all medications, benefits, side effects and risk, and educated on depression, anxiety, and ADHD, mood d/o and educated on compliance of medications, appointment's, continue therapy discussion with patient about course of treatment and patient instructions. 2. Generalized anxiety disorder - Sertraline 150 mg daily Vistaril 25 mg three times a day as needed for anxiety and panic Medication Management and Follow-Up- Plan:- Schedule follow-up appointments every 2-3 months to monitor the patient's response to the medication regimen.- Reinforce the importance of avoiding recreational drug use due to potential neurotoxicity and interactions with prescribed medications. THERAPY WEEKLY 3. Chronic post-traumatic stress disorder -therapy 4. Attention deficit hyperactivity disorder, predominantly inattentive type - ADHD testing reviewed JANA-2 possible dxn, no age in childhood dxn per patient issues with test, stresses in home noted, treated computer test like video game no rx for ADHD prescribed r/t cannabis- REPORTED USE OCCASIONAL will work on concentration and focus in therapy discuss Straterra - educated on rx - Straterra 40 mg daily in am no control substance prescribed r/t cannabis use educated on decrease cannabis and risk cannabis and medications http_s://www.nimh.n .gov/health/topic s/tigxif-awbmpj-stg ications http_s://www.[facility].o rg/Lmllx-Pegjte-Eii ness/Treatments/Men gwh-Ngyops-Wqbcnjni ons http_s://www.[facility].o rg/Klquq-Alnotf-Zws ness/Mental-Health- Conditions http_s://psychcentr [employer].com/depression/t cq-tfuvlldrc-meorwn ag-zx-hxiowbbicz#tr eatments http__s://www.nimh. nih.gov/health/topi cs/kcscxd-lebbad-tf dications http__s://www.[facility]. org/Nkbxi-Qryoyu-Fn lness/Treatments/Me jikq-Umgbng-Wizuhyp ions Recommend decrease/stop cannabis use as it may be negatively impacting mood, motivation, anxiety, sleep, focus; can also contribute to development of psychosis Patient educated on all medications including potential benefits, side effects, risks. Educated on proper dosing schedule and importance of compliance 5. Long-term drug therapy 05/20/2024 Post-traumatic stress disorder, chronic (ICD-10 - F43.12) 05/20/2024 Attention-defic it hyperactivity disorder, predominantly inattentive type (ICD-10 - F90.0) 05/13/2024 Generalized anxiety disorder (ICD-10 - F41.1) Learning About Generalized Anxiety Disorder material was published, Generalized Anxiety Disorder: Care Instructions material was published, Learning About Generalized Anxiety Disorder material was published, Generalized Anxiety Disorder: Care Instructions material was published, Learning About Anxiety Disorders material was published rx all sent 90 days today 05/13/24 recurrent major depression- DCFS 04/17/24 removal of children depression Abilify 10 mg at night for depression Sertraline 100 mg at bedtime for depression and anxiety disucss and educated on IOP program discuss [facility], [facility], [facility], [facility]- patient will check into IOP programs National Registry for Antidepressants www.[facility].o rg/wixkbxos-sog-cfi earch-programs/preg nancyregistry/antid epressants National Registry for Atypical Antipsychotics www. [facility]. org educated on medication, benefits, side effects and risk with and and mental health stabilityreviewed epocrates profile on all rx with patient continue therapy will see WEEKLY NOW r/t post- educated on all medications, benefits, side effects and risk, and educated on depression, anxiety, and ADHD, mood d/o and educated on compliance of medications, appointment's, continue therapy discussion with patient about course of treatment and patient instructions. 2. Generalized anxiety disorder - Sertraline 100 mg daily Vistaril 25 mg three times a day as needed for anxiety and panic Medication Management and Follow-Up- Plan:- Schedule follow-up appointments every 2-3 months to monitor the patient's response to the medication regimen.- Reinforce the importance of avoiding recreational drug use due to potential neurotoxicity and interactions with prescribed medications. THERAPY WEEKLY 3. Chronic post-traumatic stress disorder -therapy 4. Attention deficit hyperactivity disorder, predominantly inattentive type - ADHD testing reviewed JANA-2 possible dxn, no age in childhood dxn per patient issues with test, stresses in home noted, treated computer test like video game no rx for ADHD prescribed r/t cannabis- REPORTED USE OCCASIONAL will work on concentration and focus in therapy discuss Straterra - educated on rx - Straterra 40 mg daily in am no control substance prescribed r/t cannabis use educated on decrease cannabis and risk cannabis and medications http_s://www.nimh.n ih.gov/health/topic s/xzruhd-fadpyn-klu ications http_s://www.[facility].o /Ddwdz-Qmhhum-Gxu ness/Treatments/Men cgw-Lumrzm-Bvmpgxsm ons http_s://www.[facility].o /Hfzvs-Rduepq-Gmk ness/Mental-Health- Conditions http_s://psychcentr [employer].com/depression/t xf-qokcyujlg-sbmyka hu-lr-sqjlnpbkzi#tr eatments http__s://www.nimh. nih.gov/health/topi cs/cyupyh-yngoad-gp dications http__s://www.[facility]. org/Nlehn-Oapqtv-Cp lness/Treatments/Me ialz-Xcwzyy-Qzrcglr ions Recommend decrease/stop cannabis use as it may be negatively impacting mood, motivation, anxiety, sleep, focus; can also contribute to development of psychosis Patient educated on all medications including potential benefits, side effects, risks. Educated on proper dosing schedule and importance of compliance 5. Long-term drug therapy 05/13/2024 Post-traumatic stress disorder, chronic (ICD-10 - F43.12) 05/13/2024 Attention-defic it hyperactivity disorder, predominantly inattentive type (ICD-10 - F90.0) 05/13/2024 MDD (major depressive disorder), recurrent episode, moderate (ICD-10 - F33.1) rx all sent 90 days today 05/13/24 recurrent major depression- DCFS 04/17/24 removal of children depression Abilify 10 mg at night for depression Sertraline 100 mg at bedtime for depression and anxiety disucss and educated on IOP program discuss [facility], [facility], [facility], [facility]- patient will check into IOP programs National Registry for Antidepressants www.[facility].o rg/xogczbnp-hmc-osu earch-programs/preg nancyregistry/antid epressants National Registry for Atypical Antipsychotics www. [facility]. org educated on medication, benefits, side effects and risk with and and mental health stabilityreviewed epocrates profile on all rx with patient continue therapy will see WEEKLY NOW r/t post- educated on all medications, benefits, side effects and risk, and educated on depression, anxiety, and ADHD, mood d/o and educated on compliance of medications, appointment's, continue therapy discussion with patient about course of treatment and patient instructions. 2. Generalized anxiety disorder - Sertraline 100 mg daily Vistaril 25 mg three times a day as needed for anxiety and panic Medication Management and Follow-Up- Plan:- Schedule follow-up appointments every 2-3 months to monitor the patient's response to the medication regimen.- Reinforce the importance of avoiding recreational drug use due to potential neurotoxicity and interactions with prescribed medications. THERAPY WEEKLY 3. Chronic post-traumatic stress disorder -therapy 4. Attention deficit hyperactivity disorder, predominantly inattentive type - ADHD testing reviewed JANA-2 possible dxn, no age in childhood dxn per patient issues with test, stresses in home noted, treated computer test like video game no rx for ADHD prescribed r/t cannabis- REPORTED USE OCCASIONAL will work on concentration and focus in therapy discuss Straterra - educated on rx - Straterra 40 mg daily in am no control substance prescribed r/t cannabis use educated on decrease cannabis and risk cannabis and medications http_s://www.nim.n .gov/health/topic s/vadduf-evytso-dyp ications http_s://www.[facility].o rg/Gpnwz-Tuhiwi-Quz ness/Treatments/Men ekw-Uzefaf-Flqohqgd ons http_s://www.[facility].o /Xyqdj-Vpgzpd-Psd ness/Mental-Health- Conditions http_s://[employer]/depression/t li-ttmwfjhgw-tbqfdu nv-bu-ejfvvbysjv#tr eatments http__s://www.nimh. nih.gov/health/topi cs/fgkfbc-uedadi-tw dications http__s://www.[facility]. org/Fhcfo-Ljwhyl-Ir lness/Treatments/Me acln-Fchufq-Wtzyxgl ions Recommend decrease/stop cannabis use as it may be negatively impacting mood, motivation, anxiety, sleep, focus; can also contribute to development of psychosis Patient educated on all medications including potential benefits, side effects, risks. Educated on proper dosing schedule and importance of compliance 5. Long-term drug therapy 08/29/2024 Post-traumatic stress disorder, chronic (ICD-10 - F43.12) 08/29/2024 Attention-defic it hyperactivity disorder, predominantly inattentive type (ICD-10 - F90.0) 08/29/2024 Post depression (ICD-10 - F53.0) 05/13/2024 Post depression (ICD-10 - F53.0) 05/13/2024 Attention-defic it hyperactivity disorder, predominantly inattentive type (ICD-10 - F90.0) Learning About Attention Deficit Hyperactivity Disorder (ADHD) in Adults material was published, Attention Deficit Hyperactivity Disorder (ADHD) in Adults: Care Instructions material was published, Learning About Attention Deficit Hyperactivity Disorder (ADHD) in Adults material was published rx all sent 90 days today 05/13/24 recurrent major depression- DCFS 04/17/24 removal of children depression Abilify 10 mg at night for depression Sertraline 100 mg at bedtime for depression and anxiety disucss and educated on IOP program discuss [facility], [facility], [facility], [facility]- patient will check into IOP programs National Registry for Antidepressants www.[facility].o rg/ytquxvdp-tzb-mnx earch-programs/preg nancyregistry/antid epressants National Registry for Atypical Antipsychotics www. [facility]. org educated on medication, benefits, side effects and risk with and and mental health stabilityreviewed epocrates profile on all rx with patient continue therapy will see WEEKLY NOW r/t post- educated on all medications, benefits, side effects and risk, and educated on depression, anxiety, and ADHD, mood d/o and educated on compliance of medications, appointment's, continue therapy discussion with patient about course of treatment and patient instructions. 2. Generalized anxiety disorder - Sertraline 100 mg daily Vistaril 25 mg three times a day as needed for anxiety and panic Medication Management and Follow-Up- Plan:- Schedule follow-up appointments every 2-3 months to monitor the patient's response to the medication regimen.- Reinforce the importance of avoiding recreational drug use due to potential neurotoxicity and interactions with prescribed medications. THERAPY WEEKLY 3. Chronic post-traumatic stress disorder -therapy 4. Attention deficit hyperactivity disorder, predominantly inattentive type - ADHD testing reviewed JANA-2 possible dxn, no age in childhood dxn per patient issues with test, stresses in home noted, treated computer test like video game no rx for ADHD prescribed r/t cannabis- REPORTED USE OCCASIONAL will work on concentration and focus in therapy discuss Straterra - educated on rx - Straterra 40 mg daily in am no control substance prescribed r/t cannabis use educated on decrease cannabis and risk cannabis and medications http_s://www.nimh.n ih.gov/health/topic s/cyippi-sjnggi-iva ications http_s://www.[facility].o rg/Pjqvi-Xrjbhv-Eof ness/Treatments/Men ftx-Vcdlhr-Brbfemfn ons http_s://www.[facility].o rg/Icnct-Vzazos-Uwe ness/Mental-Health- Conditions http_s://psychcentr al.com/depression/t nc-glcjthukg-kgulhf rc-um-tifbcklyfh#tr eatments http__s://www.nimh. nih.gov/health/topi cs/eyudck-mnqkkb-xt dications http__s://www.[facility]. org/Pshlp-Usugra-Fq lness/Treatments/Me kmug-Ggtjsl-Evtuoxh ions Recommend decrease/stop cannabis use as it may be negatively impacting mood, motivation, anxiety, sleep, focus; can also contribute to development of psychosis Patient educated on all medications including potential benefits, side effects, risks. Educated on proper dosing schedule and importance of compliance 5. Long-term drug therapy 05/20/2024 Post depression (ICD-10 - F53.0) 05/20/2024 MDD (major depressive disorder), recurrent episode, moderate (ICD-10 - F33.1) rx all sent 90 days today 05/13/24 recurrent major depression- DCFS 04/17/24 removal of children depression Abilify 10 mg at night for depression Increase Sertraline 150 mg at bedtime for depression and anxiety disucss and educated on IOP program discuss [facility], [facility], [facility], [facility]- patient will check into IOP programs continue therapy will see WEEKLY NOW r/t post- educated on all medications, benefits, side effects and risk, and educated on depression, anxiety, and ADHD, mood d/o and educated on compliance of medications, appointment's, continue therapy discussion with patient about course of treatment and patient instructions. 2. Generalized anxiety disorder - Sertraline 150 mg daily Vistaril 25 mg three times a day as needed for anxiety and panic Medication Management and Follow-Up- Plan:- Schedule follow-up appointments every 2-3 months to monitor the patient's response to the medication regimen.- Reinforce the importance of avoiding recreational drug use due to potential neurotoxicity and interactions with prescribed medications. THERAPY WEEKLY 3. Chronic post-traumatic stress disorder -therapy 4. Attention deficit hyperactivity disorder, predominantly inattentive type - ADHD testing reviewed JANA-2 possible dxn, no age in childhood dxn per patient issues with test, stresses in home noted, treated computer test like video game no rx for ADHD prescribed r/t cannabis- REPORTED USE OCCASIONAL will work on concentration and focus in therapy discuss Straterra - educated on rx - Straterra 40 mg daily in am no control substance prescribed r/t cannabis use educated on decrease cannabis and risk cannabis and medications http_s://www.nimh.n ih.gov/health/topic s/xtcdvy-nnpryu-tad ications http_s://www.[facility].o rg/Pyjbc-Cmppjd-Sud ness/Treatments/Men cgz-Twgdla-Cdkjdsnc ons http_s://www.[facility].o rg/Jkbvq-Avyfkv-Vde ness/Mental-Health- Conditions http_s://psychcentr [employer].com/depression/t no-kctxdonop-nblfug qa-ou-fmryzyxxje#tr eatments http__s://www.nimh. nih.gov/health/topi cs/uulbnp-eoeanm-kx dications http__s://www.[facility]. org/Fgwqx-Qdsvwq-Uc lness/Treatments/Me qzyc-Wqotkz-Gjhblaa ions Recommend decrease/stop cannabis use as it may be negatively impacting mood, motivation, anxiety, sleep, focus; can also contribute to development of psychosis Patient educated on all medications including potential benefits, side effects, risks. Educated on proper dosing schedule and importance of compliance 5. Long-term drug therapy 05/27/2024 MDD (major depressive disorder), severe (ICD-10 - F32.2) 05/27/2024 Attention-defic it hyperactivity disorder, predominantly inattentive type (ICD-10 - F90.0) Learning About Attention Deficit Hyperactivity Disorder (ADHD) in Adults material was published, Attention Deficit Hyperactivity Disorder (ADHD) in Adults: Care Instructions material was published, Learning About Attention Deficit Hyperactivity Disorder (ADHD) in Adults material was published rx all sent 90 days today 05/13/24 recurrent major depression- DCFS 04/17/24 removal of children depression Abilify 10 mg at night for depression Sertraline 150 mg at bedtime for depression and anxiety disucss and educated on IOP program discuss [facility], [facility], [facility]- patient will check into IOP programs continue therapy will see WEEKLY NOW r/t post- educated on all medications, benefits, side effects and risk, and educated on depression, anxiety, and ADHD, mood d/o and educated on compliance of medications, appointment's, continue therapy discussion with patient about course of treatment and patient instructions. 2. Generalized anxiety disorder - Sertraline 150 mg daily Vistaril 25 mg three times a day as needed for anxiety and panic Medication Management and Follow-Up- Plan:- Schedule follow-up appointments every 2-3 months to monitor the patient's response to the medication regimen.- Reinforce the importance of avoiding recreational drug use due to potential neurotoxicity and interactions with prescribed medications. THERAPY WEEKLY 3. Chronic post-traumatic stress disorder -therapy 4. Attention deficit hyperactivity disorder, predominantly inattentive type - ADHD testing reviewed JANA-2 possible dxn, no age in childhood dxn per patient issues with test, stresses in home noted, treated computer test like video game no rx for ADHD prescribed r/t cannabis- REPORTED USE OCCASIONAL will work on concentration and focus in therapy discuss Straterra - educated on rx - Straterra 40 mg daily in am no control substance prescribed r/t cannabis use educated on decrease cannabis and risk cannabis and medications http_s://www.[facility].gov/health/topic s/nffqqg-ssmgkc-sdz ications http_s://www.[facility].o /Brcqi-Bagwbd-Arr ness/Treatments/Men xpj-Xzcghf-Vydzntwz ons http_s://www.[facility].o /Bxkiy-Haypcq-Zap ness/Mental-Health- Conditions http_s://psychcentr [employer].com/depression/t vg-iodabnbum-mhjjol vi-hb-pyowfcajsx#tr eatments http__s://www.nim. nih.gov/health/topi cs/grerye-rzrrsp-pv dications http__s://www.[facility]. org/Lmzto-Uhfsvy-Cl lness/Treatments/Me bmel-Olwcgl-Wkaxnyg ions Recommend decrease/stop cannabis use as it may be negatively impacting mood, motivation, anxiety, sleep, focus; can also contribute to development of psychosis Patient educated on all medications including potential benefits, side effects, risks. Educated on proper dosing schedule and importance of compliance 5. Long-term drug therapy 06/10/2024 Post depression (ICD-10 - F53.0) 07/18/2024 Post depression (ICD-10 - F53.0) 06/10/2024 Attention-defic it hyperactivity disorder, predominantly inattentive type (ICD-10 - F90.0) Learning About Attention Deficit Hyperactivity Disorder (ADHD) in Adults material was published, Attention Deficit Hyperactivity Disorder (ADHD) in Adults: Care Instructions material was published, Learning About Attention Deficit Hyperactivity Disorder (ADHD) in Adults material was published rx all sent 90 days 05/13/24 major depression- improved, stable DCFS 04/17/24 removal of children and returned 05/27/24 depression Abilify 10 mg at night for depression Sertraline 150 mg at bedtime for depression and anxiety disucss and educated on IOP program discuss [facility], [facility], [facility], [facility]- patient will check into IOP programs continue therapy will see weekly r/t post- educated on all medications, benefits, side effects and risk, and educated on depression, anxiety, and ADHD, mood d/o and educated on compliance of medications, appointment's, continue therapy discussion with patient about course of treatment and patient instructions. 2. Generalized anxiety disorder - improved and stable Sertraline 150 mg daily Vistaril 25 mg three times a day as needed for anxiety and panic Medication Management and Follow-Up- Plan:- Schedule follow-up appointments every 2-3 months to monitor the patient's response to the medication regimen.- Reinforce the importance of avoiding recreational drug use due to potential neurotoxicity and interactions with prescribed medications. THERAPY WEEKLY 3. Chronic post-traumatic stress disorder -therapy stable 4. Attention deficit hyperactivity disorder, predominantly inattentive type - stable ADHD testing reviewed JANA-2 possible dxn, no age in childhood dxn per patient issues with test, stresses in home noted, treated computer test like video game no rx for ADHD prescribed r/t cannabis- REPORTED USE OCCASIONAL will work on concentration and focus in therapy discuss Straterra - educated on rx - Straterra 40 mg daily in am no control substance prescribed r/t cannabis use educated on decrease cannabis and risk cannabis and medications http_s://www.nimh.n ih.gov/health/topic s/iuenkn-gwvifm-ncc ications http_s://www.[facility].o rg/Fxflw-Hhgofp-Pqu ness/Treatments/Men okk-Icsevi-Jmvupcuy ons http_s://www.[facility].o rg/Stqlq-Notygc-Fjj ness/Mental-Health- Conditions http_s://psychcentr al.com/depression/t hg-uyfwctrna-yrbhqn mn-cr-jlmazmruch#tr eatments http__s://www.nimh. nih.gov/health/topi cs/xgumys-ltovjr-cb dications http__s://www.[facility]. org/Jnlmi-Xwyfca-Im lness/Treatments/Me mpgx-Mvbbzc-Puhgqpk ions Recommend decrease/stop cannabis use as it may be negatively impacting mood, motivation, anxiety, sleep, focus; can also contribute to development of psychosis Patient educated on all medications including potential benefits, side effects, risks. Educated on proper dosing schedule and importance of compliance 5. Long-term drug therapy 04/11/2025 Attention-defic it hyperactivity disorder, predominantly inattentive type (ICD-10 - F90.0) Learning About Attention Deficit Hyperactivity Disorder (ADHD) in Adults material was published, Attention Deficit Hyperactivity Disorder (ADHD) in Adults: Care Instructions material was published, Learning About Attention Deficit Hyperactivity Disorder (ADHD) in Adults material was published rx all sent 90 days continue therapy patient has made progress and improved in depression and anxiety, and continue therapy 1. major depression- stable DCFS 04/17/24 removal of children and returned 05/27/24 depression hx Abilify 10 mg at night for depression Sertraline 150 mg at bedtime for depression and anxiety aims= 0 04/11/25 educated on all medications, benefits, side effects and risk, and educated on depression, anxiety, and ADHD, mood d/o and educated on compliance of medications, appointment's, continue therapy discussion with patient about course of treatment and patient instructions. 2. Generalized anxiety disorder - stable Sertraline 150 mg daily Vistaril 25 mg three times a day as needed for anxiety and panic Medication Management and Follow-Up- Plan:- Schedule follow-up appointments every 2-3 months to monitor the patient's response to the medication regimen.- Reinforce the importance of avoiding recreational drug use due to potential neurotoxicity and interactions with prescribed medications. THERAPY conitnue 3. Chronic post-traumatic stress disorder - therapy stable 4. Attention deficit hyperactivity disorder, predominantly inattentive type - stable ADHD testing reviewed JANA-2 possible dxn, no age in childhood dxn per patient issues with test, stresses in home noted, treated computer test like video game no rx for ADHD prescribed r/t cannabis- not using will work on concentration and focus in therapy discuss Straterra - educated on rx - Straterra 40 mg daily in am no control substance prescribed r/t cannabis use educated on decrease cannabis and risk cannabis and medications http_s://www.nimh.n .gov/health/topic s/swaasu-gikmgw-ngu ications http_s://www.[facility].o rg/Vosmr-Bsvxph-Gqv ness/Treatments/Men chp-Rrmvws-Fpvwzjbi ons http_s://www.[facility].o rg/Pgfhi-Wdghgr-Yid ness/Mental-Health- Conditions http_s://[employer].com/depression/t ds-bpazxyobo-azrzal nr-br-tbktswzxds#tr eatments http__s://www.nimh. nih.gov/health/topi cs/xaztat-nlqhle-ry dications http__s://www.[facility]. org/Wzmdx-Wpxjso-At lness/Treatments/Me sthr-Jdcpie-Ozzpdbh ions Recommend decrease/stop cannabis use as it may be negatively impacting mood, motivation, anxiety, sleep, focus; can also contribute to development of psychosis Patient educated on all medications including potential benefits, side effects, risks. Educated on proper dosing schedule and importance of compliance 5. Long-term drug therapy 10/03/2024 Post depression (ICD-10 - F53.0) 09/05/2024 Post depression (ICD-10 - F53.0) 09/02/2024 Attention-defic it hyperactivity disorder, predominantly inattentive type (ICD-10 - F90.0) Learning About Attention Deficit Hyperactivity Disorder (ADHD) in Adults material was published, Attention Deficit Hyperactivity Disorder (ADHD) in Adults: Care Instructions material was published, Learning About Attention Deficit Hyperactivity Disorder (ADHD) in Adults material was published rx all sent 90 days 09/02/24 continue therapy patient has made progress and improved in depression and anxiety, and continue therapy major depression- improved, stable DCFS 04/17/24 removal of children and returned 05/27/24 depression hx Abilify 10 mg at night for depression Sertraline 150 mg at bedtime for depression and anxiety patient has made good progress and been in therapy and complaince with all appointments and medications, she is stable on rx and ok to schedule every 1-2 months appointments educated on all medications, benefits, side effects and risk, and educated on depression, anxiety, and ADHD, mood d/o and educated on compliance of medications, appointment's, continue therapy discussion with patient about course of treatment and patient instructions. 2. Generalized anxiety disorder - improved and stable Sertraline 150 mg daily Vistaril 25 mg three times a day as needed for anxiety and panic Medication Management and Follow-Up- Plan:- Schedule follow-up appointments every 2-3 months to monitor the patient's response to the medication regimen.- Reinforce the importance of avoiding recreational drug use due to potential neurotoxicity and interactions with prescribed medications. THERAPY conitnue 3. Chronic post-traumatic stress disorder -therapy stable 4. Attention deficit hyperactivity disorder, predominantly inattentive type - stable ADHD testing reviewed JANA-2 possible dxn, no age in childhood dxn per patient issues with test, stresses in home noted, treated computer test like video game no rx for ADHD prescribed r/t cannabis- not using will work on concentration and focus in therapy discuss Straterra - educated on rx - Straterra 40 mg daily in am no control substance prescribed r/t cannabis use educated on decrease cannabis and risk cannabis and medications http_s://www.nimh.n ih.gov/health/topic s/fmszmm-rnusqh-cpm ications http_s://www.[facility].o /Sjxpi-Whpprs-Clc ness/Treatments/Men hby-Tiyaze-Jifttkda ons http_s://www.[facility].o /Wabgs-Jvamuj-Elw ness/Mental-Health- Conditions http_s://psychcentr [employer].com/depression/t fm-egiwtkvvz-dfcljq ri-hu-qigptepjfu#tr eatments http__s://www.nimh. nih.gov/health/topi cs/kzkvjv-vbbyzk-ra dications http__s://www.[facility]. org/Bpbiz-Qjizii-Xi lness/Treatments/Me gvyj-Venwqi-Uzdsoou ions Recommend decrease/stop cannabis use as it may be negatively impacting mood, motivation, anxiety, sleep, focus; can also contribute to development of psychosis Patient educated on all medications including potential benefits, side effects, risks. Educated on proper dosing schedule and importance of compliance 5. Long-term drug therapy 08/26/2024 Attention-defic it hyperactivity disorder, predominantly inattentive type (ICD-10 - F90.0) Learning About Attention Deficit Hyperactivity Disorder (ADHD) in Adults material was published, Attention Deficit Hyperactivity Disorder (ADHD) in Adults: Care Instructions material was published, Learning About Attention Deficit Hyperactivity Disorder (ADHD) in Adults material was published rx all sent 90 days 07/09/24 continue therapy patient has made progress and improved in depression and anxiety, and continue therapy major depression- improved, stable DCFS 04/17/24 removal of children and returned 05/27/24 depression hx Abilify 10 mg at night for depression Sertraline 150 mg at bedtime for depression and anxiety patient has made good progress and been in therapy and complaince with all appointments and medications, she is stable on rx and ok to schedule every 1-2 months appointments educated on all medications, benefits, side effects and risk, and educated on depression, anxiety, and ADHD, mood d/o and educated on compliance of medications, appointment's, continue therapy discussion with patient about course of treatment and patient instructions. 2. Generalized anxiety disorder - improved and stable Sertraline 150 mg daily Vistaril 25 mg three times a day as needed for anxiety and panic Medication Management and Follow-Up- Plan:- Schedule follow-up appointments every 2-3 months to monitor the patient's response to the medication regimen.- Reinforce the importance of avoiding recreational drug use due to potential neurotoxicity and interactions with prescribed medications. THERAPY conitnue 3. Chronic post-traumatic stress disorder -therapy stable 4. Attention deficit hyperactivity disorder, predominantly inattentive type - stable ADHD testing reviewed JANA-2 possible dxn, no age in childhood dxn per patient issues with test, stresses in home noted, treated computer test like video game no rx for ADHD prescribed r/t cannabis- not using will work on concentration and focus in therapy discuss Straterra - educated on rx - Straterra 40 mg daily in am no control substance prescribed r/t cannabis use educated on decrease cannabis and risk cannabis and medications http_s://www.nimh.n ih.gov/health/topic s/ixaxem-zxakzc-ezl ications http_s://www.[facility].o rg/Mftgi-Serunu-Fpq ness/Treatments/Men dky-Irzffl-Apgrvidd ons http_s://www.[facility].o rg/Hbbdv-Omjpnq-Bwc ness/Mental-Health- Conditions http_s://psychcentr al.com/depression/t vm-xqblntpab-lfuced ro-ux-afrruyuhys#tr eatments http__s://www.nimh. nih.gov/health/topi cs/jaxtxn-mxpgdt-by dications http__s://www.[facility]. org/Duqum-Myvtca-Ki lness/Treatments/Me dhvb-Dqvbkl-Ltravva ions Recommend decrease/stop cannabis use as it may be negatively impacting mood, motivation, anxiety, sleep, focus; can also contribute to development of psychosis Patient educated on all medications including potential benefits, side effects, risks. Educated on proper dosing schedule and importance of compliance 5. Long-term drug therapy 08/22/2024 Post depression (ICD-10 - F53.0) 08/15/2024 Post depression (ICD-10 - F53.0) 08/19/2024 Attention-defic it hyperactivity disorder, predominantly inattentive type (ICD-10 - F90.0) Learning About Attention Deficit Hyperactivity Disorder (ADHD) in Adults material was published, Attention Deficit Hyperactivity Disorder (ADHD) in Adults: Care Instructions material was published, Learning About Attention Deficit Hyperactivity Disorder (ADHD) in Adults material was published rx all sent 90 days 07/09/24 continue therapy patient has made progress and improved in depression and anxiety, and continue therapy major depression- improved, stable DCFS 04/17/24 removal of children and returned 05/27/24 depression hx Abilify 10 mg at night for depression Sertraline 150 mg at bedtime for depression and anxiety patient has made good progress and been in therapy and complaince with all appointments and medications, she is stable on rx and ok to schedule every 1-2 months appointments educated on all medications, benefits, side effects and risk, and educated on depression, anxiety, and ADHD, mood d/o and educated on compliance of medications, appointment's, continue therapy discussion with patient about course of treatment and patient instructions. 2. Generalized anxiety disorder - improved and stable Sertraline 150 mg daily Vistaril 25 mg three times a day as needed for anxiety and panic Medication Management and Follow-Up- Plan:- Schedule follow-up appointments every 2-3 months to monitor the patient's response to the medication regimen.- Reinforce the importance of avoiding recreational drug use due to potential neurotoxicity and interactions with prescribed medications. THERAPY conitnue 3. Chronic post-traumatic stress disorder -therapy stable 4. Attention deficit hyperactivity disorder, predominantly inattentive type - stable ADHD testing reviewed JANA-2 possible dxn, no age in childhood dxn per patient issues with test, stresses in home noted, treated computer test like video game no rx for ADHD prescribed r/t cannabis- not using will work on concentration and focus in therapy discuss Straterra - educated on rx - Straterra 40 mg daily in am no control substance prescribed r/t cannabis use educated on decrease cannabis and risk cannabis and medications http_s://www.nim.n .gov/health/topic s/ckiawd-mlgqeo-rto ications http_s://www.[facility].o /Cgkue-Oqdruu-Imr ness/Treatments/Men sdl-Vwxbwy-Cppuzqvn ons http_s://www.[facility].o /Xhtqq-Wkvlas-Wyt ness/Mental-Health- Conditions http_s://[employer]/depression/t nh-bcfxeivty-tthfhg em-lb-ncwnxyenpk#tr eatments http__s://www.nimh. nih.gov/health/topi cs/anrfex-lcbmzf-dc dications http__s://www.[facility]. org/Sbkyo-Hjqxfx-Ws lness/Treatments/Me jirz-Xzicol-Gozjfqw ions Recommend decrease/stop cannabis use as it may be negatively impacting mood, motivation, anxiety, sleep, focus; can also contribute to development of psychosis Patient educated on all medications including potential benefits, side effects, risks. Educated on proper dosing schedule and importance of compliance 5. Long-term drug therapy 08/08/2024 Post depression (ICD-10 - F53.0) 08/05/2024 Attention-defic it hyperactivity disorder, predominantly inattentive type (ICD-10 - F90.0) Learning About Attention Deficit Hyperactivity Disorder (ADHD) in Adults material was published, Attention Deficit Hyperactivity Disorder (ADHD) in Adults: Care Instructions material was published, Learning About Attention Deficit Hyperactivity Disorder (ADHD) in Adults material was published rx all sent 90 days 07/09/24 continue therapy patient has made progress and improved in depression and anxiety, major depression- improved, stable DCFS 04/17/24 removal of children and returned 05/27/24 depression hx Abilify 10 mg at night for depression Sertraline 150 mg at bedtime for depression and anxiety patient has made good progress and been in therapy and complaince with all appointments and medications, educated on all medications, benefits, side effects and risk, and educated on depression, anxiety, and ADHD, mood d/o and educated on compliance of medications, appointment's, continue therapy discussion with patient about course of treatment and patient instructions. 2. Generalized anxiety disorder - improved and stable Sertraline 150 mg daily Vistaril 25 mg three times a day as needed for anxiety and panic Medication Management and Follow-Up- Plan:- Schedule follow-up appointments every 2-3 months to monitor the patient's response to the medication regimen.- Reinforce the importance of avoiding recreational drug use due to potential neurotoxicity and interactions with prescribed medications. THERAPY conitnue 3. Chronic post-traumatic stress disorder -therapy stable 4. Attention deficit hyperactivity disorder, predominantly inattentive type - stable ADHD testing reviewed JANA-2 possible dxn, no age in childhood dxn per patient issues with test, stresses in home noted, treated computer test like video game no rx for ADHD prescribed r/t cannabis- not using will work on concentration and focus in therapy discuss Straterra - educated on rx - Straterra 40 mg daily in am no control substance prescribed r/t cannabis use educated on decrease cannabis and risk cannabis and medications http_s://www.nimh.n ih.gov/health/topic s/djjoms-vzkupc-wmi ications http_s://www.[facility].o /Ureik-Duimeu-Tmd ness/Treatments/Men adp-Ddigwj-Vbchlyaa ons http_s://www.[facility].o /Gpwal-Nyipjr-Xkv ness/Mental-Health- Conditions http_s://psychcentr al.com/depression/t xz-wlzuvhalr-wbrzsz vc-ms-qyeihqkmsl#tr eatments http__s://www.nimh. nih.gov/health/topi cs/kmqeth-yuccxe-zw dications http__s://www.[facility]. org/Odkrx-Hfdmxp-Kp lness/Treatments/Me dbxj-Teirtp-Cpnjdpe ions Recommend decrease/stop cannabis use as it may be negatively impacting mood, motivation, anxiety, sleep, focus; can also contribute to development of psychosis Patient educated on all medications including potential benefits, side effects, risks. Educated on proper dosing schedule and importance of compliance 5. Long-term drug therapy 07/29/2024 Attention-defic it hyperactivity disorder, predominantly inattentive type (ICD-10 - F90.0) Learning About Attention Deficit Hyperactivity Disorder (ADHD) in Adults material was published, Attention Deficit Hyperactivity Disorder (ADHD) in Adults: Care Instructions material was published, Learning About Attention Deficit Hyperactivity Disorder (ADHD) in Adults material was published rx all sent 90 days 07/09/24 continue therapy patient has made progress and improved in depression and anxiety, major depression- improved, stable DCFS 04/17/24 removal of children and returned 05/27/24 depression hx Abilify 10 mg at night for depression Sertraline 150 mg at bedtime for depression and anxiety patient has made good progress and been in therapy and complaince with all appointments and medications, educated on all medications, benefits, side effects and risk, and educated on depression, anxiety, and ADHD, mood d/o and educated on compliance of medications, appointment's, continue therapy discussion with patient about course of treatment and patient instructions. 2. Generalized anxiety disorder - improved and stable Sertraline 150 mg daily Vistaril 25 mg three times a day as needed for anxiety and panic Medication Management and Follow-Up- Plan:- Schedule follow-up appointments every 2-3 months to monitor the patient's response to the medication regimen.- Reinforce the importance of avoiding recreational drug use due to potential neurotoxicity and interactions with prescribed medications. THERAPY conitnue 3. Chronic post-traumatic stress disorder -therapy stable 4. Attention deficit hyperactivity disorder, predominantly inattentive type - stable ADHD testing reviewed JANA-2 possible dxn, no age in childhood dxn per patient issues with test, stresses in home noted, treated computer test like video game no rx for ADHD prescribed r/t cannabis- REPORTED USE OCCASIONAL and none recently will work on concentration and focus in therapy discuss Straterra - educated on rx - Straterra 40 mg daily in am no control substance prescribed r/t cannabis use educated on decrease cannabis and risk cannabis and medications http_s://www.nimh.n ih.gov/health/topic s/jzdqkw-ksbgfl-jja ications http_s://www.[facility].o rg/Tissz-Otwoce-Eum ness/Treatments/Men xjx-Jpwmdo-Sqwsqvzo ons http_s://www.[facility].o rg/Hqmtx-Xljxgc-Bzp ness/Mental-Health- Conditions http_s://psych[employer]r [employer].com/depression/t xw-sbouvujsu-gyjqqe an-jq-nugcmfjtsv#tr eatments http__s://www.nimh. nih.gov/health/topi cs/ajlixq-oqrxts-fy dications http__s://www.[facility]. org/Twryl-Mvxhsi-Op lness/Treatments/Me aaoj-Vovcvb-Jhalbbq ions Recommend decrease/stop cannabis use as it may be negatively impacting mood, motivation, anxiety, sleep, focus; can also contribute to development of psychosis Patient educated on all medications including potential benefits, side effects, risks. Educated on proper dosing schedule and importance of compliance 5. Long-term drug therapy 07/16/2024 Attention-defic it hyperactivity disorder, predominantly inattentive type (ICD-10 - F90.0) Learning About Attention Deficit Hyperactivity Disorder (ADHD) in Adults material was published, Attention Deficit Hyperactivity Disorder (ADHD) in Adults: Care Instructions material was published, Learning About Attention Deficit Hyperactivity Disorder (ADHD) in Adults material was published rx all sent 90 days 07/09/24 continue therapy patient has made progress and improved in depression and anxiety, major depression- improved, stable DCFS 04/17/24 removal of children and returned 05/27/24 depression Abilify 10 mg at night for depression Sertraline 150 mg at bedtime for depression and anxiety educated on all medications, benefits, side effects and risk, and educated on depression, anxiety, and ADHD, mood d/o and educated on compliance of medications, appointment's, continue therapy discussion with patient about course of treatment and patient instructions. 2. Generalized anxiety disorder - improved and stable Sertraline 150 mg daily Vistaril 25 mg three times a day as needed for anxiety and panic Medication Management and Follow-Up- Plan:- Schedule follow-up appointments every 2-3 months to monitor the patient's response to the medication regimen.- Reinforce the importance of avoiding recreational drug use due to potential neurotoxicity and interactions with prescribed medications. THERAPY conitnue 3. Chronic post-traumatic stress disorder -therapy stable 4. Attention deficit hyperactivity disorder, predominantly inattentive type - stable ADHD testing reviewed JANA-2 possible dxn, no age in childhood dxn per patient issues with test, stresses in home noted, treated computer test like video game no rx for ADHD prescribed r/t cannabis- REPORTED USE OCCASIONAL and none recently will work on concentration and focus in therapy discuss Straterra - educated on rx - Straterra 40 mg daily in am no control substance prescribed r/t cannabis use educated on decrease cannabis and risk cannabis and medications http_s://www.nimh.n .gov/health/topic s/bicchn-rpyrqf-ptx ications http_s://www.[facility].o rg/Equco-Rkuayc-Vdx ness/Treatments/Men asw-Jeqhpg-Dotcdcfa ons http_s://www.[facility].o /Mqupb-Sskqra-Qcp ness/Mental-Health- Conditions http_s://psych[employer]/depression/t dh-xivvibfha-vajsqe sx-eq-qumpbyqtay#tr eatments http__s://www.nimh. nih.gov/health/topi cs/inencs-dzxpnw-mp dications http__s://www.[facility]. org/Ujqfz-Wopzis-Pp lness/Treatments/Me koro-Cozmdn-Cptvehx ions Recommend decrease/stop cannabis use as it may be negatively impacting mood, motivation, anxiety, sleep, focus; can also contribute to development of psychosis Patient educated on all medications including potential benefits, side effects, risks. Educated on proper dosing schedule and importance of compliance 5. Long-term drug therapy 07/09/2024 Attention-defic it hyperactivity disorder, predominantly inattentive type (ICD-10 - F90.0) Learning About Attention Deficit Hyperactivity Disorder (ADHD) in Adults material was published, Attention Deficit Hyperactivity Disorder (ADHD) in Adults: Care Instructions material was published, Learning About Attention Deficit Hyperactivity Disorder (ADHD) in Adults material was published rx all sent 90 days 07/09/24 continue therapy major depression- improved, stable DCFS 04/17/24 removal of children and returned 05/27/24 depression Abilify 10 mg at night for depression Sertraline 150 mg at bedtime for depression and anxiety disucss and educated on IOP program discuss [facility], [facility], [facility]- patient will check into IOP programs continue therapy will see weekly r/t post- educated on all medications, benefits, side effects and risk, and educated on depression, anxiety, and ADHD, mood d/o and educated on compliance of medications, appointment's, continue therapy discussion with patient about course of treatment and patient instructions. 2. Generalized anxiety disorder - improved and stable Sertraline 150 mg daily Vistaril 25 mg three times a day as needed for anxiety and panic Medication Management and Follow-Up- Plan:- Schedule follow-up appointments every 2-3 months to monitor the patient's response to the medication regimen.- Reinforce the importance of avoiding recreational drug use due to potential neurotoxicity and interactions with prescribed medications. THERAPY WEEKLY 3. Chronic post-traumatic stress disorder -therapy stable 4. Attention deficit hyperactivity disorder, predominantly inattentive type - stable ADHD testing reviewed JANA-2 possible dxn, no age in childhood dxn per patient issues with test, stresses in home noted, treated computer test like video game no rx for ADHD prescribed r/t cannabis- REPORTED USE OCCASIONAL will work on concentration and focus in therapy discuss Straterra - educated on rx - Straterra 40 mg daily in am no control substance prescribed r/t cannabis use educated on decrease cannabis and risk cannabis and medications http_s://www.nimh.n ih.gov/health/topic s/swmxyx-qxnetw-dbc ications http_s://www.[facility].o /Ysgrf-Gwkoyy-Ebs ness/Treatments/Men kja-Eiawaj-Acdeytni ons http_s://www.[facility].o /Iiupw-Soeiuc-Mjv ness/Mental-Health- Conditions http_s://psychcentr [employer].com/depression/t ts-tjdledqhu-celwtx uu-da-omzdagahuo#tr eatments http__s://www.nimh. nih.gov/health/topi cs/kgbszf-hnozvh-ix dications http__s://www.[facility]. org/Kbzcv-Vxaybe-Jz lness/Treatments/Me arlx-Fykuvc-Owtwsxo ions Recommend decrease/stop cannabis use as it may be negatively impacting mood, motivation, anxiety, sleep, focus; can also contribute to development of psychosis Patient educated on all medications including potential benefits, side effects, risks. Educated on proper dosing schedule and importance of compliance 5. Long-term drug therapy 07/09/2024 Post depression (ICD-10 - F53.0) 06/28/2024 Post depression (ICD-10 - F53.0) 06/21/2024 Attention-defic it hyperactivity disorder, predominantly inattentive type (ICD-10 - F90.0) Learning About Attention Deficit Hyperactivity Disorder (ADHD) in Adults material was published, Attention Deficit Hyperactivity Disorder (ADHD) in Adults: Care Instructions material was published, Learning About Attention Deficit Hyperactivity Disorder (ADHD) in Adults material was published rx all sent 90 days 05/13/24 continue therapy major depression- improved, stable DCFS 04/17/24 removal of children and returned 05/27/24 depression Abilify 10 mg at night for depression Sertraline 150 mg at bedtime for depression and anxiety disucss and educated on IOP program discuss [facility], [facility], [facility], [facility]- patient will check into IOP programs continue therapy will see weekly r/t post- educated on all medications, benefits, side effects and risk, and educated on depression, anxiety, and ADHD, mood d/o and educated on compliance of medications, appointment's, continue therapy discussion with patient about course of treatment and patient instructions. 2. Generalized anxiety disorder - improved and stable Sertraline 150 mg daily Vistaril 25 mg three times a day as needed for anxiety and panic Medication Management and Follow-Up- Plan:- Schedule follow-up appointments every 2-3 months to monitor the patient's response to the medication regimen.- Reinforce the importance of avoiding recreational drug use due to potential neurotoxicity and interactions with prescribed medications. THERAPY WEEKLY 3. Chronic post-traumatic stress disorder -therapy stable 4. Attention deficit hyperactivity disorder, predominantly inattentive type - stable ADHD testing reviewed JANA-2 possible dxn, no age in childhood dxn per patient issues with test, stresses in home noted, treated computer test like video game no rx for ADHD prescribed r/t cannabis- REPORTED USE OCCASIONAL will work on concentration and focus in therapy discuss Straterra - educated on rx - Straterra 40 mg daily in am no control substance prescribed r/t cannabis use educated on decrease cannabis and risk cannabis and medications http_s://www.nimh.n ih.gov/health/topic s/ewyeas-cqkjqk-vev ications http_s://www.[facility].o rg/Vzhje-Ywtqwu-Mjg ness/Treatments/Men mga-Cdwihv-Ynlgkqfp ons http_s://www.[facility].o rg/Gaftj-Behrav-Hto ness/Mental-Health- Conditions http_s://psychcentr [employer].com/depression/t zz-dsguvcwjy-rrlkbw yq-iy-pemncokeer#tr eatments http__s://www.nimh. nih.gov/health/topi cs/crcvew-rvclzm-jk dications http__s://www.[facility]. org/Eshxy-Xyuilu-Jz lness/Treatments/Me ojeg-Yvfihk-Pftiqfy ions Recommend decrease/stop cannabis use as it may be negatively impacting mood, motivation, anxiety, sleep, focus; can also contribute to development of psychosis Patient educated on all medications including potential benefits, side effects, risks. Educated on proper dosing schedule and importance of compliance 5. Long-term drug therapy 06/21/2024 Post depression (ICD-10 - F53.0) 06/07/2024 Attention-defic it hyperactivity disorder, predominantly inattentive type (ICD-10 - F90.0) Learning About Attention Deficit Hyperactivity Disorder (ADHD) in Adults material was published, Attention Deficit Hyperactivity Disorder (ADHD) in Adults: Care Instructions material was published, Learning About Attention Deficit Hyperactivity Disorder (ADHD) in Adults material was published rx all sent 90 days 05/13/24 major depression- DCFS 04/17/24 removal of children and returned 05/27/24 depression Abilify 10 mg at night for depression Sertraline 150 mg at bedtime for depression and anxiety disucss and educated on IOP program discuss [facility], [facility], [facility], [facility]- patient will check into IOP programs continue therapy will see weekly r/t post- educated on all medications, benefits, side effects and risk, and educated on depression, anxiety, and ADHD, mood d/o and educated on compliance of medications, appointment's, continue therapy discussion with patient about course of treatment and patient instructions. 2. Generalized anxiety disorder - Sertraline 150 mg daily Vistaril 25 mg three times a day as needed for anxiety and panic Medication Management and Follow-Up- Plan:- Schedule follow-up appointments every 2-3 months to monitor the patient's response to the medication regimen.- Reinforce the importance of avoiding recreational drug use due to potential neurotoxicity and interactions with prescribed medications. THERAPY WEEKLY 3. Chronic post-traumatic stress disorder -therapy 4. Attention deficit hyperactivity disorder, predominantly inattentive type - ADHD testing reviewed JANA-2 possible dxn, no age in childhood dxn per patient issues with test, stresses in home noted, treated computer test like video game no rx for ADHD prescribed r/t cannabis- REPORTED USE OCCASIONAL will work on concentration and focus in therapy discuss Straterra - educated on rx - Straterra 40 mg daily in am no control substance prescribed r/t cannabis use educated on decrease cannabis and risk cannabis and medications http_s://www.nim.n .gov/health/topic s/fnubec-kurtlq-pkz ications http_s://www.[facility].o rg/Kddhn-Mvcfgx-Ouh ness/Treatments/Men efv-Svumbb-Prsktsue ons http_s://www.[facility].o /Wlmvz-Nfwjpn-Gxx ness/Mental-Health- Conditions http_s://[employer]/depression/t hp-yyuqojfzj-avzsgh qt-pg-unqtolqusb#tr eatments http__s://www.nimh. nih.gov/health/topi cs/kfdzrd-mjpweb-zt dications http__s://www.[facility]. org/Ljbfb-Fthfcd-Qi lness/Treatments/Me ppaf-Ihevvz-Nnnhxsj ions Recommend decrease/stop cannabis use as it may be negatively impacting mood, motivation, anxiety, sleep, focus; can also contribute to development of psychosis Patient educated on all medications including potential benefits, side effects, risks. Educated on proper dosing schedule and importance of compliance 5. Long-term drug therapy 06/07/2024 MDD (major depressive disorder), severe (ICD-10 - F32.2) 06/07/2024 Post-traumatic stress disorder, chronic (ICD-10 - F43.12) Post-Traumatic Stress Disorder (PTSD): Care Instructions material was published, Post-Traumatic Stress Disorder (PTSD): Care Instructions material was published, Learning About PTSD After a Stay in the ICU material was published rx all sent 90 days 05/13/24 major depression- DCFS 04/17/24 removal of children and returned 05/27/24 depression Abilify 10 mg at night for depression Sertraline 150 mg at bedtime for depression and anxiety disucss and educated on IOP program discuss [facility], [facility], [facility], [facility]- patient will check into IOP programs continue therapy will see weekly r/t post- educated on all medications, benefits, side effects and risk, and educated on depression, anxiety, and ADHD, mood d/o and educated on compliance of medications, appointment's, continue therapy discussion with patient about course of treatment and patient instructions. 2. Generalized anxiety disorder - Sertraline 150 mg daily Vistaril 25 mg three times a day as needed for anxiety and panic Medication Management and Follow-Up- Plan:- Schedule follow-up appointments every 2-3 months to monitor the patient's response to the medication regimen.- Reinforce the importance of avoiding recreational drug use due to potential neurotoxicity and interactions with prescribed medications. THERAPY WEEKLY 3. Chronic post-traumatic stress disorder -therapy 4. Attention deficit hyperactivity disorder, predominantly inattentive type - ADHD testing reviewed JANA-2 possible dxn, no age in childhood dxn per patient issues with test, stresses in home noted, treated computer test like video game no rx for ADHD prescribed r/t cannabis- REPORTED USE OCCASIONAL will work on concentration and focus in therapy discuss Straterra - educated on rx - Straterra 40 mg daily in am no control substance prescribed r/t cannabis use educated on decrease cannabis and risk cannabis and medications http_s://www.nimh.n ih.gov/health/topic s/vrcdfl-avyuka-nke ications http_s://www.[facility].o /Plaay-Upremf-Ujz ness/Treatments/Men voc-Vzfgth-Hjoqysri ons http_s://www.[facility].o /Cmtty-Sedmgx-Cnj ness/Mental-Health- Conditions http_s://psychcentr [employer].com/depression/t zm-ktpreyvsj-mutxmk yc-ky-hpafjxcfbm#tr eatments http__s://www.nimh. nih.gov/health/topi cs/tljltw-cavvmc-nh dications http__s://www.[facility]. org/Mbxzw-Njnznw-Cx lness/Treatments/Me loyd-Bieaxo-Scusadg ions Recommend decrease/stop cannabis use as it may be negatively impacting mood, motivation, anxiety, sleep, focus; can also contribute to development of psychosis Patient educated on all medications including potential benefits, side effects, risks. Educated on proper dosing schedule and importance of compliance 5. Long-term drug therapy 06/07/2024 MDD (major depressive disorder), recurrent episode, mild (ICD-10 - F33.0) rx all sent 90 days 05/13/24 major depression- DCFS 04/17/24 removal of children and returned 05/27/24 depression Abilify 10 mg at night for depression Sertraline 150 mg at bedtime for depression and anxiety disucss and educated on IOP program discuss [facility], [facility], [facility]- patient will check into IOP programs continue therapy will see weekly r/t post- educated on all medications, benefits, side effects and risk, and educated on depression, anxiety, and ADHD, mood d/o and educated on compliance of medications, appointment's, continue therapy discussion with patient about course of treatment and patient instructions. 2. Generalized anxiety disorder - Sertraline 150 mg daily Vistaril 25 mg three times a day as needed for anxiety and panic Medication Management and Follow-Up- Plan:- Schedule follow-up appointments every 2-3 months to monitor the patient's response to the medication regimen.- Reinforce the importance of avoiding recreational drug use due to potential neurotoxicity and interactions with prescribed medications. THERAPY WEEKLY 3. Chronic post-traumatic stress disorder -therapy 4. Attention deficit hyperactivity disorder, predominantly inattentive type - ADHD testing reviewed JANA-2 possible dxn, no age in childhood dxn per patient issues with test, stresses in home noted, treated computer test like video game no rx for ADHD prescribed r/t cannabis- REPORTED USE OCCASIONAL will work on concentration and focus in therapy discuss Straterra - educated on rx - Straterra 40 mg daily in am no control substance prescribed r/t cannabis use educated on decrease cannabis and risk cannabis and medications http_s://www.nimh.n ih.gov/health/topic s/klwokw-keociq-nqu ications http_s://www.[facility].o rg/Knato-Xnsved-Awf ness/Treatments/Men rhc-Lvmujz-Jmkuxovp ons http_s://www.[facility].o rg/Dvjpu-Dpolbc-Jfy ness/Mental-Health- Conditions http_s://psychcentr al.com/depression/t ae-tpwentwqo-mwdkub xx-og-deiyzjghnl#tr eatments http__s://www.nimh. nih.gov/health/topi cs/myuztc-ffctaj-hq dications http__s://www.[facility]. org/Edpik-Refkgh-Yj lness/Treatments/Me fvbb-Qdnxxr-Lvnnmux ions Recommend decrease/stop cannabis use as it may be negatively impacting mood, motivation, anxiety, sleep, focus; can also contribute to development of psychosis Patient educated on all medications including potential benefits, side effects, risks. Educated on proper dosing schedule and importance of compliance 5. Long-term drug therapy 06/21/2024 MDD (major depressive disorder), recurrent episode, mild (ICD-10 - F33.0) rx all sent 90 days 05/13/24 continue therapy major depression- improved, stable DCFS 04/17/24 removal of children and returned 05/27/24 depression Abilify 10 mg at night for depression Sertraline 150 mg at bedtime for depression and anxiety disucss and educated on IOP program discuss [facility], [facility], [facility], [facility]- patient will check into IOP programs continue therapy will see weekly r/t post- educated on all medications, benefits, side effects and risk, and educated on depression, anxiety, and ADHD, mood d/o and educated on compliance of medications, appointment's, continue therapy discussion with patient about course of treatment and patient instructions. 2. Generalized anxiety disorder - improved and stable Sertraline 150 mg daily Vistaril 25 mg three times a day as needed for anxiety and panic Medication Management and Follow-Up- Plan:- Schedule follow-up appointments every 2-3 months to monitor the patient's response to the medication regimen.- Reinforce the importance of avoiding recreational drug use due to potential neurotoxicity and interactions with prescribed medications. THERAPY WEEKLY 3. Chronic post-traumatic stress disorder -therapy stable 4. Attention deficit hyperactivity disorder, predominantly inattentive type - stable ADHD testing reviewed JANA-2 possible dxn, no age in childhood dxn per patient issues with test, stresses in home noted, treated computer test like video game no rx for ADHD prescribed r/t cannabis- REPORTED USE OCCASIONAL will work on concentration and focus in therapy discuss Straterra - educated on rx - Straterra 40 mg daily in am no control substance prescribed r/t cannabis use educated on decrease cannabis and risk cannabis and medications http_s://www.nimh.n ih.gov/health/topic s/tqfqht-ebuovf-ogi ications http_s://www.[facility].o rg/Eaqxw-Nmvpzk-Wkn ness/Treatments/Men mxr-Ydjcgf-Emfgnzjh ons http_s://www.[facility].o rg/Xcdxr-Awzxgn-Est ness/Mental-Health- Conditions http_s://psychcentr [employer].com/depression/t rp-icvlxvecm-nchiqe qf-uh-inlnbgjlkb#tr eatments http__s://www.nimh. nih.gov/health/topi cs/falorr-zyyzri-ic dications http__s://www.[facility]. org/Braqu-Kxtypx-Yy lness/Treatments/Me hdkf-Sbnbfj-Zummdry ions Recommend decrease/stop cannabis use as it may be negatively impacting mood, motivation, anxiety, sleep, focus; can also contribute to development of psychosis Patient educated on all medications including potential benefits, side effects, risks. Educated on proper dosing schedule and importance of compliance 5. Long-term drug therapy 07/09/2024 Generalized anxiety disorder (ICD-10 - F41.1) 06/21/2024 Generalized anxiety disorder (ICD-10 - F41.1) 06/28/2024 Generalized anxiety disorder (ICD-10 - F41.1) 07/16/2024 MDD (major depressive disorder), recurrent episode, mild (ICD-10 - F33.0) rx all sent 90 days 07/09/24 continue therapy patient has made progress and improved in depression and anxiety, major depression- improved, stable DCFS 04/17/24 removal of children and returned 05/27/24 depression Abilify 10 mg at night for depression Sertraline 150 mg at bedtime for depression and anxiety educated on all medications, benefits, side effects and risk, and educated on depression, anxiety, and ADHD, mood d/o and educated on compliance of medications, appointment's, continue therapy discussion with patient about course of treatment and patient instructions. 2. Generalized anxiety disorder - improved and stable Sertraline 150 mg daily Vistaril 25 mg three times a day as needed for anxiety and panic Medication Management and Follow-Up- Plan:- Schedule follow-up appointments every 2-3 months to monitor the patient's response to the medication regimen.- Reinforce the importance of avoiding recreational drug use due to potential neurotoxicity and interactions with prescribed medications. THERAPY conitnue 3. Chronic post-traumatic stress disorder -therapy stable 4. Attention deficit hyperactivity disorder, predominantly inattentive type - stable ADHD testing reviewed JANA-2 possible dxn, no age in childhood dxn per patient issues with test, stresses in home noted, treated computer test like video game no rx for ADHD prescribed r/t cannabis- REPORTED USE OCCASIONAL and none recently will work on concentration and focus in therapy discuss Straterra - educated on rx - Straterra 40 mg daily in am no control substance prescribed r/t cannabis use educated on decrease cannabis and risk cannabis and medications http_s://www.[facility].gov/health/topic s/ttfuwt-hyzess-hto ications http_s://www.[facility].o /Qbwnm-Jjbbnw-Guo ness/Treatments/Men bsa-Dqqnye-Tqlzxjfo ons http_s://www.[facility].o /Ptmtd-Mvqlem-Uie ness/Mental-Health- Conditions http_s://psych[employer].com/depression/t hs-gtbenrcpc-ezlupn ni-gy-jiqalrkpgq#tr eatments http__s://www.nimh. nih.gov/health/topi cs/gjykwd-rpacpi-wx dications http__s://www.[facility]. org/Irzie-Cargqx-Qr lness/Treatments/Me pxki-Efryxi-Pfqtebm ions Recommend decrease/stop cannabis use as it may be negatively impacting mood, motivation, anxiety, sleep, focus; can also contribute to development of psychosis Patient educated on all medications including potential benefits, side effects, risks. Educated on proper dosing schedule and importance of compliance 5. Long-term drug therapy 07/09/2024 MDD (major depressive disorder), recurrent episode, mild (ICD-10 - F33.0) rx all sent 90 days 07/09/24 continue therapy major depression- improved, stable DCFS 04/17/24 removal of children and returned 05/27/24 depression Abilify 10 mg at night for depression Sertraline 150 mg at bedtime for depression and anxiety disucss and educated on IOP program discuss [facility], [facility], [facility], [facility]- patient will check into IOP programs continue therapy will see weekly r/t post- educated on all medications, benefits, side effects and risk, and educated on depression, anxiety, and ADHD, mood d/o and educated on compliance of medications, appointment's, continue therapy discussion with patient about course of treatment and patient instructions. 2. Generalized anxiety disorder - improved and stable Sertraline 150 mg daily Vistaril 25 mg three times a day as needed for anxiety and panic Medication Management and Follow-Up- Plan:- Schedule follow-up appointments every 2-3 months to monitor the patient's response to the medication regimen.- Reinforce the importance of avoiding recreational drug use due to potential neurotoxicity and interactions with prescribed medications. THERAPY WEEKLY 3. Chronic post-traumatic stress disorder -therapy stable 4. Attention deficit hyperactivity disorder, predominantly inattentive type - stable ADHD testing reviewed JANA-2 possible dxn, no age in childhood dxn per patient issues with test, stresses in home noted, treated computer test like video game no rx for ADHD prescribed r/t cannabis- REPORTED USE OCCASIONAL will work on concentration and focus in therapy discuss Straterra - educated on rx - Straterra 40 mg daily in am no control substance prescribed r/t cannabis use educated on decrease cannabis and risk cannabis and medications http_s://www.nimh.n ih.gov/health/topic s/elgbwt-mqrgwt-txy ications http_s://www.[facility].o /Lhczz-Ldesli-Wrm ness/Treatments/Men xoi-Gosbru-Gjeyckiw ons http_s://www.[facility].o /Sfrua-Prbmaf-Mdq ness/Mental-Health- Conditions http_s://psychcentr [employer].com/depression/t pc-yalrgiemj-vuuwqc pu-wv-suoywztxdo#tr eatments http__s://www.nimh. nih.gov/health/topi cs/bupldr-crwwvl-cs dications http__s://www.[facility]. org/Owedn-Cywhpq-Nc lness/Treatments/Me ectu-Fvhnqg-Bnulpck ions Recommend decrease/stop cannabis use as it may be negatively impacting mood, motivation, anxiety, sleep, focus; can also contribute to development of psychosis Patient educated on all medications including potential benefits, side effects, risks. Educated on proper dosing schedule and importance of compliance 5. Long-term drug therapy 07/29/2024 MDD (major depressive disorder), recurrent episode, mild (ICD-10 - F33.0) rx all sent 90 days 07/09/24 continue therapy patient has made progress and improved in depression and anxiety, major depression- improved, stable DCFS 04/17/24 removal of children and returned 05/27/24 depression hx Abilify 10 mg at night for depression Sertraline 150 mg at bedtime for depression and anxiety patient has made good progress and been in therapy and complaince with all appointments and medications, educated on all medications, benefits, side effects and risk, and educated on depression, anxiety, and ADHD, mood d/o and educated on compliance of medications, appointment's, continue therapy discussion with patient about course of treatment and patient instructions. 2. Generalized anxiety disorder - improved and stable Sertraline 150 mg daily Vistaril 25 mg three times a day as needed for anxiety and panic Medication Management and Follow-Up- Plan:- Schedule follow-up appointments every 2-3 months to monitor the patient's response to the medication regimen.- Reinforce the importance of avoiding recreational drug use due to potential neurotoxicity and interactions with prescribed medications. THERAPY conitnue 3. Chronic post-traumatic stress disorder -therapy stable 4. Attention deficit hyperactivity disorder, predominantly inattentive type - stable ADHD testing reviewed JANA-2 possible dxn, no age in childhood dxn per patient issues with test, stresses in home noted, treated computer test like video game no rx for ADHD prescribed r/t cannabis- REPORTED USE OCCASIONAL and none recently will work on concentration and focus in therapy discuss Straterra - educated on rx - Straterra 40 mg daily in am no control substance prescribed r/t cannabis use educated on decrease cannabis and risk cannabis and medications http_s://www.nimh.n ih.gov/health/topic s/npvwuv-wrldbu-svw ications http_s://www.[facility].o rg/Himvt-Pjtnwq-Rrz ness/Treatments/Men zbz-Kgydzd-Xuspzesv ons http_s://www.[facility].o rg/Cxjhi-Qeztkn-Cif ness/Mental-Health- Conditions http_s://psychcentr al.com/depression/t rh-wjjpvghzz-sgxtbo jc-mu-tozsvmesaz#tr eatments http__s://www.nimh. nih.gov/health/topi cs/kwcdox-juhsxg-cv dications http__s://www.[facility]. org/Kwjqo-Vawrim-Nq lness/Treatments/Me rmqd-Opougp-Ekjsbmx ions Recommend decrease/stop cannabis use as it may be negatively impacting mood, motivation, anxiety, sleep, focus; can also contribute to development of psychosis Patient educated on all medications including potential benefits, side effects, risks. Educated on proper dosing schedule and importance of compliance 5. Long-term drug therapy 08/05/2024 MDD (major depressive disorder), recurrent episode, mild (ICD-10 - F33.0) rx all sent 90 days 07/09/24 continue therapy patient has made progress and improved in depression and anxiety, major depression- improved, stable DCFS 04/17/24 removal of children and returned 05/27/24 depression hx Abilify 10 mg at night for depression Sertraline 150 mg at bedtime for depression and anxiety patient has made good progress and been in therapy and complaince with all appointments and medications, educated on all medications, benefits, side effects and risk, and educated on depression, anxiety, and ADHD, mood d/o and educated on compliance of medications, appointment's, continue therapy discussion with patient about course of treatment and patient instructions. 2. Generalized anxiety disorder - improved and stable Sertraline 150 mg daily Vistaril 25 mg three times a day as needed for anxiety and panic Medication Management and Follow-Up- Plan:- Schedule follow-up appointments every 2-3 months to monitor the patient's response to the medication regimen.- Reinforce the importance of avoiding recreational drug use due to potential neurotoxicity and interactions with prescribed medications. THERAPY conitnue 3. Chronic post-traumatic stress disorder -therapy stable 4. Attention deficit hyperactivity disorder, predominantly inattentive type - stable ADHD testing reviewed JANA-2 possible dxn, no age in childhood dxn per patient issues with test, stresses in home noted, treated computer test like video game no rx for ADHD prescribed r/t cannabis- not using will work on concentration and focus in therapy discuss Straterra - educated on rx - Straterra 40 mg daily in am no control substance prescribed r/t cannabis use educated on decrease cannabis and risk cannabis and medications http_s://www.nimh.n .gov/health/topic s/hnyzfa-rqzduu-kwl ications http_s://www.[facility].o rg/Asyog-Bojwuk-Wjy ness/Treatments/Men ubz-Oyhyne-Nepvkgnn ons http_s://www.[facility].o rg/Ypbvk-Kooptn-Tqd ness/Mental-Health- Conditions http_s://psych[employer].com/depression/t tv-ywxnnrqxi-dftpdw qo-xj-omhkorsuad#tr eatments http__s://www.nimh. nih.gov/health/topi cs/tmuxeo-bieusu-mw dications http__s://www.[facility]. org/Qgvhg-Hocsao-Bx lness/Treatments/Me nedw-Xzjhwv-Xuuamnr ions Recommend decrease/stop cannabis use as it may be negatively impacting mood, motivation, anxiety, sleep, focus; can also contribute to development of psychosis Patient educated on all medications including potential benefits, side effects, risks. Educated on proper dosing schedule and importance of compliance 5. Long-term drug therapy 08/15/2024 Generalized anxiety disorder (ICD-10 - F41.1) 08/19/2024 MDD (major depressive disorder), recurrent episode, mild (ICD-10 - F33.0) rx all sent 90 days 07/09/24 continue therapy patient has made progress and improved in depression and anxiety, and continue therapy major depression- improved, stable DCFS 04/17/24 removal of children and returned 05/27/24 depression hx Abilify 10 mg at night for depression Sertraline 150 mg at bedtime for depression and anxiety patient has made good progress and been in therapy and complaince with all appointments and medications, she is stable on rx and ok to schedule every 1-2 months appointments educated on all medications, benefits, side effects and risk, and educated on depression, anxiety, and ADHD, mood d/o and educated on compliance of medications, appointment's, continue therapy discussion with patient about course of treatment and patient instructions. 2. Generalized anxiety disorder - improved and stable Sertraline 150 mg daily Vistaril 25 mg three times a day as needed for anxiety and panic Medication Management and Follow-Up- Plan:- Schedule follow-up appointments every 2-3 months to monitor the patient's response to the medication regimen.- Reinforce the importance of avoiding recreational drug use due to potential neurotoxicity and interactions with prescribed medications. THERAPY conitnue 3. Chronic post-traumatic stress disorder -therapy stable 4. Attention deficit hyperactivity disorder, predominantly inattentive type - stable ADHD testing reviewed JANA-2 possible dxn, no age in childhood dxn per patient issues with test, stresses in home noted, treated computer test like video game no rx for ADHD prescribed r/t cannabis- not using will work on concentration and focus in therapy discuss Straterra - educated on rx - Straterra 40 mg daily in am no control substance prescribed r/t cannabis use educated on decrease cannabis and risk cannabis and medications http_s://www.[facility].n .gov/health/topic s/kdalvi-dmidum-fnd ications http_s://www.[facility].o /Ukfmr-Qlfqox-Xap ness/Treatments/Men zjr-Ocykbb-Ncmfxhio ons http_s://www.[employer].o /Tdbkf-Pdsyot-Yjq ness/Mental-Health- Conditions http_s://psychcentr [employer].com/depression/t gg-eigcewfdx-tmytjr ql-tx-xbqulugviy#tr eatments http__s://www.nim[facility]. nih.gov/health/topi cs/bonkxm-kxbjxb-ju dications http__s://www.[facility]. org/Inzmx-Monuhu-Jm lness/Treatments/Me krxu-Mtbyix-Efobzad ions Recommend decrease/stop cannabis use as it may be negatively impacting mood, motivation, anxiety, sleep, focus; can also contribute to development of psychosis Patient educated on all medications including potential benefits, side effects, risks. Educated on proper dosing schedule and importance of compliance 5. Long-term drug therapy 08/19/2024 Post-traumatic stress disorder, chronic (ICD-10 - F43.12) Post-Traumatic Stress Disorder (PTSD): Care Instructions material was published, Post-Traumatic Stress Disorder (PTSD): Care Instructions material was published, Learning About PTSD After a Stay in the ICU material was published rx all sent 90 days 07/09/24 continue therapy patient has made progress and improved in depression and anxiety, and continue therapy major depression- improved, stable DCFS 04/17/24 removal of children and returned 05/27/24 depression hx Abilify 10 mg at night for depression Sertraline 150 mg at bedtime for depression and anxiety patient has made good progress and been in therapy and complaince with all appointments and medications, she is stable on rx and ok to schedule every 1-2 months appointments educated on all medications, benefits, side effects and risk, and educated on depression, anxiety, and ADHD, mood d/o and educated on compliance of medications, appointment's, continue therapy discussion with patient about course of treatment and patient instructions. 2. Generalized anxiety disorder - improved and stable Sertraline 150 mg daily Vistaril 25 mg three times a day as needed for anxiety and panic Medication Management and Follow-Up- Plan:- Schedule follow-up appointments every 2-3 months to monitor the patient's response to the medication regimen.- Reinforce the importance of avoiding recreational drug use due to potential neurotoxicity and interactions with prescribed medications. THERAPY conitnue 3. Chronic post-traumatic stress disorder -therapy stable 4. Attention deficit hyperactivity disorder, predominantly inattentive type - stable ADHD testing reviewed JANA-2 possible dxn, no age in childhood dxn per patient issues with test, stresses in home noted, treated computer test like video game no rx for ADHD prescribed r/t cannabis- not using will work on concentration and focus in therapy discuss Straterra - educated on rx - Straterra 40 mg daily in am no control substance prescribed r/t cannabis use educated on decrease cannabis and risk cannabis and medications http_s://www.[facility].n ih.gov/health/topic s/nfbdat-gulzlj-nrx ications http_s://www.[facility].o rg/Neero-Qtuooq-Lkk ness/Treatments/Men uhk-Tklpby-Gcvzddws ons http_s://www.[facility].o rg/Ymjsq-Twlncw-Vpx ness/Mental-Health- Conditions http_s://psychcentr al.com/depression/t ae-bgkbbdesz-eoizbc nd-lx-lbxpljgaia#tr eatments http__s://www.nim[facility]. nih.gov/health/topi cs/dibpej-swzuiv-pg dications http__s://www.[facility]. org/Osczk-Ztcdjh-Od lness/Treatments/Me rvkw-Lcarrz-Zirryvx ions Recommend decrease/stop cannabis use as it may be negatively impacting mood, motivation, anxiety, sleep, focus; can also contribute to development of psychosis Patient educated on all medications including potential benefits, side effects, risks. Educated on proper dosing schedule and importance of compliance 5. Long-term drug therapy 08/08/2024 Generalized anxiety disorder (ICD-10 - F41.1) 08/22/2024 Generalized anxiety disorder (ICD-10 - F41.1) 09/02/2024 MDD (major depressive disorder), recurrent episode, mild (ICD-10 - F33.0) rx all sent 90 days 09/02/24 continue therapy patient has made progress and improved in depression and anxiety, and continue therapy major depression- improved, stable DCFS 04/17/24 removal of children and returned 05/27/24 depression hx Abilify 10 mg at night for depression Sertraline 150 mg at bedtime for depression and anxiety patient has made good progress and been in therapy and complaince with all appointments and medications, she is stable on rx and ok to schedule every 1-2 months appointments educated on all medications, benefits, side effects and risk, and educated on depression, anxiety, and ADHD, mood d/o and educated on compliance of medications, appointment's, continue therapy discussion with patient about course of treatment and patient instructions. 2. Generalized anxiety disorder - improved and stable Sertraline 150 mg daily Vistaril 25 mg three times a day as needed for anxiety and panic Medication Management and Follow-Up- Plan:- Schedule follow-up appointments every 2-3 months to monitor the patient's response to the medication regimen.- Reinforce the importance of avoiding recreational drug use due to potential neurotoxicity and interactions with prescribed medications. THERAPY conitnue 3. Chronic post-traumatic stress disorder -therapy stable 4. Attention deficit hyperactivity disorder, predominantly inattentive type - stable ADHD testing reviewed JANA-2 possible dxn, no age in childhood dxn per patient issues with test, stresses in home noted, treated computer test like video game no rx for ADHD prescribed r/t cannabis- not using will work on concentration and focus in therapy discuss Straterra - educated on rx - Straterra 40 mg daily in am no control substance prescribed r/t cannabis use educated on decrease cannabis and risk cannabis and medications http_s://www.[facility].n ih.gov/health/topic s/yqoztj-pbzuzi-svh ications http_s://www.[facility].o rg/Qipkx-Pfktha-Iaj ness/Treatments/Men zfe-Gtavfu-Cshjivfw ons http_s://www.[facility].o rg/Rtgex-Aigxbj-Kfm ness/Mental-Health- Conditions http_s://psychcentr [employer].com/depression/t wc-alyaunpgn-dyrzvx sl-qz-vyvfshzugk#tr eatments http__s://www.nim[facility]. nih.gov/health/topi cs/mfobtw-vixjzy-dh dications http__s://www.[facility]. org/Qgnyq-Jjeqai-Go lness/Treatments/Me lmda-Qarbwn-Nlccmjx ions Recommend decrease/stop cannabis use as it may be negatively impacting mood, motivation, anxiety, sleep, focus; can also contribute to development of psychosis Patient educated on all medications including potential benefits, side effects, risks. Educated on proper dosing schedule and importance of compliance 5. Long-term drug therapy 08/26/2024 MDD (major depressive disorder), recurrent episode, mild (ICD-10 - F33.0) rx all sent 90 days 07/09/24 continue therapy patient has made progress and improved in depression and anxiety, and continue therapy major depression- improved, stable DCFS 04/17/24 removal of children and returned 05/27/24 depression hx Abilify 10 mg at night for depression Sertraline 150 mg at bedtime for depression and anxiety patient has made good progress and been in therapy and complaince with all appointments and medications, she is stable on rx and ok to schedule every 1-2 months appointments educated on all medications, benefits, side effects and risk, and educated on depression, anxiety, and ADHD, mood d/o and educated on compliance of medications, appointment's, continue therapy discussion with patient about course of treatment and patient instructions. 2. Generalized anxiety disorder - improved and stable Sertraline 150 mg daily Vistaril 25 mg three times a day as needed for anxiety and panic Medication Management and Follow-Up- Plan:- Schedule follow-up appointments every 2-3 months to monitor the patient's response to the medication regimen.- Reinforce the importance of avoiding recreational drug use due to potential neurotoxicity and interactions with prescribed medications. THERAPY conitnue 3. Chronic post-traumatic stress disorder -therapy stable 4. Attention deficit hyperactivity disorder, predominantly inattentive type - stable ADHD testing reviewed JANA-2 possible dxn, no age in childhood dxn per patient issues with test, stresses in home noted, treated computer test like video game no rx for ADHD prescribed r/t cannabis- not using will work on concentration and focus in therapy discuss Straterra - educated on rx - Straterra 40 mg daily in am no control substance prescribed r/t cannabis use educated on decrease cannabis and risk cannabis and medications http_s://www.[facility]im[facility].n ih.gov/health/topic s/ttxlaa-deyaxl-rfx ications http_s://www.[facility].o rg/Uxqqf-Ntlyiz-Skb ness/Treatments/Men oso-Wqpbvi-Nzxmcoli ons http_s://www.[facility].o /Zypxf-Npstyp-Iar ness/Mental-Health- Conditions http_s://[employer]/depression/t ev-xjmvzrvzr-eqedtm wy-yq-hbtlxopbzo#tr eatments http__s://www.nim[facility]. nih.gov/health/topi cs/nguyqh-hwrbem-wh dications http__s://www.[facility]. org/Ljaae-Pwkrhg-So lness/Treatments/Me mbeg-Adovkj-Hxxoiyd ions Recommend decrease/stop cannabis use as it may be negatively impacting mood, motivation, anxiety, sleep, focus; can also contribute to development of psychosis Patient educated on all medications including potential benefits, side effects, risks. Educated on proper dosing schedule and importance of compliance 5. Long-term drug therapy 10/03/2024 Generalized anxiety disorder (ICD-10 - F41.1) 04/11/2025 Post-traumatic stress disorder, chronic (ICD-10 - F43.12) Post-Traumatic Stress Disorder (PTSD): Care Instructions material was published, Post-Traumatic Stress Disorder (PTSD): Care Instructions material was published, Learning About PTSD After a Stay in the ICU material was published rx all sent 90 days continue therapy patient has made progress and improved in depression and anxiety, and continue therapy 1. major depression- stable DCFS 04/17/24 removal of children and returned 05/27/24 depression hx Abilify 10 mg at night for depression Sertraline 150 mg at bedtime for depression and anxiety aims= 0 04/11/25 educated on all medications, benefits, side effects and risk, and educated on depression, anxiety, and ADHD, mood d/o and educated on compliance of medications, appointment's, continue therapy discussion with patient about course of treatment and patient instructions. 2. Generalized anxiety disorder - stable Sertraline 150 mg daily Vistaril 25 mg three times a day as needed for anxiety and panic Medication Management and Follow-Up- Plan:- Schedule follow-up appointments every 2-3 months to monitor the patient's response to the medication regimen.- Reinforce the importance of avoiding recreational drug use due to potential neurotoxicity and interactions with prescribed medications. THERAPY conitnue 3. Chronic post-traumatic stress disorder - therapy stable 4. Attention deficit hyperactivity disorder, predominantly inattentive type - stable ADHD testing reviewed JANA-2 possible dxn, no age in childhood dxn per patient issues with test, stresses in home noted, treated computer test like video game no rx for ADHD prescribed r/t cannabis- not using will work on concentration and focus in therapy discuss Straterra - educated on rx - Straterra 40 mg daily in am no control substance prescribed r/t cannabis use educated on decrease cannabis and risk cannabis and medications http_s://www.[facility]im[facility].n ih.gov/health/topic s/riicbk-ewmfln-qpx ications http_s://www.[facility].o /Bwjqr-Abqwum-Noa ness/Treatments/Men vwm-Zkpmrq-Xdckxton ons http_s://www.[facility].o /Avjxk-Jjbcgk-Dvn ness/Mental-Health- Conditions http_s://psychcentr [employer].com/depression/t rl-ubapjvrbb-oxbzig rr-xq-tqhsiblqbn#tr eatments http__s://www.nim[facility]. nih.gov/health/topi cs/zurxrz-yajtiy-hm dications http__s://www.[facility]. org/Ndhyq-Jjzkfw-Db lness/Treatments/Me oqxw-Gdypnq-Eymmhtu ions Recommend decrease/stop cannabis use as it may be negatively impacting mood, motivation, anxiety, sleep, focus; can also contribute to development of psychosis Patient educated on all medications including potential benefits, side effects, risks. Educated on proper dosing schedule and importance of compliance 5. Long-term drug therapy 04/11/2025 MDD (major depressive disorder), recurrent episode, mild (ICD-10 - F33.0) rx all sent 90 days continue therapy patient has made progress and improved in depression and anxiety, and continue therapy 1. major depression- stable DCFS 04/17/24 removal of children and returned 05/27/24 depression hx Abilify 10 mg at night for depression Sertraline 150 mg at bedtime for depression and anxiety aims= 0 04/11/25 educated on all medications, benefits, side effects and risk, and educated on depression, anxiety, and ADHD, mood d/o and educated on compliance of medications, appointment's, continue therapy discussion with patient about course of treatment and patient instructions. 2. Generalized anxiety disorder - stable Sertraline 150 mg daily Vistaril 25 mg three times a day as needed for anxiety and panic Medication Management and Follow-Up- Plan:- Schedule follow-up appointments every 2-3 months to monitor the patient's response to the medication regimen.- Reinforce the importance of avoiding recreational drug use due to potential neurotoxicity and interactions with prescribed medications. THERAPY conitnue 3. Chronic post-traumatic stress disorder - therapy stable 4. Attention deficit hyperactivity disorder, predominantly inattentive type - stable ADHD testing reviewed JANA-2 possible dxn, no age in childhood dxn per patient issues with test, stresses in home noted, treated computer test like video game no rx for ADHD prescribed r/t cannabis- not using will work on concentration and focus in therapy discuss Straterra - educated on rx - Straterra 40 mg daily in am no control substance prescribed r/t cannabis use educated on decrease cannabis and risk cannabis and medications http_s://www.nim[facility].n ih.gov/health/topic s/pkxsua-iyxfwl-emi ications http_s://www.[facility].o rg/Ozvlw-Tzxjzz-Hxv ness/Treatments/Men mme-Cmtrnz-Wsiakcpj ons http_s://www.[facility].o rg/Thqry-Qlclly-Mfh ness/Mental-Health- Conditions http_s://psychcentr al.com/depression/t br-garqepxum-jlmyrp aw-ba-pztzbmmugd#tr eatments http__s://www.nim[facility]. nih.gov/health/topi cs/oofwqu-fybdjl-dk dications http__s://www.[facility]. org/Hvkgd-Zijqwg-To lness/Treatments/Me yhyi-Magwwf-Qmdxgqj ions Recommend decrease/stop cannabis use as it may be negatively impacting mood, motivation, anxiety, sleep, focus; can also contribute to development of psychosis Patient educated on all medications including potential benefits, side effects, risks. Educated on proper dosing schedule and importance of compliance 5. Long-term drug therapy 06/10/2024 MDD (major depressive disorder), recurrent episode, mild (ICD-10 - F33.0) rx all sent 90 days 05/13/24 major depression- improved, stable DCFS 04/17/24 removal of children and returned 05/27/24 depression Abilify 10 mg at night for depression Sertraline 150 mg at bedtime for depression and anxiety disucss and educated on IOP program discuss [facility], [facility], [facility], [facility]- patient will check into IOP programs continue therapy will see weekly r/t post- educated on all medications, benefits, side effects and risk, and educated on depression, anxiety, and ADHD, mood d/o and educated on compliance of medications, appointment's, continue therapy discussion with patient about course of treatment and patient instructions. 2. Generalized anxiety disorder - improved and stable Sertraline 150 mg daily Vistaril 25 mg three times a day as needed for anxiety and panic Medication Management and Follow-Up- Plan:- Schedule follow-up appointments every 2-3 months to monitor the patient's response to the medication regimen.- Reinforce the importance of avoiding recreational drug use due to potential neurotoxicity and interactions with prescribed medications. THERAPY WEEKLY 3. Chronic post-traumatic stress disorder -therapy stable 4. Attention deficit hyperactivity disorder, predominantly inattentive type - stable ADHD testing reviewed JANA-2 possible dxn, no age in childhood dxn per patient issues with test, stresses in home noted, treated computer test like video game no rx for ADHD prescribed r/t cannabis- REPORTED USE OCCASIONAL will work on concentration and focus in therapy discuss Straterra - educated on rx - Straterra 40 mg daily in am no control substance prescribed r/t cannabis use educated on decrease cannabis and risk cannabis and medications http_s://www.[facility].n ih.gov/health/topic s/ozaijh-uuexae-dti ications http_s://www.[facility].o rg/Xiyly-Jvkmdp-Qlq ness/Treatments/Men mzz-Ichfrd-Geiygpiy ons http_s://www.[facility].o rg/Udksh-Buglvd-Cfo ness/Mental-Health- Conditions http_s://psychcentr [employer].com/depression/t an-ckperoreb-ekutor gm-in-irdezzqzde#tr eatments http__s://www.nim[facility]. nih.gov/health/topi cs/yicxbz-evopzr-fz dications http__s://www.[facility]. org/Wvtac-Qqgfrx-Nl lness/Treatments/Me yvpa-Argyvd-Deiqahv ions Recommend decrease/stop cannabis use as it may be negatively impacting mood, motivation, anxiety, sleep, focus; can also contribute to development of psychosis Patient educated on all medications including potential benefits, side effects, risks. Educated on proper dosing schedule and importance of compliance 5. Long-term drug therapy 09/05/2024 Generalized anxiety disorder (ICD-10 - F41.1) 06/10/2024 Generalized anxiety disorder (ICD-10 - F41.1) 05/27/2024 Post-traumatic stress disorder, chronic (ICD-10 - F43.12) Post-Traumatic Stress Disorder (PTSD): Care Instructions material was published, Post-Traumatic Stress Disorder (PTSD): Care Instructions material was published, Learning About PTSD After a Stay in the ICU material was published rx all sent 90 days today 05/13/24 recurrent major depression- DCFS 04/17/24 removal of children depression Abilify 10 mg at night for depression Sertraline 150 mg at bedtime for depression and anxiety disucss and educated on IOP program discuss [facility], [facility], [facility], [facility]- patient will check into IOP programs continue therapy will see WEEKLY NOW r/t post- educated on all medications, benefits, side effects and risk, and educated on depression, anxiety, and ADHD, mood d/o and educated on compliance of medications, appointment's, continue therapy discussion with patient about course of treatment and patient instructions. 2. Generalized anxiety disorder - Sertraline 150 mg daily Vistaril 25 mg three times a day as needed for anxiety and panic Medication Management and Follow-Up- Plan:- Schedule follow-up appointments every 2-3 months to monitor the patient's response to the medication regimen.- Reinforce the importance of avoiding recreational drug use due to potential neurotoxicity and interactions with prescribed medications. THERAPY WEEKLY 3. Chronic post-traumatic stress disorder -therapy 4. Attention deficit hyperactivity disorder, predominantly inattentive type - ADHD testing reviewed JANA-2 possible dxn, no age in childhood dxn per patient issues with test, stresses in home noted, treated computer test like video game no rx for ADHD prescribed r/t cannabis- REPORTED USE OCCASIONAL will work on concentration and focus in therapy discuss Straterra - educated on rx - Straterra 40 mg daily in am no control substance prescribed r/t cannabis use educated on decrease cannabis and risk cannabis and medications http_s://www.nim.n .gov/health/topic s/xxwoxm-kwosvr-ehb ications http_s://www.[facility].o rg/Mzecu-Mtsmaz-Vdx ness/Treatments/Men lkv-Zeagte-Quejbdbz ons http_s://www.[employer].o /Owhtp-Znptds-Raw ness/Mental-Health- Conditions http_s://[employer].com/depression/t jh-acpzmuehe-qnugow hd-fh-tiddpaubqh#tr eatments http__s://www.nim[facility]. nih.gov/health/topi cs/bckefo-usqccr-vr dications http__s://www.[facility]. org/Qdrrc-Raotdu-Sa lness/Treatments/Me gjog-Vahtnc-Psdjbxn ions Recommend decrease/stop cannabis use as it may be negatively impacting mood, motivation, anxiety, sleep, focus; can also contribute to development of psychosis Patient educated on all medications including potential benefits, side effects, risks. Educated on proper dosing schedule and importance of compliance 5. Long-term drug therapy 07/18/2024 Generalized anxiety disorder (ICD-10 - F41.1) 08/29/2024 Generalized anxiety disorder (ICD-10 - F41.1) 05/20/2024 Attention-defic it hyperactivity disorder, predominantly inattentive type (ICD-10 - F90.0) Learning About Attention Deficit Hyperactivity Disorder (ADHD) in Adults material was published, Attention Deficit Hyperactivity Disorder (ADHD) in Adults: Care Instructions material was published, Learning About Attention Deficit Hyperactivity Disorder (ADHD) in Adults material was published rx all sent 90 days today 05/13/24 recurrent major depression- DCFS 9/11/24 removal of children depression Abilify 10 mg at night for depression Increase Sertraline 150 mg at bedtime for depression and anxiety disucss and educated on IOP program discuss [facility], [facility], [facility]- patient will check into IOP programs continue therapy will see WEEKLY NOW r/t post- educated on all medications, benefits, side effects and risk, and educated on depression, anxiety, and ADHD, mood d/o and educated on compliance of medications, appointment's, continue therapy discussion with patient about course of treatment and patient instructions. 2. Generalized anxiety disorder - Sertraline 150 mg daily Vistaril 25 mg three times a day as needed for anxiety and panic Medication Management and Follow-Up- Plan:- Schedule follow-up appointments every 2-3 months to monitor the patient's response to the medication regimen.- Reinforce the importance of avoiding recreational drug use due to potential neurotoxicity and interactions with prescribed medications. THERAPY WEEKLY 3. Chronic post-traumatic stress disorder -therapy 4. Attention deficit hyperactivity disorder, predominantly inattentive type - ADHD testing reviewed JANA-2 possible dxn, no age in childhood dxn per patient issues with test, stresses in home noted, treated computer test like video game no rx for ADHD prescribed r/t cannabis- REPORTED USE OCCASIONAL will work on concentration and focus in therapy discuss Straterra - educated on rx - Straterra 40 mg daily in am no control substance prescribed r/t cannabis use educated on decrease cannabis and risk cannabis and medications http_s://www.nimh.n ih.gov/health/topic s/cxsgoh-lxuvsl-xbi ications http_s://www.[facility].o rg/Jkprj-Pxacza-Umf ness/Treatments/Men dsw-Leawne-Lhakvwly ons http_s://www.[facility].o rg/Ugewb-Lqaxle-Mmw ness/Mental-Health- Conditions http_s://psychcentr al.com/depression/t os-hejcvliyw-faxpch fm-me-cexvxgspyd#tr eatments http__s://www.nimh. nih.gov/health/topi cs/qambgo-dvvblw-sv dications http__s://www.[facility]. org/Vpcbk-Smwzap-Zd lness/Treatments/Me hfjd-Hqupyk-Mwlpxaw ions Recommend decrease/stop cannabis use as it may be negatively impacting mood, motivation, anxiety, sleep, focus; can also contribute to development of psychosis Patient educated on all medications including potential benefits, side effects, risks. Educated on proper dosing schedule and importance of compliance 5. Long-term drug therapy 05/13/2024 Post-traumatic stress disorder, chronic (ICD-10 - F43.12) Post-Traumatic Stress Disorder (PTSD): Care Instructions material was published, Post-Traumatic Stress Disorder (PTSD): Care Instructions material was published, Learning About PTSD After a Stay in the ICU material was published rx all sent 90 days today 05/13/24 recurrent major depression- DCFS 04/17/24 removal of children depression Abilify 10 mg at night for depression Sertraline 100 mg at bedtime for depression and anxiety disucss and educated on IOP program discuss [facility], [facility], [facility], [facility]- patient will check into IOP programs National Registry for Antidepressants www.[facility].o rg/tpyuogqs-ieg-xzd earch-programs/preg nancyregistry/antid epressants National Registry for Atypical Antipsychotics www. [facility]. org educated on medication, benefits, side effects and risk with and and mental health stabilityreviewed epocrates profile on all rx with patient continue therapy will see WEEKLY NOW r/t post- educated on all medications, benefits, side effects and risk, and educated on depression, anxiety, and ADHD, mood d/o and educated on compliance of medications, appointment's, continue therapy discussion with patient about course of treatment and patient instructions. 2. Generalized anxiety disorder - Sertraline 100 mg daily Vistaril 25 mg three times a day as needed for anxiety and panic Medication Management and Follow-Up- Plan:- Schedule follow-up appointments every 2-3 months to monitor the patient's response to the medication regimen.- Reinforce the importance of avoiding recreational drug use due to potential neurotoxicity and interactions with prescribed medications. THERAPY WEEKLY 3. Chronic post-traumatic stress disorder -therapy 4. Attention deficit hyperactivity disorder, predominantly inattentive type - ADHD testing reviewed JANA-2 possible dxn, no age in childhood dxn per patient issues with test, stresses in home noted, treated computer test like video game no rx for ADHD prescribed r/t cannabis- REPORTED USE OCCASIONAL will work on concentration and focus in therapy discuss Straterra - educated on rx - Straterra 40 mg daily in am no control substance prescribed r/t cannabis use educated on decrease cannabis and risk cannabis and medications http_s://www.nim.n .gov/health/topic s/snvwex-qfzckl-jgd ications http_s://www.[facility].o rg/Ymqju-Pocjet-Tfm ness/Treatments/Men chw-Zvgkys-Kqzskguz ons http_s://www.[facility].o rg/Lkfgx-Urzybi-Zdt ness/Mental-Health- Conditions http_s://psychOn-Q-ity.com/depression/t be-ewnkqclkc-jhlnlv ss-hg-hjkibqswpn#tr eatments http__s://www.nimh. nih.gov/health/topi cs/tyxzfe-acgnen-fy dications http__s://www.[facility]. org/Ueocu-Rvcvsy-Vc lness/Treatments/Me qlyc-Idjpwl-Dhshuzl ions Recommend decrease/stop cannabis use as it may be negatively impacting mood, motivation, anxiety, sleep, focus; can also contribute to development of psychosis Patient educated on all medications including potential benefits, side effects, risks. Educated on proper dosing schedule and importance of compliance 5. Long-term drug therapy 05/13/2024 Other skilled nursing (current) drug therapy (ICD-10 - Z79.899) Medication Refill: Care Instructions material was published, Medication Refill: Care Instructions material was published rx all sent 90 days today 05/13/24 recurrent major depression- DCFS 04/17/24 removal of children depression Abilify 10 mg at night for depression Sertraline 100 mg at bedtime for depression and anxiety disucss and educated on IOP program discuss [facility], [facility], [facility], [facility]- patient will check into IOP programs National Registry for Antidepressants www.[facility].o /ewbmfbod-ruj-vjp earch-programs/preg nancyregistry/antid epressants National Registry for Atypical Antipsychotics www. [facility]. org educated on medication, benefits, side effects and risk with and and mental health stabilityreviewed epocrates profile on all rx with patient continue therapy will see WEEKLY NOW r/t post- educated on all medications, benefits, side effects and risk, and educated on depression, anxiety, and ADHD, mood d/o and educated on compliance of medications, appointment's, continue therapy discussion with patient about course of treatment and patient instructions. 2. Generalized anxiety disorder - Sertraline 100 mg daily Vistaril 25 mg three times a day as needed for anxiety and panic Medication Management and Follow-Up- Plan:- Schedule follow-up appointments every 2-3 months to monitor the patient's response to the medication regimen.- Reinforce the importance of avoiding recreational drug use due to potential neurotoxicity and interactions with prescribed medications. THERAPY WEEKLY 3. Chronic post-traumatic stress disorder -therapy 4. Attention deficit hyperactivity disorder, predominantly inattentive type - ADHD testing reviewed JANA-2 possible dxn, no age in childhood dxn per patient issues with test, stresses in home noted, treated computer test like video game no rx for ADHD prescribed r/t cannabis- REPORTED USE OCCASIONAL will work on concentration and focus in therapy discuss Straterra - educated on rx - Straterra 40 mg daily in am no control substance prescribed r/t cannabis use educated on decrease cannabis and risk cannabis and medications http_s://www.nimh.n ih.gov/health/topic s/jwfdvf-mwfozt-ilt ications http_s://www.[facility].o /Nmqpe-Zsdyty-Kdf ness/Treatments/Men ohq-Vlfhei-Swxhfvxj ons http_s://www.[facility].o /Rihfr-Sehpbj-Uta ness/Mental-Health- Conditions http_s://psychcentr [employer].com/depression/t zd-fuedgaduw-vpkyrv zv-rx-uxdugcbizh#tr eatments http__s://www.nimh. nih.gov/health/topi cs/ndakrp-dtqoyi-pn dications http__s://www.[facility]. org/Penaz-Ixiecm-Dx lness/Treatments/Me hjng-Iqheha-Uvlbenc ions Recommend decrease/stop cannabis use as it may be negatively impacting mood, motivation, anxiety, sleep, focus; can also contribute to development of psychosis Patient educated on all medications including potential benefits, side effects, risks. Educated on proper dosing schedule and importance of compliance 5. Long-term drug therapy 05/20/2024 Post-traumatic stress disorder, chronic (ICD-10 - F43.12) Post-Traumatic Stress Disorder (PTSD): Care Instructions material was published, Post-Traumatic Stress Disorder (PTSD): Care Instructions material was published, Learning About PTSD After a Stay in the ICU material was published rx all sent 90 days today 05/13/24 recurrent major depression- DCFS 04/17/24 removal of children depression Abilify 10 mg at night for depression Increase Sertraline 150 mg at bedtime for depression and anxiety disucss and educated on IOP program discuss [facility], [facility], [facility]- patient will check into IOP programs continue therapy will see WEEKLY NOW r/t post- educated on all medications, benefits, side effects and risk, and educated on depression, anxiety, and ADHD, mood d/o and educated on compliance of medications, appointment's, continue therapy discussion with patient about course of treatment and patient instructions. 2. Generalized anxiety disorder - Sertraline 150 mg daily Vistaril 25 mg three times a day as needed for anxiety and panic Medication Management and Follow-Up- Plan:- Schedule follow-up appointments every 2-3 months to monitor the patient's response to the medication regimen.- Reinforce the importance of avoiding recreational drug use due to potential neurotoxicity and interactions with prescribed medications. THERAPY WEEKLY 3. Chronic post-traumatic stress disorder -therapy 4. Attention deficit hyperactivity disorder, predominantly inattentive type - ADHD testing reviewed JANA-2 possible dxn, no age in childhood dxn per patient issues with test, stresses in home noted, treated computer test like video game no rx for ADHD prescribed r/t cannabis- REPORTED USE OCCASIONAL will work on concentration and focus in therapy discuss Straterra - educated on rx - Straterra 40 mg daily in am no control substance prescribed r/t cannabis use educated on decrease cannabis and risk cannabis and medications http_s://www.nimh.n ih.gov/health/topic s/gipypy-njduyo-uox ications http_s://www.[facility].o rg/Ivdta-Gfzfxe-Asm ness/Treatments/Men lgp-Dcvbfz-Erddvpnk ons http_s://www.[facility].o rg/Lgfap-Jlkmiq-Von ness/Mental-Health- Conditions http_s://psychcentr [employer].com/depression/t cq-zbvelpsdk-gegxgr wn-ay-aopznxwyyw#tr eatments http__s://www.nimh. nih.gov/health/topi cs/jcwgje-zsczjx-wt dications http__s://www.[facility]. org/Giatt-Rzgyjp-Ga lness/Treatments/Me gfbj-Tjenqh-Otxksom ions Recommend decrease/stop cannabis use as it may be negatively impacting mood, motivation, anxiety, sleep, focus; can also contribute to development of psychosis Patient educated on all medications including potential benefits, side effects, risks. Educated on proper dosing schedule and importance of compliance 5. 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 (ICD-10 - Z79.899) Medication Refill: Care Instructions material was published, Medication Refill: Care Instructions material was published rx all sent 90 days today 05/13/24 recurrent major depression- DCFS 04/17/24 removal of children depression Abilify 10 mg at night for depression Sertraline 150 mg at bedtime for depression and anxiety disucss and educated on IOP program discuss [facility], [facility], [facility], [facility]- patient will check into IOP programs continue therapy will see WEEKLY NOW r/t post- educated on all medications, benefits, side effects and risk, and educated on depression, anxiety, and ADHD, mood d/o and educated on compliance of medications, appointment's, continue therapy discussion with patient about course of treatment and patient instructions. 2. Generalized anxiety disorder - Sertraline 150 mg daily Vistaril 25 mg three times a day as needed for anxiety and panic Medication Management and Follow-Up- Plan:- Schedule follow-up appointments every 2-3 months to monitor the patient's response to the medication regimen.- Reinforce the importance of avoiding recreational drug use due to potential neurotoxicity and interactions with prescribed medications. THERAPY WEEKLY 3. Chronic post-traumatic stress disorder -therapy 4. Attention deficit hyperactivity disorder, predominantly inattentive type - ADHD testing reviewed JANA-2 possible dxn, no age in childhood dxn per patient issues with test, stresses in home noted, treated computer test like video game no rx for ADHD prescribed r/t cannabis- REPORTED USE OCCASIONAL will work on concentration and focus in therapy discuss Straterra - educated on rx - Straterra 40 mg daily in am no control substance prescribed r/t cannabis use educated on decrease cannabis and risk cannabis and medications http_s://www.nim.n .gov/health/topic s/ndmbfo-dyhdqc-uxv ications http_s://www.[facility].o rg/Ebvyo-Ykqkvx-Enr ness/Treatments/Men gxy-Loiymb-Hapuysqt ons http_s://www.[facility].o rg/Jcunz-Ygfkda-Ldt ness/Mental-Health- Conditions http_s://[employer]/depression/t al-gpdbyypxp-zkhdzp uo-lj-crhandilzk#tr eatments http__s://www.nimh. nih.gov/health/topi cs/dwcjjz-qphnlm-fn dications http__s://www.[facility]. org/Acluz-Egvhtn-Dv lness/Treatments/Me vedx-Owtaso-Oozqfyk ions Recommend decrease/stop cannabis use as it may be negatively impacting mood, motivation, anxiety, sleep, focus; can also contribute to development of psychosis Patient educated on all medications including potential benefits, side effects, risks. Educated on proper dosing schedule and importance of compliance 5. Long-term drug therapy 06/10/2024 Post-traumatic stress disorder, chronic (ICD-10 - F43.12) Post-Traumatic Stress Disorder (PTSD): Care Instructions material was published, Post-Traumatic Stress Disorder (PTSD): Care Instructions material was published, Learning About PTSD After a Stay in the ICU material was published rx all sent 90 days 05/13/24 major depression- improved, stable DCFS 04/17/24 removal of children and returned 05/27/24 depression Abilify 10 mg at night for depression Sertraline 150 mg at bedtime for depression and anxiety disucss and educated on IOP program discuss [facility], [facility], [facility], [facility]- patient will check into IOP programs continue therapy will see weekly r/t post- educated on all medications, benefits, side effects and risk, and educated on depression, anxiety, and ADHD, mood d/o and educated on compliance of medications, appointment's, continue therapy discussion with patient about course of treatment and patient instructions. 2. Generalized anxiety disorder - improved and stable Sertraline 150 mg daily Vistaril 25 mg three times a day as needed for anxiety and panic Medication Management and Follow-Up- Plan:- Schedule follow-up appointments every 2-3 months to monitor the patient's response to the medication regimen.- Reinforce the importance of avoiding recreational drug use due to potential neurotoxicity and interactions with prescribed medications. THERAPY WEEKLY 3. Chronic post-traumatic stress disorder -therapy stable 4. Attention deficit hyperactivity disorder, predominantly inattentive type - stable ADHD testing reviewed JANA-2 possible dxn, no age in childhood dxn per patient issues with test, stresses in home noted, treated computer test like video game no rx for ADHD prescribed r/t cannabis- REPORTED USE OCCASIONAL will work on concentration and focus in therapy discuss Straterra - educated on rx - Straterra 40 mg daily in am no control substance prescribed r/t cannabis use educated on decrease cannabis and risk cannabis and medications http_s://www.nim.n .gov/health/topic s/vkjwdf-awoqse-fpk ications http_s://www.[facility].o /Ufpbn-Jfxpmt-Jyu ness/Treatments/Men wop-Ycdphu-Fhgwosgd ons http_s://www.[facility].o /Swzwt-Oupfin-Mpr ness/Mental-Health- Conditions http_s://psychcentr [employer].com/depression/t px-ktepmbbxc-dqgogn rh-ht-oqbekqmfzr#tr eatments http__s://www.nimh. nih.gov/health/topi cs/pgccja-ksztvm-yd dications http__s://www.[facility]. org/Pxpgy-Ykcltx-Cy lness/Treatments/Me ngjn-Iontow-Feylkbe ions Recommend decrease/stop cannabis use as it may be negatively impacting mood, motivation, anxiety, sleep, focus; can also contribute to development of psychosis Patient educated on all medications including potential benefits, side effects, risks. Educated on proper dosing schedule and importance of compliance 5. 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 major depression- stable DCFS 04/17/24 removal of children and returned 05/27/24 depression hx Abilify 10 mg at night for depression Sertraline 150 mg at bedtime for depression and anxiety aims= 0 04/11/25 educated on all medications, benefits, side effects and risk, and educated on depression, anxiety, and ADHD, mood d/o and educated on compliance of medications, appointment's, continue therapy discussion with patient about course of treatment and patient instructions. 2. Generalized anxiety disorder - stable Sertraline 150 mg daily Vistaril 25 mg three times a day as needed for anxiety and panic Medication Management and Follow-Up- Plan:- Schedule follow-up appointments every 2-3 months to monitor the patient's response to the medication regimen.- Reinforce the importance of avoiding recreational drug use due to potential neurotoxicity and interactions with prescribed medications. THERAPY conitnue 3. Chronic post-traumatic stress disorder - therapy stable 4. Attention deficit hyperactivity disorder, predominantly inattentive type - stable ADHD testing reviewed JANA-2 possible dxn, no age in childhood dxn per patient issues with test, stresses in home noted, treated computer test like video game no rx for ADHD prescribed r/t cannabis- not using will work on concentration and focus in therapy discuss Straterra - educated on rx - Straterra 40 mg daily in am no control substance prescribed r/t cannabis use educated on decrease cannabis and risk cannabis and medications http_s://www.nimh.n ih.gov/health/topic s/dvpeox-nqusom-uko ications http_s://www.[facility].o rg/Bitvt-Qkktcw-Kgi ness/Treatments/Men ink-Sfbswu-Vlftvkol ons http_s://www.[facility].o rg/Bqxwh-Axduxt-Zct ness/Mental-Health- Conditions http_s://psychcentr al.com/depression/t ar-ckgeqdauq-tstovk zg-uf-jwgnbsjkco#tr eatments http__s://www.nimh. nih.gov/health/topi cs/pfkpau-iwlghk-gg dications http__s://www.[facility]. org/Tgyex-Tihhoy-Vt lness/Treatments/Me olmb-Vuvrqt-Cwfmzfm ions Recommend decrease/stop cannabis use as it may be negatively impacting mood, motivation, anxiety, sleep, focus; can also contribute to development of psychosis Patient educated on all medications including potential benefits, side effects, risks. Educated on proper dosing schedule and importance of compliance 5. Long-term drug therapy 09/02/2024 Post-traumatic stress disorder, chronic (ICD-10 - F43.12) Post-Traumatic Stress Disorder (PTSD): Care Instructions material was published, Post-Traumatic Stress Disorder (PTSD): Care Instructions material was published, Learning About PTSD After a Stay in the ICU material was published rx all sent 90 days 09/02/24 continue therapy patient has made progress and improved in depression and anxiety, and continue therapy major depression- improved, stable DCFS 04/17/24 removal of children and returned 05/27/24 depression hx Abilify 10 mg at night for depression Sertraline 150 mg at bedtime for depression and anxiety patient has made good progress and been in therapy and complaince with all appointments and medications, she is stable on rx and ok to schedule every 1-2 months appointments educated on all medications, benefits, side effects and risk, and educated on depression, anxiety, and ADHD, mood d/o and educated on compliance of medications, appointment's, continue therapy discussion with patient about course of treatment and patient instructions. 2. Generalized anxiety disorder - improved and stable Sertraline 150 mg daily Vistaril 25 mg three times a day as needed for anxiety and panic Medication Management and Follow-Up- Plan:- Schedule follow-up appointments every 2-3 months to monitor the patient's response to the medication regimen.- Reinforce the importance of avoiding recreational drug use due to potential neurotoxicity and interactions with prescribed medications. THERAPY conitnue 3. Chronic post-traumatic stress disorder -therapy stable 4. Attention deficit hyperactivity disorder, predominantly inattentive type - stable ADHD testing reviewed JANA-2 possible dxn, no age in childhood dxn per patient issues with test, stresses in home noted, treated computer test like video game no rx for ADHD prescribed r/t cannabis- not using will work on concentration and focus in therapy discuss Straterra - educated on rx - Straterra 40 mg daily in am no control substance prescribed r/t cannabis use educated on decrease cannabis and risk cannabis and medications http_s://www.nimh.n ih.gov/health/topic s/pnatoo-jmketc-zvs ications http_s://www.[facility].o rg/Xsqdn-Omcxzs-Wmg ness/Treatments/Men pgn-Gegssr-Ertjkqgo ons http_s://www.[facility].o rg/Lojaw-Drtelg-Pac ness/Mental-Health- Conditions http_s://psych[employer].com/depression/t wa-bgpbtlpat-gwvmpf yy-jt-tttthjvgak#tr eatments http__s://www.nimh. nih.gov/health/topi cs/oxowep-xgplsg-wq dications http__s://www.[facility]. org/Bgjxs-Oaufyy-Fn lness/Treatments/Me dcmg-Ttutkd-Fplnjjd ions Recommend decrease/stop cannabis use as it may be negatively impacting mood, motivation, anxiety, sleep, focus; can also contribute to development of psychosis Patient educated on all medications including potential benefits, side effects, risks. Educated on proper dosing schedule and importance of compliance 5. Long-term drug therapy 08/26/2024 Post-traumatic stress disorder, chronic (ICD-10 - F43.12) Post-Traumatic Stress Disorder (PTSD): Care Instructions material was published, Post-Traumatic Stress Disorder (PTSD): Care Instructions material was published, Learning About PTSD After a Stay in the ICU material was published rx all sent 90 days 07/09/24 continue therapy patient has made progress and improved in depression and anxiety, and continue therapy major depression- improved, stable DCFS 04/17/24 removal of children and returned 05/27/24 depression hx Abilify 10 mg at night for depression Sertraline 150 mg at bedtime for depression and anxiety patient has made good progress and been in therapy and complaince with all appointments and medications, she is stable on rx and ok to schedule every 1-2 months appointments educated on all medications, benefits, side effects and risk, and educated on depression, anxiety, and ADHD, mood d/o and educated on compliance of medications, appointment's, continue therapy discussion with patient about course of treatment and patient instructions. 2. Generalized anxiety disorder - improved and stable Sertraline 150 mg daily Vistaril 25 mg three times a day as needed for anxiety and panic Medication Management and Follow-Up- Plan:- Schedule follow-up appointments every 2-3 months to monitor the patient's response to the medication regimen.- Reinforce the importance of avoiding recreational drug use due to potential neurotoxicity and interactions with prescribed medications. THERAPY conitnue 3. Chronic post-traumatic stress disorder -therapy stable 4. Attention deficit hyperactivity disorder, predominantly inattentive type - stable ADHD testing reviewed JANA-2 possible dxn, no age in childhood dxn per patient issues with test, stresses in home noted, treated computer test like video game no rx for ADHD prescribed r/t cannabis- not using will work on concentration and focus in therapy discuss Straterra - educated on rx - Straterra 40 mg daily in am no control substance prescribed r/t cannabis use educated on decrease cannabis and risk cannabis and medications http_s://www.[facility].n .gov/health/topic s/kcxlix-ncplsz-tai ications http_s://www.[facility].o /Puzzz-Xtcjaj-Pae ness/Treatments/Men sxt-Idpegj-Lpoedrzk ons http_s://www.[employer].o /Okycf-Ksengu-Kda ness/Mental-Health- Conditions http_s://psychcentr [employer].com/depression/t bn-ygdcynrdg-lfgzux wx-ku-buckvavhfb#tr eatments http__s://www.nimh. nih.gov/health/topi cs/ttsawo-nddeix-cl dications http__s://www.[facility]. org/Emazc-Gmeubw-Oi lness/Treatments/Me gzix-Ptkbgx-Rzppxpv ions Recommend decrease/stop cannabis use as it may be negatively impacting mood, motivation, anxiety, sleep, focus; can also contribute to development of psychosis Patient educated on all medications including potential benefits, side effects, risks. Educated on proper dosing schedule and importance of compliance 5. 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 therapy (ICD-10 - Z79.899) Medication Refill: Care Instructions material was published, Medication Refill: Care Instructions material was published rx all sent 90 days 07/09/24 continue therapy patient has made progress and improved in depression and anxiety, and continue therapy major depression- improved, stable DCFS 04/17/24 removal of children and returned 05/27/24 depression hx Abilify 10 mg at night for depression Sertraline 150 mg at bedtime for depression and anxiety patient has made good progress and been in therapy and complaince with all appointments and medications, she is stable on rx and ok to schedule every 1-2 months appointments educated on all medications, benefits, side effects and risk, and educated on depression, anxiety, and ADHD, mood d/o and educated on compliance of medications, appointment's, continue therapy discussion with patient about course of treatment and patient instructions. 2. Generalized anxiety disorder - improved and stable Sertraline 150 mg daily Vistaril 25 mg three times a day as needed for anxiety and panic Medication Management and Follow-Up- Plan:- Schedule follow-up appointments every 2-3 months to monitor the patient's response to the medication regimen.- Reinforce the importance of avoiding recreational drug use due to potential neurotoxicity and interactions with prescribed medications. THERAPY conitnue 3. Chronic post-traumatic stress disorder -therapy stable 4. Attention deficit hyperactivity disorder, predominantly inattentive type - stable ADHD testing reviewed JANA-2 possible dxn, no age in childhood dxn per patient issues with test, stresses in home noted, treated computer test like video game no rx for ADHD prescribed r/t cannabis- not using will work on concentration and focus in therapy discuss Straterra - educated on rx - Straterra 40 mg daily in am no control substance prescribed r/t cannabis use educated on decrease cannabis and risk cannabis and medications http_s://www.nimh.n ih.gov/health/topic s/rtoafr-zxbbbk-mmv ications http_s://www.[facility].o /Votfr-Evujbn-Icv ness/Treatments/Men wxk-Eykwng-Cmibffsb ons http_s://www.[facility].o /Pwuit-Ccwoix-Ikj ness/Mental-Health- Conditions http_s://psychcentr [employer].com/depression/t tr-wshnvfacc-cbpbbj ih-lw-tfgeenqlkz#tr eatments http__s://www.nimh. nih.gov/health/topi cs/pyfwwp-bxmhol-ks dications http__s://www.[facility]. org/Ckzhb-Taltyo-Wx lness/Treatments/Me bzzg-Gjvnqf-Olsaiuf ions Recommend decrease/stop cannabis use as it may be negatively impacting mood, motivation, anxiety, sleep, focus; can also contribute to development of psychosis Patient educated on all medications including potential benefits, side effects, risks. Educated on proper dosing schedule and importance of compliance 5. Long-term drug therapy 08/05/2024 Post-traumatic stress disorder, chronic (ICD-10 - F43.12) Post-Traumatic Stress Disorder (PTSD): Care Instructions material was published, Post-Traumatic Stress Disorder (PTSD): Care Instructions material was published, Learning About PTSD After a Stay in the ICU material was published rx all sent 90 days 07/09/24 continue therapy patient has made progress and improved in depression and anxiety, major depression- improved, stable DCFS 04/17/24 removal of children and returned 05/27/24 depression hx Abilify 10 mg at night for depression Sertraline 150 mg at bedtime for depression and anxiety patient has made good progress and been in therapy and complaince with all appointments and medications, educated on all medications, benefits, side effects and risk, and educated on depression, anxiety, and ADHD, mood d/o and educated on compliance of medications, appointment's, continue therapy discussion with patient about course of treatment and patient instructions. 2. Generalized anxiety disorder - improved and stable Sertraline 150 mg daily Vistaril 25 mg three times a day as needed for anxiety and panic Medication Management and Follow-Up- Plan:- Schedule follow-up appointments every 2-3 months to monitor the patient's response to the medication regimen.- Reinforce the importance of avoiding recreational drug use due to potential neurotoxicity and interactions with prescribed medications. THERAPY conitnue 3. Chronic post-traumatic stress disorder -therapy stable 4. Attention deficit hyperactivity disorder, predominantly inattentive type - stable ADHD testing reviewed JANA-2 possible dxn, no age in childhood dxn per patient issues with test, stresses in home noted, treated computer test like video game no rx for ADHD prescribed r/t cannabis- not using will work on concentration and focus in therapy discuss Straterra - educated on rx - Straterra 40 mg daily in am no control substance prescribed r/t cannabis use educated on decrease cannabis and risk cannabis and medications http_s://www.nimh.n ih.gov/health/topic s/idstka-guevtl-zdr ications http_s://www.[facility].o rg/Pritq-Xwguns-Kkv ness/Treatments/Men yxk-Bjqvdu-Ahqkumam ons http_s://www.[facility].o rg/Mddxg-Pazngy-Cam ness/Mental-Health- Conditions http_s://psychcentr al.com/depression/t vs-ajnplogof-fhanso wx-yl-fjvpnvemso#tr eatments http__s://www.nimh. nih.gov/health/topi cs/pqdoph-cgsamj-me dications http__s://www.[facility]. org/Hmdkw-Nxoxrq-St lness/Treatments/Me yayt-Nhnzxn-Tlkxpmy ions Recommend decrease/stop cannabis use as it may be negatively impacting mood, motivation, anxiety, sleep, focus; can also contribute to development of psychosis Patient educated on all medications including potential benefits, side effects, risks. Educated on proper dosing schedule and importance of compliance 5. Long-term drug therapy 07/29/2024 Post-traumatic stress disorder, chronic (ICD-10 - F43.12) Post-Traumatic Stress Disorder (PTSD): Care Instructions material was published, Post-Traumatic Stress Disorder (PTSD): Care Instructions material was published, Learning About PTSD After a Stay in the ICU material was published rx all sent 90 days 07/09/24 continue therapy patient has made progress and improved in depression and anxiety, major depression- improved, stable DCFS 04/17/24 removal of children and returned 05/27/24 depression hx Abilify 10 mg at night for depression Sertraline 150 mg at bedtime for depression and anxiety patient has made good progress and been in therapy and complaince with all appointments and medications, educated on all medications, benefits, side effects and risk, and educated on depression, anxiety, and ADHD, mood d/o and educated on compliance of medications, appointment's, continue therapy discussion with patient about course of treatment and patient instructions. 2. Generalized anxiety disorder - improved and stable Sertraline 150 mg daily Vistaril 25 mg three times a day as needed for anxiety and panic Medication Management and Follow-Up- Plan:- Schedule follow-up appointments every 2-3 months to monitor the patient's response to the medication regimen.- Reinforce the importance of avoiding recreational drug use due to potential neurotoxicity and interactions with prescribed medications. THERAPY conitnue 3. Chronic post-traumatic stress disorder -therapy stable 4. Attention deficit hyperactivity disorder, predominantly inattentive type - stable ADHD testing reviewed JANA-2 possible dxn, no age in childhood dxn per patient issues with test, stresses in home noted, treated computer test like video game no rx for ADHD prescribed r/t cannabis- REPORTED USE OCCASIONAL and none recently will work on concentration and focus in therapy discuss Straterra - educated on rx - Straterra 40 mg daily in am no control substance prescribed r/t cannabis use educated on decrease cannabis and risk cannabis and medications http_s://www.nimh.n ih.gov/health/topic s/dlnkkh-ljneii-eif ications http_s://www.[facility].o rg/Mkibk-Itnzhp-Hza ness/Treatments/Men amg-Xxuiiu-Cfuwrlnn ons http_s://www.[facility].o /Kmsxe-Fyradk-Wur ness/Mental-Health- Conditions http_s://psychSopogyr [employer].com/depression/t is-fvysrxdsl-lpbjlh hl-jy-jlhbmmyxsv#tr eatments http__s://www.nimh. nih.gov/health/topi cs/wkmgob-fzqpyd-yj dications http__s://www.[facility]. org/Tcqac-Mmvnbw-Bm lness/Treatments/Me degr-Lyktfp-Tfafpgr ions Recommend decrease/stop cannabis use as it may be negatively impacting mood, motivation, anxiety, sleep, focus; can also contribute to development of psychosis Patient educated on all medications including potential benefits, side effects, risks. Educated on proper dosing schedule and importance of compliance 5. Long-term drug therapy 07/16/2024 Post-traumatic stress disorder, chronic (ICD-10 - F43.12) Post-Traumatic Stress Disorder (PTSD): Care Instructions material was published, Post-Traumatic Stress Disorder (PTSD): Care Instructions material was published, Learning About PTSD After a Stay in the ICU material was published rx all sent 90 days 07/09/24 continue therapy patient has made progress and improved in depression and anxiety, major depression- improved, stable DCFS 04/17/24 removal of children and returned 05/27/24 depression Abilify 10 mg at night for depression Sertraline 150 mg at bedtime for depression and anxiety educated on all medications, benefits, side effects and risk, and educated on depression, anxiety, and ADHD, mood d/o and educated on compliance of medications, appointment's, continue therapy discussion with patient about course of treatment and patient instructions. 2. Generalized anxiety disorder - improved and stable Sertraline 150 mg daily Vistaril 25 mg three times a day as needed for anxiety and panic Medication Management and Follow-Up- Plan:- Schedule follow-up appointments every 2-3 months to monitor the patient's response to the medication regimen.- Reinforce the importance of avoiding recreational drug use due to potential neurotoxicity and interactions with prescribed medications. THERAPY conitnue 3. Chronic post-traumatic stress disorder -therapy stable 4. Attention deficit hyperactivity disorder, predominantly inattentive type - stable ADHD testing reviewed JANA-2 possible dxn, no age in childhood dxn per patient issues with test, stresses in home noted, treated computer test like video game no rx for ADHD prescribed r/t cannabis- REPORTED USE OCCASIONAL and none recently will work on concentration and focus in therapy discuss Straterra - educated on rx - Straterra 40 mg daily in am no control substance prescribed r/t cannabis use educated on decrease cannabis and risk cannabis and medications http_s://www.[facility].gov/health/topic s/euqlfq-izdrfe-uxi ications http_s://www.[facility].o /Hbfxr-Heghll-Ebc ness/Treatments/Men emk-Dssxje-Wgeyalxy ons http_s://www.[facility].o /Dlfxk-Emxlxs-Lsi ness/Mental-Health- Conditions http_s://psychSopogyr [employer].com/depression/t up-azcantsum-qtahaj sw-nh-ygfttedyge#tr eatments http__s://www.nimh. nih.gov/health/topi cs/wshhir-cbgiog-ns dications http__s://www.[facility]. org/Oyeao-Mjcpqn-Aj lness/Treatments/Me lyqo-Hcyeqg-Sciquaw ions Recommend decrease/stop cannabis use as it may be negatively impacting mood, motivation, anxiety, sleep, focus; can also contribute to development of psychosis Patient educated on all medications including potential benefits, side effects, risks. Educated on proper dosing schedule and importance of compliance 5. Long-term drug therapy 07/09/2024 Post-traumatic stress disorder, chronic (ICD-10 - F43.12) Post-Traumatic Stress Disorder (PTSD): Care Instructions material was published, Post-Traumatic Stress Disorder (PTSD): Care Instructions material was published, Learning About PTSD After a Stay in the ICU material was published rx all sent 90 days 07/09/24 continue therapy major depression- improved, stable DCFS 04/17/24 removal of children and returned 05/27/24 depression Abilify 10 mg at night for depression Sertraline 150 mg at bedtime for depression and anxiety disucss and educated on IOP program discuss [facility], [facility], [facility]- patient will check into IOP programs continue therapy will see weekly r/t post- educated on all medications, benefits, side effects and risk, and educated on depression, anxiety, and ADHD, mood d/o and educated on compliance of medications, appointment's, continue therapy discussion with patient about course of treatment and patient instructions. 2. Generalized anxiety disorder - improved and stable Sertraline 150 mg daily Vistaril 25 mg three times a day as needed for anxiety and panic Medication Management and Follow-Up- Plan:- Schedule follow-up appointments every 2-3 months to monitor the patient's response to the medication regimen.- Reinforce the importance of avoiding recreational drug use due to potential neurotoxicity and interactions with prescribed medications. THERAPY WEEKLY 3. Chronic post-traumatic stress disorder -therapy stable 4. Attention deficit hyperactivity disorder, predominantly inattentive type - stable ADHD testing reviewed JANA-2 possible dxn, no age in childhood dxn per patient issues with test, stresses in home noted, treated computer test like video game no rx for ADHD prescribed r/t cannabis- REPORTED USE OCCASIONAL will work on concentration and focus in therapy discuss Straterra - educated on rx - Straterra 40 mg daily in am no control substance prescribed r/t cannabis use educated on decrease cannabis and risk cannabis and medications http_s://www.nimh.n ih.gov/health/topic s/nmejlp-sxtsnb-csm ications http_s://www.[facility].o rg/Ubawr-Repvwr-Adw ness/Treatments/Men ysx-Djgbcn-Mwfqxhtf ons http_s://www.[facility].o rg/Ebitc-Lejpuy-Dpx ness/Mental-Health- Conditions http_s://psychcentr [employer].com/depression/t kg-qfdgrgkyh-wmhsnx bz-fa-eekcmopgqi#tr eatments http__s://www.nimh. nih.gov/health/topi cs/hyepjk-iddvrf-wv dications http__s://www.[facility]. org/Pthfw-Hsswud-Cz lness/Treatments/Me tqlb-Meifif-Iwgpmjb ions Recommend decrease/stop cannabis use as it may be negatively impacting mood, motivation, anxiety, sleep, focus; can also contribute to development of psychosis Patient educated on all medications including potential benefits, side effects, risks. Educated on proper dosing schedule and importance of compliance 5. 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) Medication Refill: Care Instructions material was published, Medication Refill: Care Instructions material was published rx all sent 90 days 05/13/24 major depression- DCFS 04/17/24 removal of children and returned 05/27/24 depression Abilify 10 mg at night for depression Sertraline 150 mg at bedtime for depression and anxiety disucss and educated on IOP program discuss [facility], [facility], [facility], [facility]- patient will check into IOP programs continue therapy will see weekly r/t post- educated on all medications, benefits, side effects and risk, and educated on depression, anxiety, and ADHD, mood d/o and educated on compliance of medications, appointment's, continue therapy discussion with patient about course of treatment and patient instructions. 2. Generalized anxiety disorder - Sertraline 150 mg daily Vistaril 25 mg three times a day as needed for anxiety and panic Medication Management and Follow-Up- Plan:- Schedule follow-up appointments every 2-3 months to monitor the patient's response to the medication regimen.- Reinforce the importance of avoiding recreational drug use due to potential neurotoxicity and interactions with prescribed medications. THERAPY WEEKLY 3. Chronic post-traumatic stress disorder -therapy 4. Attention deficit hyperactivity disorder, predominantly inattentive type - ADHD testing reviewed JANA-2 possible dxn, no age in childhood dxn per patient issues with test, stresses in home noted, treated computer test like video game no rx for ADHD prescribed r/t cannabis- REPORTED USE OCCASIONAL will work on concentration and focus in therapy discuss Straterra - educated on rx - Straterra 40 mg daily in am no control substance prescribed r/t cannabis use educated on decrease cannabis and risk cannabis and medications http_s://www.nimh.n ih.gov/health/topic s/mwvxps-npblzr-qpb ications http_s://www.[facility].o rg/Bzqno-Mayvci-Kla ness/Treatments/Men pct-Aijxgw-Wozownkw ons http_s://www.[facility].o rg/Qahdm-Cdvgzf-Fes ness/Mental-Health- Conditions http_s://psychcentr [employer].com/depression/t wg-lkdikhfoo-psndzn bf-zy-byhghxnrry#tr eatments http__s://www.nimh. nih.gov/health/topi cs/ldbzco-qugipq-wu dications http__s://www.[facility]. org/Gpvuk-Kxqwjn-Mq lness/Treatments/Me ctfp-Twkcjc-Paoonxs ions Recommend decrease/stop cannabis use as it may be negatively impacting mood, motivation, anxiety, sleep, focus; can also contribute to development of psychosis Patient educated on all medications including potential benefits, side effects, risks. Educated on proper dosing schedule and importance of compliance 5. Long-term drug therapy 06/21/2024 Post-traumatic stress disorder, chronic (ICD-10 - F43.12) Post-Traumatic Stress Disorder (PTSD): Care Instructions material was published, Post-Traumatic Stress Disorder (PTSD): Care Instructions material was published, Learning About PTSD After a Stay in the ICU material was published rx all sent 90 days 05/13/24 continue therapy major depression- improved, stable DCFS 04/17/24 removal of children and returned 05/27/24 depression Abilify 10 mg at night for depression Sertraline 150 mg at bedtime for depression and anxiety disucss and educated on IOP program discuss [facility], [facility], [facility], [facility]- patient will check into IOP programs continue therapy will see weekly r/t post- educated on all medications, benefits, side effects and risk, and educated on depression, anxiety, and ADHD, mood d/o and educated on compliance of medications, appointment's, continue therapy discussion with patient about course of treatment and patient instructions. 2. Generalized anxiety disorder - improved and stable Sertraline 150 mg daily Vistaril 25 mg three times a day as needed for anxiety and panic Medication Management and Follow-Up- Plan:- Schedule follow-up appointments every 2-3 months to monitor the patient's response to the medication regimen.- Reinforce the importance of avoiding recreational drug use due to potential neurotoxicity and interactions with prescribed medications. THERAPY WEEKLY 3. Chronic post-traumatic stress disorder -therapy stable 4. Attention deficit hyperactivity disorder, predominantly inattentive type - stable ADHD testing reviewed JANA-2 possible dxn, no age in childhood dxn per patient issues with test, stresses in home noted, treated computer test like video game no rx for ADHD prescribed r/t cannabis- REPORTED USE OCCASIONAL will work on concentration and focus in therapy discuss Straterra - educated on rx - Straterra 40 mg daily in am no control substance prescribed r/t cannabis use educated on decrease cannabis and risk cannabis and medications http_s://www.nim.n .gov/health/topic s/alsmks-xxpgfw-qhh ications http_s://www.[facility].o /Toete-Jtbtpc-Ivt ness/Treatments/Men svk-Fiohvf-Oabrfeyk ons http_s://www.[employer].o /Evkqg-Gisnxl-Kmq ness/Mental-Health- Conditions http_s://psychcentr [employer].com/depression/t kh-bglsgxcra-mfmlru dr-io-huzbvejneh#tr eatments http__s://www.nimh. nih.gov/health/topi cs/ycnwhv-ymcngl-ta dications http__s://www.[facility]. org/Ndnec-Rjljud-Mh lness/Treatments/Me owlr-Qsppbm-Kerbxft ions Recommend decrease/stop cannabis use as it may be negatively impacting mood, motivation, anxiety, sleep, focus; can also contribute to development of psychosis Patient educated on all medications including potential benefits, side effects, risks. Educated on proper dosing schedule and importance of compliance 5. 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: Care Instructions material was published, Stress in Parents of Infants: Care Instructions material was published rx all sent 90 days 05/13/24 major depression- DCFS 04/17/24 removal of children and returned 05/27/24 depression Abilify 10 mg at night for depression Sertraline 150 mg at bedtime for depression and anxiety disucss and educated on IOP program discuss [facility], [facility], [facility], [facility]- patient will check into IOP programs continue therapy will see weekly r/t post- educated on all medications, benefits, side effects and risk, and educated on depression, anxiety, and ADHD, mood d/o and educated on compliance of medications, appointment's, continue therapy discussion with patient about course of treatment and patient instructions. 2. Generalized anxiety disorder - Sertraline 150 mg daily Vistaril 25 mg three times a day as needed for anxiety and panic Medication Management and Follow-Up- Plan:- Schedule follow-up appointments every 2-3 months to monitor the patient's response to the medication regimen.- Reinforce the importance of avoiding recreational drug use due to potential neurotoxicity and interactions with prescribed medications. THERAPY WEEKLY 3. Chronic post-traumatic stress disorder -therapy 4. Attention deficit hyperactivity disorder, predominantly inattentive type - ADHD testing reviewed JANA-2 possible dxn, no age in childhood dxn per patient issues with test, stresses in home noted, treated computer test like video game no rx for ADHD prescribed r/t cannabis- REPORTED USE OCCASIONAL will work on concentration and focus in therapy discuss Straterra - educated on rx - Straterra 40 mg daily in am no control substance prescribed r/t cannabis use educated on decrease cannabis and risk cannabis and medications http_s://www.nimh.n ih.gov/health/topic s/ffeshb-avwkqz-tub ications http_s://www.[facility].o /Xscgk-Cphqnb-Ptd ness/Treatments/Men mjn-Plekwp-Pencfxgc ons http_s://www.[facility].o /Dmgns-Ensttw-Bub ness/Mental-Health- Conditions http_s://psychcentr [employer].com/depression/t if-llrlzfvtt-ovkmds ft-yt-vtpofnegcn#tr eatments http__s://www.nimh. nih.gov/health/topi cs/xisxnp-huxasy-vu dications http__s://www.[facility]. org/Qrumt-Uxtmvt-Dh lness/Treatments/Me uigs-Gptuam-Fwntmua ions Recommend decrease/stop cannabis use as it may be negatively impacting mood, motivation, anxiety, sleep, focus; can also contribute to development of psychosis Patient educated on all medications including potential benefits, side effects, risks. Educated on proper dosing schedule and importance of compliance 5. 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 (ICD-10 - Z79.899) Medication Refill: Care Instructions material was published, Medication Refill: Care Instructions material was published rx all sent 90 days 07/09/24 continue therapy major depression- improved, stable DCFS 04/17/24 removal of children and returned 05/27/24 depression Abilify 10 mg at night for depression Sertraline 150 mg at bedtime for depression and anxiety disucss and educated on IOP program discuss [facility], [facility], [facility]- patient will check into IOP programs continue therapy will see weekly r/t post- educated on all medications, benefits, side effects and risk, and educated on depression, anxiety, and ADHD, mood d/o and educated on compliance of medications, appointment's, continue therapy discussion with patient about course of treatment and patient instructions. 2. Generalized anxiety disorder - improved and stable Sertraline 150 mg daily Vistaril 25 mg three times a day as needed for anxiety and panic Medication Management and Follow-Up- Plan:- Schedule follow-up appointments every 2-3 months to monitor the patient's response to the medication regimen.- Reinforce the importance of avoiding recreational drug use due to potential neurotoxicity and interactions with prescribed medications. THERAPY WEEKLY 3. Chronic post-traumatic stress disorder -therapy stable 4. Attention deficit hyperactivity disorder, predominantly inattentive type - stable ADHD testing reviewed JANA-2 possible dxn, no age in childhood dxn per patient issues with test, stresses in home noted, treated computer test like video game no rx for ADHD prescribed r/t cannabis- REPORTED USE OCCASIONAL will work on concentration and focus in therapy discuss Straterra - educated on rx - Straterra 40 mg daily in am no control substance prescribed r/t cannabis use educated on decrease cannabis and risk cannabis and medications http_s://www.nimh.n ih.gov/health/topic s/tbdgrw-wavpfm-clv ications http_s://www.[facility].o rg/Wwddg-Prlgaz-Ogz ness/Treatments/Men fkn-Qccdzk-Jsxesfzm ons http_s://www.[facility].o rg/Iayay-Ofxuxn-Xrd ness/Mental-Health- Conditions http_s://psychcentr al.com/depression/t el-sbojzsiwu-ofkyti wu-nj-tavspauvzb#tr eatments http__s://www.nimh. nih.gov/health/topi cs/azavoq-pgzfmc-vz dications http__s://www.[facility]. org/Ezfmj-Jwdbha-Pc lness/Treatments/Me dvqc-Fbyygb-Nxbwosg ions Recommend decrease/stop cannabis use as it may be negatively impacting mood, motivation, anxiety, sleep, focus; can also contribute to development of psychosis Patient educated on all medications including potential benefits, side effects, risks. Educated on proper dosing schedule and importance of compliance 5. 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 (ICD-10 - Z79.899) Medication Refill: Care Instructions material was published, Medication Refill: Care Instructions material was published rx all sent 90 days 05/13/24 continue therapy major depression- improved, stable DCFS 04/17/24 removal of children and returned 05/27/24 depression Abilify 10 mg at night for depression Sertraline 150 mg at bedtime for depression and anxiety disucss and educated on IOP program discuss [facility], [facility], [facility], [facility]- patient will check into IOP programs continue therapy will see weekly r/t post- educated on all medications, benefits, side effects and risk, and educated on depression, anxiety, and ADHD, mood d/o and educated on compliance of medications, appointment's, continue therapy discussion with patient about course of treatment and patient instructions. 2. Generalized anxiety disorder - improved and stable Sertraline 150 mg daily Vistaril 25 mg three times a day as needed for anxiety and panic Medication Management and Follow-Up- Plan:- Schedule follow-up appointments every 2-3 months to monitor the patient's response to the medication regimen.- Reinforce the importance of avoiding recreational drug use due to potential neurotoxicity and interactions with prescribed medications. THERAPY WEEKLY 3. Chronic post-traumatic stress disorder -therapy stable 4. Attention deficit hyperactivity disorder, predominantly inattentive type - stable ADHD testing reviewed JANA-2 possible dxn, no age in childhood dxn per patient issues with test, stresses in home noted, treated computer test like video game no rx for ADHD prescribed r/t cannabis- REPORTED USE OCCASIONAL will work on concentration and focus in therapy discuss Straterra - educated on rx - Straterra 40 mg daily in am no control substance prescribed r/t cannabis use educated on decrease cannabis and risk cannabis and medications http_s://www.nimh.n .gov/health/topic s/btzjlu-yqcxce-izi ications http_s://www.[facility].o rg/Dgscl-Fhlzfi-Hkl ness/Treatments/Men vbk-Yqxihx-Zicbegit ons http_s://www.[facility].o rg/Yxfyf-Ofnsrj-Fnl ness/Mental-Health- Conditions http_s://[employer]/depression/t ef-kdrmkujgs-gbngsj jn-ky-fadxwnfgbg#tr eatments http__s://www.nimh. nih.gov/health/topi cs/youtaj-ubhpvg-tr dications http__s://www.[facility]. org/Fcapj-Fydflq-Fx lness/Treatments/Me sddx-Cbnfxg-Kqxblnw ions Recommend decrease/stop cannabis use as it may be negatively impacting mood, motivation, anxiety, sleep, focus; can also contribute to development of psychosis Patient educated on all medications including potential benefits, side effects, risks. Educated on proper dosing schedule and importance of compliance 5. 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 therapy (ICD-10 - Z79.899) Medication Refill: Care Instructions material was published, Medication Refill: Care Instructions material was published rx all sent 90 days 07/09/24 continue therapy patient has made progress and improved in depression and anxiety, major depression- improved, stable DCFS 04/17/24 removal of children and returned 05/27/24 depression Abilify 10 mg at night for depression Sertraline 150 mg at bedtime for depression and anxiety educated on all medications, benefits, side effects and risk, and educated on depression, anxiety, and ADHD, mood d/o and educated on compliance of medications, appointment's, continue therapy discussion with patient about course of treatment and patient instructions. 2. Generalized anxiety disorder - improved and stable Sertraline 150 mg daily Vistaril 25 mg three times a day as needed for anxiety and panic Medication Management and Follow-Up- Plan:- Schedule follow-up appointments every 2-3 months to monitor the patient's response to the medication regimen.- Reinforce the importance of avoiding recreational drug use due to potential neurotoxicity and interactions with prescribed medications. THERAPY conitnue 3. Chronic post-traumatic stress disorder -therapy stable 4. Attention deficit hyperactivity disorder, predominantly inattentive type - stable ADHD testing reviewed JANA-2 possible dxn, no age in childhood dxn per patient issues with test, stresses in home noted, treated computer test like video game no rx for ADHD prescribed r/t cannabis- REPORTED USE OCCASIONAL and none recently will work on concentration and focus in therapy discuss Straterra - educated on rx - Straterra 40 mg daily in am no control substance prescribed r/t cannabis use educated on decrease cannabis and risk cannabis and medications http_s://www.[facility].gov/health/topic s/vzaalk-qlvxbj-vkw ications http_s://www.[facility].o /Locvh-Unzagc-Aic ness/Treatments/Men cwh-Yhsmmf-Ygkytftr ons http_s://www.[employer].o /Unokj-Avtlfm-Elp ness/Mental-Health- Conditions http_s://psychOn-Q-ity.com/depression/t ei-ugipmijtg-animbu hi-bj-qmdfgizqkw#tr eatments http__s://www.nimh. nih.gov/health/topi cs/vejotp-jmqkoz-hq dications http__s://www.[facility]. org/Uhhby-Kkvbiy-Oq lness/Treatments/Me oupe-Bufvks-Bjjhdnz ions Recommend decrease/stop cannabis use as it may be negatively impacting mood, motivation, anxiety, sleep, focus; can also contribute to development of psychosis Patient educated on all medications including potential benefits, side effects, risks. Educated on proper dosing schedule and importance of compliance 5. Long-term drug therapy 07/29/2024 Other skilled nursing (current) drug therapy (ICD-10 - Z79.899) Medication Refill: Care Instructions material was published, Medication Refill: Care Instructions material was published rx all sent 90 days 07/09/24 continue therapy patient has made progress and improved in depression and anxiety, major depression- improved, stable DCFS 04/17/24 removal of children and returned 05/27/24 depression hx Abilify 10 mg at night for depression Sertraline 150 mg at bedtime for depression and anxiety patient has made good progress and been in therapy and complaince with all appointments and medications, educated on all medications, benefits, side effects and risk, and educated on depression, anxiety, and ADHD, mood d/o and educated on compliance of medications, appointment's, continue therapy discussion with patient about course of treatment and patient instructions. 2. Generalized anxiety disorder - improved and stable Sertraline 150 mg daily Vistaril 25 mg three times a day as needed for anxiety and panic Medication Management and Follow-Up- Plan:- Schedule follow-up appointments every 2-3 months to monitor the patient's response to the medication regimen.- Reinforce the importance of avoiding recreational drug use due to potential neurotoxicity and interactions with prescribed medications. THERAPY conitnue 3. Chronic post-traumatic stress disorder -therapy stable 4. Attention deficit hyperactivity disorder, predominantly inattentive type - stable ADHD testing reviewed JANA-2 possible dxn, no age in childhood dxn per patient issues with test, stresses in home noted, treated computer test like video game no rx for ADHD prescribed r/t cannabis- REPORTED USE OCCASIONAL and none recently will work on concentration and focus in therapy discuss Straterra - educated on rx - Straterra 40 mg daily in am no control substance prescribed r/t cannabis use educated on decrease cannabis and risk cannabis and medications http_s://www.nimh.n ih.gov/health/topic s/zixfyo-bwyvze-atl ications http_s://www.[facility].o /Xrkgb-Dylwja-Ofj ness/Treatments/Men yfc-Mtqsoo-Fhtlsmmy ons http_s://www.[facility].o /Jjyfm-Jgbeig-Qcg ness/Mental-Health- Conditions http_s://psychcentr al.com/depression/t oa-jsmjelnhr-fhaxys yj-vy-mfkruehmno#tr eatments http__s://www.nimh. nih.gov/health/topi cs/ujzdxt-aklpoi-gk dications http__s://www.[facility]. org/Ejugx-Scslma-Mt lness/Treatments/Me gjwv-Tcvyph-Lahwrcq ions Recommend decrease/stop cannabis use as it may be negatively impacting mood, motivation, anxiety, sleep, focus; can also contribute to development of psychosis Patient educated on all medications including potential benefits, side effects, risks. Educated on proper dosing schedule and importance of compliance 5. Long-term drug therapy 08/19/2024 Post depression (ICD-10 - F53.0) Depression After Childbirth: Care Instructions material was published, Stress in Parents of Infants: Care Instructions material was published rx all sent 90 days 07/09/24 continue therapy patient has made progress and improved in depression and anxiety, and continue therapy major depression- improved, stable DCFS 04/17/24 removal of children and returned 05/27/24 depression hx Abilify 10 mg at night for depression Sertraline 150 mg at bedtime for depression and anxiety patient has made good progress and been in therapy and complaince with all appointments and medications, she is stable on rx and ok to schedule every 1-2 months appointments educated on all medications, benefits, side effects and risk, and educated on depression, anxiety, and ADHD, mood d/o and educated on compliance of medications, appointment's, continue therapy discussion with patient about course of treatment and patient instructions. 2. Generalized anxiety disorder - improved and stable Sertraline 150 mg daily Vistaril 25 mg three times a day as needed for anxiety and panic Medication Management and Follow-Up- Plan:- Schedule follow-up appointments every 2-3 months to monitor the patient's response to the medication regimen.- Reinforce the importance of avoiding recreational drug use due to potential neurotoxicity and interactions with prescribed medications. THERAPY conitnue 3. Chronic post-traumatic stress disorder -therapy stable 4. Attention deficit hyperactivity disorder, predominantly inattentive type - stable ADHD testing reviewed JANA-2 possible dxn, no age in childhood dxn per patient issues with test, stresses in home noted, treated computer test like video game no rx for ADHD prescribed r/t cannabis- not using will work on concentration and focus in therapy discuss Straterra - educated on rx - Straterra 40 mg daily in am no control substance prescribed r/t cannabis use educated on decrease cannabis and risk cannabis and medications http_s://www.nimh.n ih.gov/health/topic s/rmuwha-fpwboy-mnn ications http_s://www.[facility].o rg/Qeibk-Mfoorh-Vzo ness/Treatments/Men vew-Bzjnei-Vgwaeaar ons http_s://www.[facility].o rg/Hnkmu-Dsoevt-Vee ness/Mental-Health- Conditions http_s://psychcentr [employer].com/depression/t dj-zykwzwaec-rbyyhg sx-qw-hvpdfxqqif#tr eatments http__s://www.nimh. nih.gov/health/topi cs/ktdeeo-pshgcd-cz dications http__s://www.[facility]. org/Tutxs-Pdthex-Fr lness/Treatments/Me jvaj-Lqaejy-Ggsyins ions Recommend decrease/stop cannabis use as it may be negatively impacting mood, motivation, anxiety, sleep, focus; can also contribute to development of psychosis Patient educated on all medications including potential benefits, side effects, risks. Educated on proper dosing schedule and importance of compliance 5. Long-term drug therapy 08/05/2024 Other skilled nursing (current) drug therapy (ICD-10 - Z79.899) Medication Refill: Care Instructions material was published, Medication Refill: Care Instructions material was published rx all sent 90 days 07/09/24 continue therapy patient has made progress and improved in depression and anxiety, major depression- improved, stable DCFS 04/17/24 removal of children and returned 05/27/24 depression hx Abilify 10 mg at night for depression Sertraline 150 mg at bedtime for depression and anxiety patient has made good progress and been in therapy and complaince with all appointments and medications, educated on all medications, benefits, side effects and risk, and educated on depression, anxiety, and ADHD, mood d/o and educated on compliance of medications, appointment's, continue therapy discussion with patient about course of treatment and patient instructions. 2. Generalized anxiety disorder - improved and stable Sertraline 150 mg daily Vistaril 25 mg three times a day as needed for anxiety and panic Medication Management and Follow-Up- Plan:- Schedule follow-up appointments every 2-3 months to monitor the patient's response to the medication regimen.- Reinforce the importance of avoiding recreational drug use due to potential neurotoxicity and interactions with prescribed medications. THERAPY conitnue 3. Chronic post-traumatic stress disorder -therapy stable 4. Attention deficit hyperactivity disorder, predominantly inattentive type - stable ADHD testing reviewed JANA-2 possible dxn, no age in childhood dxn per patient issues with test, stresses in home noted, treated computer test like video game no rx for ADHD prescribed r/t cannabis- not using will work on concentration and focus in therapy discuss Straterra - educated on rx - Straterra 40 mg daily in am no control substance prescribed r/t cannabis use educated on decrease cannabis and risk cannabis and medications http_s://www.nimh.n ih.gov/health/topic s/isdtqv-enyvnf-tgd ications http_s://www.[facility].o rg/Dxjff-Jfryim-Iwr ness/Treatments/Men jfx-Brqjjs-Qwssivwb ons http_s://www.[facility].o rg/Hyqvx-Pxuuww-Hzh ness/Mental-Health- Conditions http_s://[employer].com/depression/t zc-msxfwpucs-otgmrc lp-eq-tzcnqetmjd#tr eatments http__s://www.nimh. nih.gov/health/topi cs/pldeqr-ktulah-gk dications http__s://www.[facility]. org/Fcsyd-Zoqwdy-Lb lness/Treatments/Me hugy-Bylgob-Kruncza ions Recommend decrease/stop cannabis use as it may be negatively impacting mood, motivation, anxiety, sleep, focus; can also contribute to development of psychosis Patient educated on all medications including potential benefits, side effects, risks. Educated on proper dosing schedule and importance of compliance 5. Long-term drug therapy 08/26/2024 Other skilled nursing (current) drug therapy (ICD-10 - Z79.899) Medication Refill: Care Instructions material was published, Medication Refill: Care Instructions material was published rx all sent 90 days 07/09/24 continue therapy patient has made progress and improved in depression and anxiety, and continue therapy major depression- improved, stable DCFS 04/17/24 removal of children and returned 05/27/24 depression hx Abilify 10 mg at night for depression Sertraline 150 mg at bedtime for depression and anxiety patient has made good progress and been in therapy and complaince with all appointments and medications, she is stable on rx and ok to schedule every 1-2 months appointments educated on all medications, benefits, side effects and risk, and educated on depression, anxiety, and ADHD, mood d/o and educated on compliance of medications, appointment's, continue therapy discussion with patient about course of treatment and patient instructions. 2. Generalized anxiety disorder - improved and stable Sertraline 150 mg daily Vistaril 25 mg three times a day as needed for anxiety and panic Medication Management and Follow-Up- Plan:- Schedule follow-up appointments every 2-3 months to monitor the patient's response to the medication regimen.- Reinforce the importance of avoiding recreational drug use due to potential neurotoxicity and interactions with prescribed medications. THERAPY conitnue 3. Chronic post-traumatic stress disorder -therapy stable 4. Attention deficit hyperactivity disorder, predominantly inattentive type - stable ADHD testing reviewed JANA-2 possible dxn, no age in childhood dxn per patient issues with test, stresses in home noted, treated computer test like video game no rx for ADHD prescribed r/t cannabis- not using will work on concentration and focus in therapy discuss Straterra - educated on rx - Straterra 40 mg daily in am no control substance prescribed r/t cannabis use educated on decrease cannabis and risk cannabis and medications http_s://www.[facility].gov/health/topic s/dnwhdg-jempnf-gxm ications http_s://www.[facility].o /Nehuc-Eaoszx-Yws ness/Treatments/Men jjs-Azgdjf-Wznnkdvr ons http_s://www.[facility].o /Isrmg-Fborhi-Eaf ness/Mental-Health- Conditions http_s://psychOn-Q-ity[employer]/depression/t tp-pggdlwtzf-cmudiu zz-ry-hscfcivxzg#tr eatments http__s://www.nimh. nih.gov/health/topi cs/tlvwri-qmbimu-if dications http__s://www.[facility]. org/Gnwrs-Mantls-Ho lness/Treatments/Me eent-Wksxcz-Snmihbx ions Recommend decrease/stop cannabis use as it may be negatively impacting mood, motivation, anxiety, sleep, focus; can also contribute to development of psychosis Patient educated on all medications including potential benefits, side effects, risks. Educated on proper dosing schedule and importance of compliance 5. Long-term drug therapy 09/02/2024 Other skilled nursing (current) drug therapy (ICD-10 - Z79.899) Medication Refill: Care Instructions material was published, Medication Refill: Care Instructions material was published rx all sent 90 days 09/02/24 continue therapy patient has made progress and improved in depression and anxiety, and continue therapy major depression- improved, stable DCFS 04/17/24 removal of children and returned 05/27/24 depression hx Abilify 10 mg at night for depression Sertraline 150 mg at bedtime for depression and anxiety patient has made good progress and been in therapy and complaince with all appointments and medications, she is stable on rx and ok to schedule every 1-2 months appointments educated on all medications, benefits, side effects and risk, and educated on depression, anxiety, and ADHD, mood d/o and educated on compliance of medications, appointment's, continue therapy discussion with patient about course of treatment and patient instructions. 2. Generalized anxiety disorder - improved and stable Sertraline 150 mg daily Vistaril 25 mg three times a day as needed for anxiety and panic Medication Management and Follow-Up- Plan:- Schedule follow-up appointments every 2-3 months to monitor the patient's response to the medication regimen.- Reinforce the importance of avoiding recreational drug use due to potential neurotoxicity and interactions with prescribed medications. THERAPY conitnue 3. Chronic post-traumatic stress disorder -therapy stable 4. Attention deficit hyperactivity disorder, predominantly inattentive type - stable ADHD testing reviewed JANA-2 possible dxn, no age in childhood dxn per patient issues with test, stresses in home noted, treated computer test like video game no rx for ADHD prescribed r/t cannabis- not using will work on concentration and focus in therapy discuss Straterra - educated on rx - Straterra 40 mg daily in am no control substance prescribed r/t cannabis use educated on decrease cannabis and risk cannabis and medications http_s://www.nimh.n ih.gov/health/topic s/wscnzy-drsxeq-ekv ications http_s://www.[facility].o rg/Odbdw-Rvxjhq-Aqh ness/Treatments/Men flt-Czubjn-Uijryiru ons http_s://www.[facility].o rg/Brnun-Wgyzzw-Qah ness/Mental-Health- Conditions http_s://psychcentr al.com/depression/t ku-mvsmaloum-culpwd wo-aj-jwzvhnzfji#tr eatments http__s://www.nimh. nih.gov/health/topi cs/ugyhql-korivz-on dications http__s://www.[facility]. org/Ewkst-Ycrnfp-Ir lness/Treatments/Me xuec-Frnaub-Bzsxeqh ions Recommend decrease/stop cannabis use as it may be negatively impacting mood, motivation, anxiety, sleep, focus; can also contribute to development of psychosis Patient educated on all medications including potential benefits, side effects, risks. Educated on proper dosing schedule and importance of compliance 5. Long-term drug therapy 04/11/2025 Post depression (ICD-10 - F53.0) Depression After Childbirth: Care Instructions material was published, Stress in Parents of Infants: Care Instructions material was published rx all sent 90 days continue therapy patient has made progress and improved in depression and anxiety, and continue therapy 1. major depression- stable DCFS 04/17/24 removal of children and returned 05/27/24 depression hx Abilify 10 mg at night for depression Sertraline 150 mg at bedtime for depression and anxiety aims= 0 04/11/25 educated on all medications, benefits, side effects and risk, and educated on depression, anxiety, and ADHD, mood d/o and educated on compliance of medications, appointment's, continue therapy discussion with patient about course of treatment and patient instructions. 2. Generalized anxiety disorder - stable Sertraline 150 mg daily Vistaril 25 mg three times a day as needed for anxiety and panic Medication Management and Follow-Up- Plan:- Schedule follow-up appointments every 2-3 months to monitor the patient's response to the medication regimen.- Reinforce the importance of avoiding recreational drug use due to potential neurotoxicity and interactions with prescribed medications. THERAPY conitnue 3. Chronic post-traumatic stress disorder - therapy stable 4. Attention deficit hyperactivity disorder, predominantly inattentive type - stable ADHD testing reviewed JANA-2 possible dxn, no age in childhood dxn per patient issues with test, stresses in home noted, treated computer test like video game no rx for ADHD prescribed r/t cannabis- not using will work on concentration and focus in therapy discuss Straterra - educated on rx - Straterra 40 mg daily in am no control substance prescribed r/t cannabis use educated on decrease cannabis and risk cannabis and medications http_s://www.nimh.n ih.gov/health/topic s/fczjwe-uwwgse-dtn ications http_s://www.[facility].o rg/Hoatd-Oinexf-Vdp ness/Treatments/Men nhp-Zvsxgb-Dootwjvs ons http_s://www.[facility].o rg/Dhzsn-Wtzwcw-Dqa ness/Mental-Health- Conditions http_s://psychcentr [employer].com/depression/t lg-nminjtteb-toivov xe-yo-kjwokmbmzl#tr eatmain http__s://www.nimh. nih.gov/health/topi cs/gmjnds-vltvqq-dz dications http__s://www.[facility]. org/Nswgt-Qdxyzd-Wt lness/Treatments/Me vlpe-Tqtrox-Gzuzcrh ions Recommend decrease/stop cannabis use as it may be negatively impacting mood, motivation, anxiety, sleep, focus; can also contribute to development of psychosis Patient educated on all medications including potential benefits, side effects, risks. Educated on proper dosing schedule and importance of compliance 5. 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 (ICD-10 - Z79.899) Medication Refill: Care Instructions material was published, Medication Refill: Care Instructions material was published rx all sent 90 days 05/13/24 major depression- improved, stable DCFS 04/17/24 removal of children and returned 05/27/24 depression Abilify 10 mg at night for depression Sertraline 150 mg at bedtime for depression and anxiety disucss and educated on IOP program discuss [facility], [facility], [facility], [facility]- patient will check into IOP programs continue therapy will see weekly r/t post- educated on all medications, benefits, side effects and risk, and educated on depression, anxiety, and ADHD, mood d/o and educated on compliance of medications, appointment's, continue therapy discussion with patient about course of treatment and patient instructions. 2. Generalized anxiety disorder - improved and stable Sertraline 150 mg daily Vistaril 25 mg three times a day as needed for anxiety and panic Medication Management and Follow-Up- Plan:- Schedule follow-up appointments every 2-3 months to monitor the patient's response to the medication regimen.- Reinforce the importance of avoiding recreational drug use due to potential neurotoxicity and interactions with prescribed medications. THERAPY WEEKLY 3. Chronic post-traumatic stress disorder -therapy stable 4. Attention deficit hyperactivity disorder, predominantly inattentive type - stable ADHD testing reviewed JANA-2 possible dxn, no age in childhood dxn per patient issues with test, stresses in home noted, treated computer test like video game no rx for ADHD prescribed r/t cannabis- REPORTED USE OCCASIONAL will work on concentration and focus in therapy discuss Straterra - educated on rx - Straterra 40 mg daily in am no control substance prescribed r/t cannabis use educated on decrease cannabis and risk cannabis and medications http_s://www.nim.n .gov/health/topic s/xaqacy-kqjtdn-xpi ications http_s://www.[facility].o rg/Jlhuh-Vyikbl-Uqm ness/Treatments/Men ohg-Auaupw-Olylpnyf ons http_s://www.[facility].o /Ezkki-Kfotyj-Cwh ness/Mental-Health- Conditions http_s://[employer]/depression/t zd-bvchsqtrb-hyyrss vr-rw-lqgpebnjsd#tr eatments http__s://www.nimh. nih.gov/health/topi cs/qygrvv-itxzwv-vg dications http__s://www.[facility]. org/Eavqz-Xhdpjt-Zs lness/Treatments/Me owiz-Mmqznr-Txsehgv ions Recommend decrease/stop cannabis use as it may be negatively impacting mood, motivation, anxiety, sleep, focus; can also contribute to development of psychosis Patient educated on all medications including potential benefits, side effects, risks. Educated on proper dosing schedule and importance of compliance 5. Long-term drug therapy 05/20/2024 Other skilled nursing (current) drug therapy (ICD-10 - Z79.899) Medication Refill: Care Instructions material was published, Medication Refill: Care Instructions material was published rx all sent 90 days today 05/13/24 recurrent major depression- DCFS 04/17/24 removal of children depression Abilify 10 mg at night for depression Increase Sertraline 150 mg at bedtime for depression and anxiety disucss and educated on IOP program discuss [facility], [facility], [facility], [facility]- patient will check into IOP programs continue therapy will see WEEKLY NOW r/t post- educated on all medications, benefits, side effects and risk, and educated on depression, anxiety, and ADHD, mood d/o and educated on compliance of medications, appointment's, continue therapy discussion with patient about course of treatment and patient instructions. 2. Generalized anxiety disorder - Sertraline 150 mg daily Vistaril 25 mg three times a day as needed for anxiety and panic Medication Management and Follow-Up- Plan:- Schedule follow-up appointments every 2-3 months to monitor the patient's response to the medication regimen.- Reinforce the importance of avoiding recreational drug use due to potential neurotoxicity and interactions with prescribed medications. THERAPY WEEKLY 3. Chronic post-traumatic stress disorder -therapy 4. Attention deficit hyperactivity disorder, predominantly inattentive type - ADHD testing reviewed JANA-2 possible dxn, no age in childhood dxn per patient issues with test, stresses in home noted, treated computer test like video game no rx for ADHD prescribed r/t cannabis- REPORTED USE OCCASIONAL will work on concentration and focus in therapy discuss Straterra - educated on rx - Straterra 40 mg daily in am no control substance prescribed r/t cannabis use educated on decrease cannabis and risk cannabis and medications http_s://www.nim.n .gov/health/topic s/ahdkvm-vxxwas-tui ications http_s://www[facility].o /Aovac-Plhevy-Iiw ness/Treatments/Men hlw-Diomiu-Iyjwkoky ons http_s://www.[facility].o /Ceuim-Vnknhf-Ird ness/Mental-Health- Conditions http_s://psych[employer]op[employer]yr [employer].com/depression/t xq-lamwnkmit-sqtctb qg-jd-juzwmtefoa#tr eatments http__s://www.nimh. nih.gov/health/topi cs/lnxebu-qeedxx-jt dications http__s://www.[facility]. org/Lwchh-Iafgwu-Jv lness/Treatments/Me egql-Pokmwv-Kpxfgui ions Recommend decrease/stop cannabis use as it may be negatively impacting mood, motivation, anxiety, sleep, focus; can also contribute to development of psychosis Patient educated on all medications including potential benefits, side effects, risks. Educated on proper dosing schedule and importance of compliance 5. Long-term drug therapy 05/27/2024 Post depression (ICD-10 - F53.0) Depression After Childbirth: Care Instructions material was published, Stress in Parents of Infants: Care Instructions material was published rx all sent 90 days today 05/13/24 recurrent major depression- DCFS 04/17/24 removal of children depression Abilify 10 mg at night for depression Sertraline 150 mg at bedtime for depression and anxiety disucss and educated on IOP program discuss [facility], [facility], [facility]- patient will check into IOP programs continue therapy will see WEEKLY NOW r/t post- educated on all medications, benefits, side effects and risk, and educated on depression, anxiety, and ADHD, mood d/o and educated on compliance of medications, appointment's, continue therapy discussion with patient about course of treatment and patient instructions. 2. Generalized anxiety disorder - Sertraline 150 mg daily Vistaril 25 mg three times a day as needed for anxiety and panic Medication Management and Follow-Up- Plan:- Schedule follow-up appointments every 2-3 months to monitor the patient's response to the medication regimen.- Reinforce the importance of avoiding recreational drug use due to potential neurotoxicity and interactions with prescribed medications. THERAPY WEEKLY 3. Chronic post-traumatic stress disorder -therapy 4. Attention deficit hyperactivity disorder, predominantly inattentive type - ADHD testing reviewed JANA-2 possible dxn, no age in childhood dxn per patient issues with test, stresses in home noted, treated computer test like video game no rx for ADHD prescribed r/t cannabis- REPORTED USE OCCASIONAL will work on concentration and focus in therapy discuss Straterra - educated on rx - Straterra 40 mg daily in am no control substance prescribed r/t cannabis use educated on decrease cannabis and risk cannabis and medications http_s://www.nimh.n ih.gov/health/topic s/vtsemf-ytaggu-soy ications http_s://www.[facility].o rg/Cpmxk-Otbuzr-Ces ness/Treatments/Men fac-Ifwqts-Hvkoykoa ons http_s://www.[facility].o rg/Ghkll-Jrtlwq-Gxw ness/Mental-Health- Conditions http_s://psychcentr al.com/depression/t as-nonmevyxy-rnxapt if-mx-vctzzqytdd#tr eatments http__s://www.nimh. nih.gov/health/topi cs/ifpbig-xqtgdx-qi dications http__s://www.[facility]. org/Ziyih-Uvawxv-An lness/Treatments/Me lpcf-Pdkprw-Notmywp ions Recommend decrease/stop cannabis use as it may be negatively impacting mood, motivation, anxiety, sleep, focus; can also contribute to development of psychosis Patient educated on all medications including potential benefits, side effects, risks. Educated on proper dosing schedule and importance of compliance 5. Long-term drug therapy 05/13/2024 Post depression (ICD-10 - F53.0) Depression After Childbirth: Care Instructions material was published, Stress in Parents of Infants: Care Instructions material was published rx all sent 90 days today 05/13/24 recurrent major depression- DCFS 04/17/24 removal of children depression Abilify 10 mg at night for depression Sertraline 100 mg at bedtime for depression and anxiety disucss and educated on IOP program discuss [facility], [facility], [facility], [facility]- patient will check into IOP programs National Registry for Antidepressants www.[facility].o rg/kicuvgkd-nvj-afq earch-programs/preg nancyregistry/antid epressants National Registry for Atypical Antipsychotics www. [facility]. org educated on medication, benefits, side effects and risk with and and mental health stabilityreviewed epocrates profile on all rx with patient continue therapy will see WEEKLY NOW r/t post- educated on all medications, benefits, side effects and risk, and educated on depression, anxiety, and ADHD, mood d/o and educated on compliance of medications, appointment's, continue therapy discussion with patient about course of treatment and patient instructions. 2. Generalized anxiety disorder - Sertraline 100 mg daily Vistaril 25 mg three times a day as needed for anxiety and panic Medication Management and Follow-Up- Plan:- Schedule follow-up appointments every 2-3 months to monitor the patient's response to the medication regimen.- Reinforce the importance of avoiding recreational drug use due to potential neurotoxicity and interactions with prescribed medications. THERAPY WEEKLY 3. Chronic post-traumatic stress disorder -therapy 4. Attention deficit hyperactivity disorder, predominantly inattentive type - ADHD testing reviewed JANA-2 possible dxn, no age in childhood dxn per patient issues with test, stresses in home noted, treated computer test like video game no rx for ADHD prescribed r/t cannabis- REPORTED USE OCCASIONAL will work on concentration and focus in therapy discuss Straterra - educated on rx - Straterra 40 mg daily in am no control substance prescribed r/t cannabis use educated on decrease cannabis and risk cannabis and medications http_s://www.nimh.n ih.gov/health/topic s/seepre-ycmtds-zfr ications http_s://www.[facility].o rg/Aelif-Fjscmq-Jfv ness/Treatments/Men xwl-Zruivn-Hkruslay ons http_s://www.[facility].o rg/Xlpvt-Rcbdnx-Qyc ness/Mental-Health- Conditions http_s://psychcentr [employer].com/depression/t cx-mxluccksh-vacafl ms-xf-gqxmamcbdy#tr eatments http__s://www.nimh. nih.gov/health/topi cs/ahayin-vfcqoi-de dications http__s://www.[facility]. org/Oecub-Tkajjw-Am lness/Treatments/Me lcsc-Rkfoez-Pzqobge ions Recommend decrease/stop cannabis use as it may be negatively impacting mood, motivation, anxiety, sleep, focus; can also contribute to development of psychosis Patient educated on all medications including potential benefits, side effects, risks. Educated on proper dosing schedule and importance of compliance 5. Long-term drug therapy 05/20/2024 Post depression (ICD-10 - F53.0) Depression After Childbirth: Care Instructions material was published, Stress in Parents of Infants: Care Instructions material was published rx all sent 90 days today 05/13/24 recurrent major depression- DCFS 04/17/24 removal of children depression Abilify 10 mg at night for depression Increase Sertraline 150 mg at bedtime for depression and anxiety disucss and educated on IOP program discuss [facility], [facility], [facility], [facility]- patient will check into IOP programs continue therapy will see WEEKLY NOW r/t post- educated on all medications, benefits, side effects and risk, and educated on depression, anxiety, and ADHD, mood d/o and educated on compliance of medications, appointment's, continue therapy discussion with patient about course of treatment and patient instructions. 2. Generalized anxiety disorder - Sertraline 150 mg daily Vistaril 25 mg three times a day as needed for anxiety and panic Medication Management and Follow-Up- Plan:- Schedule follow-up appointments every 2-3 months to monitor the patient's response to the medication regimen.- Reinforce the importance of avoiding recreational drug use due to potential neurotoxicity and interactions with prescribed medications. THERAPY WEEKLY 3. Chronic post-traumatic stress disorder -therapy 4. Attention deficit hyperactivity disorder, predominantly inattentive type - ADHD testing reviewed JANA-2 possible dxn, no age in childhood dxn per patient issues with test, stresses in home noted, treated computer test like video game no rx for ADHD prescribed r/t cannabis- REPORTED USE OCCASIONAL will work on concentration and focus in therapy discuss Straterra - educated on rx - Straterra 40 mg daily in am no control substance prescribed r/t cannabis use educated on decrease cannabis and risk cannabis and medications http_s://www.nim.n .gov/health/topic s/cundhm-esuemy-pcu ications http_s://www.[facility].o /Twiiv-Qfrpuh-Ths ness/Treatments/Men jrx-Xddgoy-Ducwxgfd ons http_s://www.[employer].o /Tzjrb-Cpwauj-Pfx ness/Mental-Health- Conditions http_s://psychcentr [employer].com/depression/t gq-vaofiazln-hsurid pe-vj-fktecmsiid#tr eatments http__s://www.nimh. nih.gov/health/topi cs/olotat-uqlrbn-jp dications http__s://www.[facility]. org/Hopyn-Aswhwa-Xo lness/Treatments/Me pydt-Ujhisd-Tyipito ions Recommend decrease/stop cannabis use as it may be negatively impacting mood, motivation, anxiety, sleep, focus; can also contribute to development of psychosis Patient educated on all medications including potential benefits, side effects, risks. Educated on proper dosing schedule and importance of compliance 5. Long-term drug therapy 06/10/2024 Post depression (ICD-10 - F53.0) Depression After Childbirth: Care Instructions material was published, Stress in Parents of Infants: Care Instructions material was published rx all sent 90 days 05/13/24 major depression- improved, stable DCFS 04/17/24 removal of children and returned 05/27/24 depression Abilify 10 mg at night for depression Sertraline 150 mg at bedtime for depression and anxiety disucss and educated on IOP program discuss [facility], [facility], [facility], [facility]- patient will check into IOP programs continue therapy will see weekly r/t post- educated on all medications, benefits, side effects and risk, and educated on depression, anxiety, and ADHD, mood d/o and educated on compliance of medications, appointment's, continue therapy discussion with patient about course of treatment and patient instructions. 2. Generalized anxiety disorder - improved and stable Sertraline 150 mg daily Vistaril 25 mg three times a day as needed for anxiety and panic Medication Management and Follow-Up- Plan:- Schedule follow-up appointments every 2-3 months to monitor the patient's response to the medication regimen.- Reinforce the importance of avoiding recreational drug use due to potential neurotoxicity and interactions with prescribed medications. THERAPY WEEKLY 3. Chronic post-traumatic stress disorder -therapy stable 4. Attention deficit hyperactivity disorder, predominantly inattentive type - stable ADHD testing reviewed JANA-2 possible dxn, no age in childhood dxn per patient issues with test, stresses in home noted, treated computer test like video game no rx for ADHD prescribed r/t cannabis- REPORTED USE OCCASIONAL will work on concentration and focus in therapy discuss Straterra - educated on rx - Straterra 40 mg daily in am no control substance prescribed r/t cannabis use educated on decrease cannabis and risk cannabis and medications http_s://www.nimh.n ih.gov/health/topic s/lsmuch-ynzots-kcj ications http_s://www.[facility].o /Agbap-Wjmhbk-Dsd ness/Treatments/Men cdf-Gdiurv-Jukwshet ons http_s://www.[facility].o /Mpydl-Mwpmqz-Kdq ness/Mental-Health- Conditions http_s://psychcentr al.com/depression/t cy-grhfqqjqc-fmfoop dh-tn-ygdsgmplyf#tr eatments http__s://www.nimh. nih.gov/health/topi cs/dkbita-ficdom-oe dications http__s://www.[facility]. org/Quchh-Zgkqdy-Mf lness/Treatments/Me oqgv-Vcoelw-Dadrmhf ions Recommend decrease/stop cannabis use as it may be negatively impacting mood, motivation, anxiety, sleep, focus; can also contribute to development of psychosis Patient educated on all medications including potential benefits, side effects, risks. Educated on proper dosing schedule and importance of compliance 5. Long-term drug therapy 09/02/2024 Post depression (ICD-10 - F53.0) Depression After Childbirth: Care Instructions material was published, Stress in Parents of Infants: Care Instructions material was published rx all sent 90 days 09/02/24 continue therapy patient has made progress and improved in depression and anxiety, and continue therapy major depression- improved, stable DCFS 04/17/24 removal of children and returned 05/27/24 depression hx Abilify 10 mg at night for depression Sertraline 150 mg at bedtime for depression and anxiety patient has made good progress and been in therapy and complaince with all appointments and medications, she is stable on rx and ok to schedule every 1-2 months appointments educated on all medications, benefits, side effects and risk, and educated on depression, anxiety, and ADHD, mood d/o and educated on compliance of medications, appointment's, continue therapy discussion with patient about course of treatment and patient instructions. 2. Generalized anxiety disorder - improved and stable Sertraline 150 mg daily Vistaril 25 mg three times a day as needed for anxiety and panic Medication Management and Follow-Up- Plan:- Schedule follow-up appointments every 2-3 months to monitor the patient's response to the medication regimen.- Reinforce the importance of avoiding recreational drug use due to potential neurotoxicity and interactions with prescribed medications. THERAPY conitnue 3. Chronic post-traumatic stress disorder -therapy stable 4. Attention deficit hyperactivity disorder, predominantly inattentive type - stable ADHD testing reviewed JANA-2 possible dxn, no age in childhood dxn per patient issues with test, stresses in home noted, treated computer test like video game no rx for ADHD prescribed r/t cannabis- not using will work on concentration and focus in therapy discuss Straterra - educated on rx - Straterra 40 mg daily in am no control substance prescribed r/t cannabis use educated on decrease cannabis and risk cannabis and medications http_s://www.nimh.n ih.gov/health/topic s/rbgbng-ofiuuk-vsx ications http_s://www.[facility].o rg/Lkulf-Xrmeij-Jbw ness/Treatments/Men gbg-Xzsear-Wappjwkb ons http_s://www.[facility].o rg/Rbrev-Iwisxg-Lje ness/Mental-Health- Conditions http_s://psychcentr al.com/depression/t nm-rguwilezr-egagcg aj-fk-rxkigbunuv#tr eatments http__s://www.nimh. nih.gov/health/topi cs/lwliwn-zozekq-to dications http__s://www.[facility]. org/Daycd-Dnilbn-Bh lness/Treatments/Me ilhb-Xbpqnp-Snrojvk ions Recommend decrease/stop cannabis use as it may be negatively impacting mood, motivation, anxiety, sleep, focus; can also contribute to development of psychosis Patient educated on all medications including potential benefits, side effects, risks. Educated on proper dosing schedule and importance of compliance 5. Long-term drug therapy 08/26/2024 Post depression (ICD-10 - F53.0) Depression After Childbirth: Care Instructions material was published, Stress in Parents of Infants: Care Instructions material was published rx all sent 90 days 07/09/24 continue therapy patient has made progress and improved in depression and anxiety, and continue therapy major depression- improved, stable DCFS 04/17/24 removal of children and returned 05/27/24 depression hx Abilify 10 mg at night for depression Sertraline 150 mg at bedtime for depression and anxiety patient has made good progress and been in therapy and complaince with all appointments and medications, she is stable on rx and ok to schedule every 1-2 months appointments educated on all medications, benefits, side effects and risk, and educated on depression, anxiety, and ADHD, mood d/o and educated on compliance of medications, appointment's, continue therapy discussion with patient about course of treatment and patient instructions. 2. Generalized anxiety disorder - improved and stable Sertraline 150 mg daily Vistaril 25 mg three times a day as needed for anxiety and panic Medication Management and Follow-Up- Plan:- Schedule follow-up appointments every 2-3 months to monitor the patient's response to the medication regimen.- Reinforce the importance of avoiding recreational drug use due to potential neurotoxicity and interactions with prescribed medications. THERAPY conitnue 3. Chronic post-traumatic stress disorder -therapy stable 4. Attention deficit hyperactivity disorder, predominantly inattentive type - stable ADHD testing reviewed JANA-2 possible dxn, no age in childhood dxn per patient issues with test, stresses in home noted, treated computer test like video game no rx for ADHD prescribed r/t cannabis- not using will work on concentration and focus in therapy discuss Straterra - educated on rx - Straterra 40 mg daily in am no control substance prescribed r/t cannabis use educated on decrease cannabis and risk cannabis and medications http_s://www.nim.n .gov/health/topic s/wwzkom-cpsgxf-rjd ications http_s://www.[facility].o rg/Pyxuk-Bhmvia-Ofw ness/Treatments/Men lsh-Jtykkb-Ayzciegv ons http_s://www.[facility].o /Gvfrz-Ucsqpg-Bmf ness/Mental-Health- Conditions http_s://[employer]/depression/t du-kerjoiksa-bijtbe wt-vq-lqyvnucdvq#tr eatments http__s://www.nimh. nih.gov/health/topi cs/ufepuy-qisdov-pe dications http__s://www.[facility]. org/Jdvde-Mekubf-Gb lness/Treatments/Me wavb-Xbornq-Ezmtgct ions Recommend decrease/stop cannabis use as it may be negatively impacting mood, motivation, anxiety, sleep, focus; can also contribute to development of psychosis Patient educated on all medications including potential benefits, side effects, risks. Educated on proper dosing schedule and importance of compliance 5. Long-term drug therapy 08/05/2024 Post depression (ICD-10 - F53.0) Depression After Childbirth: Care Instructions material was published, Stress in Parents of Infants: Care Instructions material was published rx all sent 90 days 07/09/24 continue therapy patient has made progress and improved in depression and anxiety, major depression- improved, stable DCFS 04/17/24 removal of children and returned 05/27/24 depression hx Abilify 10 mg at night for depression Sertraline 150 mg at bedtime for depression and anxiety patient has made good progress and been in therapy and complaince with all appointments and medications, educated on all medications, benefits, side effects and risk, and educated on depression, anxiety, and ADHD, mood d/o and educated on compliance of medications, appointment's, continue therapy discussion with patient about course of treatment and patient instructions. 2. Generalized anxiety disorder - improved and stable Sertraline 150 mg daily Vistaril 25 mg three times a day as needed for anxiety and panic Medication Management and Follow-Up- Plan:- Schedule follow-up appointments every 2-3 months to monitor the patient's response to the medication regimen.- Reinforce the importance of avoiding recreational drug use due to potential neurotoxicity and interactions with prescribed medications. THERAPY conitnue 3. Chronic post-traumatic stress disorder -therapy stable 4. Attention deficit hyperactivity disorder, predominantly inattentive type - stable ADHD testing reviewed JANA-2 possible dxn, no age in childhood dxn per patient issues with test, stresses in home noted, treated computer test like video game no rx for ADHD prescribed r/t cannabis- not using will work on concentration and focus in therapy discuss Straterra - educated on rx - Straterra 40 mg daily in am no control substance prescribed r/t cannabis use educated on decrease cannabis and risk cannabis and medications http_s://www.[facility].gov/health/topic s/amecat-blrtmd-ihw ications http_s://www.[facility]/Rcqdo-Perhct-Vng ness/Treatments/Men uvy-Xctipr-Dnbypprn ons http_s://www.[facility].o /Zmqxf-Czjpgv-Ajn ness/Mental-Health- Conditions http_s://psychSopogyr [employer].com/depression/t cp-wefqqvkve-widruv re-hy-nuuaxfjzup#tr eatments http__s://www.nimh. nih.gov/health/topi cs/oqxmdf-vjcmih-lz dications http__s://www.[facility]. org/Qcgjm-Gerqli-Tr lness/Treatments/Me nbjb-Zcxaci-Amvfhni ions Recommend decrease/stop cannabis use as it may be negatively impacting mood, motivation, anxiety, sleep, focus; can also contribute to development of psychosis Patient educated on all medications including potential benefits, side effects, risks. Educated on proper dosing schedule and importance of compliance 5. Long-term drug therapy 07/29/2024 Post depression (ICD-10 - F53.0) Depression After Childbirth: Care Instructions material was published, Stress in Parents of Infants: Care Instructions material was published rx all sent 90 days 07/09/24 continue therapy patient has made progress and improved in depression and anxiety, major depression- improved, stable DCFS 04/17/24 removal of children and returned 05/27/24 depression hx Abilify 10 mg at night for depression Sertraline 150 mg at bedtime for depression and anxiety patient has made good progress and been in therapy and complaince with all appointments and medications, educated on all medications, benefits, side effects and risk, and educated on depression, anxiety, and ADHD, mood d/o and educated on compliance of medications, appointment's, continue therapy discussion with patient about course of treatment and patient instructions. 2. Generalized anxiety disorder - improved and stable Sertraline 150 mg daily Vistaril 25 mg three times a day as needed for anxiety and panic Medication Management and Follow-Up- Plan:- Schedule follow-up appointments every 2-3 months to monitor the patient's response to the medication regimen.- Reinforce the importance of avoiding recreational drug use due to potential neurotoxicity and interactions with prescribed medications. THERAPY conitnue 3. Chronic post-traumatic stress disorder -therapy stable 4. Attention deficit hyperactivity disorder, predominantly inattentive type - stable ADHD testing reviewed JANA-2 possible dxn, no age in childhood dxn per patient issues with test, stresses in home noted, treated computer test like video game no rx for ADHD prescribed r/t cannabis- REPORTED USE OCCASIONAL and none recently will work on concentration and focus in therapy discuss Straterra - educated on rx - Straterra 40 mg daily in am no control substance prescribed r/t cannabis use educated on decrease cannabis and risk cannabis and medications http_s://www.nimh.n ih.gov/health/topic s/excfki-aydxgf-sba ications http_s://www.[facility]udson.o /Sfxvl-Otbmwa-Yxk ness/Treatments/Men jrp-Yluzpr-Zbggqkkh ons http_s://www.[facility]udson.o /Mnctq-Qjdwmp-Bcf ness/Mental-Health- Conditions http_s://psychcentr [employer].com/depression/t uf-qeffymrqn-zfxwzc kw-dx-rrvjzcrayv#tr eatments http__s://www.nimh. nih.gov/health/topi cs/zrzrkg-zaxmcu-wx dications http__s://www.[facility]. org/Hgatd-Fwgndt-Dh lness/Treatments/Me afds-Qnczvx-Xehlwdo ions Recommend decrease/stop cannabis use as it may be negatively impacting mood, motivation, anxiety, sleep, focus; can also contribute to development of psychosis Patient educated on all medications including potential benefits, side effects, risks. Educated on proper dosing schedule and importance of compliance 5. Long-term drug therapy 07/16/2024 Post depression (ICD-10 - F53.0) Depression After Childbirth: Care Instructions material was published, Stress in Parents of Infants: Care Instructions material was published rx all sent 90 days 07/09/24 continue therapy patient has made progress and improved in depression and anxiety, major depression- improved, stable DCFS 04/17/24 removal of children and returned 05/27/24 depression Abilify 10 mg at night for depression Sertraline 150 mg at bedtime for depression and anxiety educated on all medications, benefits, side effects and risk, and educated on depression, anxiety, and ADHD, mood d/o and educated on compliance of medications, appointment's, continue therapy discussion with patient about course of treatment and patient instructions. 2. Generalized anxiety disorder - improved and stable Sertraline 150 mg daily Vistaril 25 mg three times a day as needed for anxiety and panic Medication Management and Follow-Up- Plan:- Schedule follow-up appointments every 2-3 months to monitor the patient's response to the medication regimen.- Reinforce the importance of avoiding recreational drug use due to potential neurotoxicity and interactions with prescribed medications. THERAPY conitnue 3. Chronic post-traumatic stress disorder -therapy stable 4. Attention deficit hyperactivity disorder, predominantly inattentive type - stable ADHD testing reviewed JANA-2 possible dxn, no age in childhood dxn per patient issues with test, stresses in home noted, treated computer test like video game no rx for ADHD prescribed r/t cannabis- REPORTED USE OCCASIONAL and none recently will work on concentration and focus in therapy discuss Straterra - educated on rx - Straterra 40 mg daily in am no control substance prescribed r/t cannabis use educated on decrease cannabis and risk cannabis and medications http_s://www.nimh.n ih.gov/health/topic s/wwvlop-vmhdfr-kwi ications http_s://www.[facility]udson.o rg/Lspne-Ysbyfi-Wrb ness/Treatments/Men xlp-Loctjj-Yafviwgw ons http_s://www.[facility]udson.o rg/Spjyo-Udyyhq-Tvz ness/Mental-Health- Conditions http_s://psychcentr al.com/depression/t ei-fgigcihvw-vupvdf ok-va-cipmgonrcv#tr eatments http__s://www.nimh. nih.gov/health/topi cs/ophcjg-hughds-rn dications http__s://www.[facility]udson. org/Mlcld-Gqqmry-Yw lness/Treatments/Me mnxc-Meughf-Cvixttd ions Recommend decrease/stop cannabis use as it may be negatively impacting mood, motivation, anxiety, sleep, focus; can also contribute to development of psychosis Patient educated on all medications including potential benefits, side effects, risks. Educated on proper dosing schedule and importance of compliance 5. Long-term drug therapy 07/09/2024 Post depression (ICD-10 - F53.0) Depression After Childbirth: Care Instructions material was published, Stress in Parents of Infants: Care Instructions material was published rx all sent 90 days 07/09/24 continue therapy major depression- improved, stable DCFS 04/17/24 removal of children and returned 05/27/24 depression Abilify 10 mg at night for depression Sertraline 150 mg at bedtime for depression and anxiety disucss and educated on IOP program discuss [facility], [facility], [facility], [facility]- patient will check into IOP programs continue therapy will see weekly r/t post- educated on all medications, benefits, side effects and risk, and educated on depression, anxiety, and ADHD, mood d/o and educated on compliance of medications, appointment's, continue therapy discussion with patient about course of treatment and patient instructions. 2. Generalized anxiety disorder - improved and stable Sertraline 150 mg daily Vistaril 25 mg three times a day as needed for anxiety and panic Medication Management and Follow-Up- Plan:- Schedule follow-up appointments every 2-3 months to monitor the patient's response to the medication regimen.- Reinforce the importance of avoiding recreational drug use due to potential neurotoxicity and interactions with prescribed medications. THERAPY WEEKLY 3. Chronic post-traumatic stress disorder -therapy stable 4. Attention deficit hyperactivity disorder, predominantly inattentive type - stable ADHD testing reviewed JANA-2 possible dxn, no age in childhood dxn per patient issues with test, stresses in home noted, treated computer test like video game no rx for ADHD prescribed r/t cannabis- REPORTED USE OCCASIONAL will work on concentration and focus in therapy discuss Straterra - educated on rx - Straterra 40 mg daily in am no control substance prescribed r/t cannabis use educated on decrease cannabis and risk cannabis and medications http_s://www.nimh.n ih.gov/health/topic s/chrxmq-rfwlue-sii ications http_s://www.[facility]udson.o rg/Mtgen-Uknwnv-Mew ness/Treatments/Men jdc-Joxzqu-Vqkzfecf ons http_s://www.[facility]udson.o rg/Wxejr-Fkfarq-Soa ness/Mental-Health- Conditions http_s://psychSopogyr [employer].com/depression/t yn-pgnegugav-dhizua ve-je-ysglxsncfe#tr eatments http__s://www.nimh. nih.gov/health/topi cs/qydruj-lnrtqh-ix dications http__s://www.[facility]. org/Ppqfm-Yfxbxv-My lness/Treatments/Me zcgz-Qiedkm-Hixgabw ions Recommend decrease/stop cannabis use as it may be negatively impacting mood, motivation, anxiety, sleep, focus; can also contribute to development of psychosis Patient educated on all medications including potential benefits, side effects, risks. Educated on proper dosing schedule and importance of compliance 5. Long-term drug therapy 06/21/2024 Post depression (ICD-10 - F53.0) Depression After Childbirth: Care Instructions material was published, Stress in Parents of Infants: Care Instructions material was published rx all sent 90 days 05/13/24 continue therapy major depression- improved, stable DCFS 04/17/24 removal of children and returned 05/27/24 depression Abilify 10 mg at night for depression Sertraline 150 mg at bedtime for depression and anxiety disucss and educated on IOP program discuss [facility], [facility], [facility], [facility]- patient will check into IOP programs continue therapy will see weekly r/t post- educated on all medications, benefits, side effects and risk, and educated on depression, anxiety, and ADHD, mood d/o and educated on compliance of medications, appointment's, continue therapy discussion with patient about course of treatment and patient instructions. 2. Generalized anxiety disorder - improved and stable Sertraline 150 mg daily Vistaril 25 mg three times a day as needed for anxiety and panic Medication Management and Follow-Up- Plan:- Schedule follow-up appointments every 2-3 months to monitor the patient's response to the medication regimen.- Reinforce the importance of avoiding recreational drug use due to potential neurotoxicity and interactions with prescribed medications. THERAPY WEEKLY 3. Chronic post-traumatic stress disorder -therapy stable 4. Attention deficit hyperactivity disorder, predominantly inattentive type - stable ADHD testing reviewed JANA-2 possible dxn, no age in childhood dxn per patient issues with test, stresses in home noted, treated computer test like video game no rx for ADHD prescribed r/t cannabis- REPORTED USE OCCASIONAL will work on concentration and focus in therapy discuss Straterra - educated on rx - Straterra 40 mg daily in am no control substance prescribed r/t cannabis use educated on decrease cannabis and risk cannabis and medications http_s://www.nim.n .gov/health/topic s/raxzcs-cabvew-tax ications http_s://www.[facility]/Cjtet-Xevuov-Wrz ness/Treatments/Men slj-Pytbmm-Kfvsnxcr ons http_s://www.[employer].o /Vfygu-Levzsw-Slo ness/Mental-Health- Conditions http_s://psychOn-Q-ity.com/depression/t db-exwvswbid-wwkuqj xu-th-cuttlefnja#tr eatments http__s://www.nimh. nih.gov/health/topi cs/nvnwdi-mnbxph-lo dications http__s://www.[facility]. org/Mxszy-Twsxoj-Td lness/Treatments/Me ruux-Nnshrf-Tufqoad ions Recommend decrease/stop cannabis use as it may be negatively impacting mood, motivation, anxiety, sleep, focus; can also contribute to development of psychosis Patient educated on all medications including potential benefits, side effects, risks. Educated on proper dosing schedule and importance of compliance 5. Long-term drug therapy 05/13/2024 Other Learning About Depression material was published, Depression Treatment: Care Instructions material was published, Learning About Antidepressants material was published, Suicidal Thoughts and Behavior: Care Instructions material was published Psychosis: Care Instructions material was published, Learning About How to Get Help During a Mental Health Crisis material was published, Learning About How to Get Help During a Mental Health Crisis material was published, Learning About Movement Disorders From Antipsychotic Medicines material was published rx all sent 90 days today 10/7/24 recurrent major depression- DCFS 04/17/24 removal of children depression Abilify 10 mg at night for depression Sertraline 100 mg at bedtime for depression and anxiety disucss and educated on IOP program discuss [facility], [facility], [facility], [facility]- patient will check into IOP programs National Registry for Antidepressants www.[facility].o rg/fzosczbq-cnp-ett earch-programs/preg nancyregistry/antid epressants National Registry for Atypical Antipsychotics www. [facility]. org educated on medication, benefits, side effects and risk with and and mental health stabilityreviewed epocrates profile on all rx with patient continue therapy will see WEEKLY NOW r/t post- educated on all medications, benefits, side effects and risk, and educated on depression, anxiety, and ADHD, mood d/o and educated on compliance of medications, appointment's, continue therapy discussion with patient about course of treatment and patient instructions. 2. Generalized anxiety disorder - Sertraline 100 mg daily Vistaril 25 mg three times a day as needed for anxiety and panic Medication Management and Follow-Up- Plan:- Schedule follow-up appointments every 2-3 months to monitor the patient's response to the medication regimen.- Reinforce the importance of avoiding recreational drug use due to potential neurotoxicity and interactions with prescribed medications. THERAPY WEEKLY 3. Chronic post-traumatic stress disorder -therapy 4. Attention deficit hyperactivity disorder, predominantly inattentive type - ADHD testing reviewed JANA-2 possible dxn, no age in childhood dxn per patient issues with test, stresses in home noted, treated computer test like video game no rx for ADHD prescribed r/t cannabis- REPORTED USE OCCASIONAL will work on concentration and focus in therapy discuss Straterra - educated on rx - Straterra 40 mg daily in am no control substance prescribed r/t cannabis use educated on decrease cannabis and risk cannabis and medications http_s://www.nimh.n ih.gov/health/topic s/qejryq-wfewcq-nmw ications http_s://www.[facility]udson.o rg/Ptkhk-Fxazor-Mhc ness/Treatments/Men jpe-Ltpnlw-Wgqlvsvc ons http_s://www.[facility]udson.o rg/Ydisw-Lmvixj-Cxm ness/Mental-Health- Conditions http_s://psychcentr al.com/depression/t hp-tszeyjyzb-asavkf oa-wf-sybnbdefuz#tr eatments http__s://www.nimh. nih.gov/health/topi cs/bdtbxo-nweuqt-pw dications http__s://www.[facility]. org/Siyie-Npxyfv-Ws lness/Treatments/Me sscf-Onygtg-Chcvjfu ions Recommend decrease/stop cannabis use as it may be negatively impacting mood, motivation, anxiety, sleep, focus; can also contribute to development of psychosis Patient educated on all medications including potential benefits, side effects, risks. Educated on proper dosing schedule and importance of compliance 5. Long-term drug therapy Plan Of Treatment Next Appt Details Provider Name:Eleanor Whelan, 05/09/2025 01:00:00 PM, [address], [address], [address], Provider Name:Eleanor Whelan, 05/23/2025 01:00:00 PM, [address], [address], [place], [address], Provider Name:Jesi Dao , 06/27/2025 10:45:00 AM, [address], [address], [place], [address], Insurance Providers Payer Name Payer Address Payer Phone Subscriber Number Group Number Insured Name Patient Relationship to Insured Coverage Start Date Coverage End Date [facility] [address] [place] [phone] [id number] SHAUNA FENTON Self - patient is the insured Medical (General) History Medical History History ICD Code Problems: Attention deficit hyperactivit y disorder Attention deficit hyperactivity disorder , predominantly inattentive type Chronic post-traumatic stress disorder Generalized anxiety disorder Long-term drug therapy Mild recurrent major depression Psychotic disorder Weight gain , abdominal aortic aneurysm: No undefined atrial fibrillation: No chronic fatigue syndrome: No hyperlipidemia: No hypertension: No Parkinson's disease: No restless leg syndrome: No stroke: No subdural hematoma: No type 1 diabetes mellitus: No vitamin B12 deficiency: Yes vitamin D deficiency: Yes Surgical History Surgery Date(Month/Year) aortic valve replacement HX FX RT leg,
== END 2025-05-09 11:30 | disposition home or self-care (01) ==
PROVIDERS: PCP Nurse Practitioner Family
DX: N93.9 Abnormal uterine and vaginal bleeding, unspecified (principal)
CPT/HCPCS: 76830; 76856